=== PATIENT | male | born 1935 | race Caucasian/White ===

== ENCOUNTER 2017-01-03 07:14 | Outpatient (CLI) | payer MEDICARE, OTHER | END 2017-01-03 07:15 | disposition home or self-care (01) | DX: R05 Cough (principal); J90 Pleural effusion, not elsewhere classified ==

== ENCOUNTER 2017-01-30 13:05 | Outpatient (CLI) | payer MEDICARE, OTHER ==
[2017-01-30] MEDS ORDERED: BUFFERED LIDOCAINE 10 ML SYRINGE IU ONE (14:57)
== END 2017-01-30 13:06 | disposition home or self-care (01) ==
DX: J90 Pleural effusion, not elsewhere classified (principal); Z79.01 Long term (current) use of anticoagulants

== ENCOUNTER 2017-02-07 14:21 | Outpatient (CLI) | payer MEDICARE, OTHER | END 2017-02-07 14:22 | disposition home or self-care (01) | DX: I10 Essential (primary) hypertension (principal); I48.0 Paroxysmal atrial fibrillation; R94.6 Abnormal results of thyroid function studies; R06.09 Other forms of dyspnea ==

== ENCOUNTER 2017-10-10 10:27 | Outpatient (CLI) | payer MEDICARE, OTHER ==
[2017-10-10 19:37] LABS: BASOPHILS % (AUTO) 0.6 %; EOSINOPHILS # (AUTO) 0.1 10^3/uL (0.0-0.7); EOSINOPHILS % (AUTO) 1.1 %; HGB - HEMOGLOBIN 12.2 g/dL (14.0-18.0); LYMPHOCYTES % (AUTO) 16.1 %; MEAN CORPUSCULAR HEMOGLOBIN 26.8 pg (27.0-31.0); MEAN CORPUSCULAR HGB CONC 31.2 g/dL (32.0-36.0); MEAN CORPUSCULAR VOLUME 86.1 fL (80.0-94.0); MEAN PLATELET VOLUME 9.3 fL (7.4-11.4); MONOCYTES # (AUTO) 0.6 10^3/uL (0.0-1.0); NEUTROPHILS # (AUTO) 4.6 10^3/uL (1.5-6.6); NEUTROPHILS % (AUTO) 72.2 %; NUCLEATED RED BLOOD CELLS AUTO 0.1 /100WBC; RED BLOOD COUNT 4.53 10^6/uL (4.70-6.10); RED CELL DISTRIBUTION WIDTH 20.4 % (12.0-15.0); UNCORRECTED WHITE BLOOD COUNT 6.4 x10^3/uL; WHITE BLOOD COUNT 6.4 x10^3/uL (4.8-10.8)
[2017-10-10 20:18] LABS: PLATELET ESTIMATE, MANUAL NORMAL (130-450,000) (NORMAL); PLATELET MORPHOLOGY NORMAL APPEARANCE (NORMAL)
[2017-10-10 20:47] LABS: ALBUMIN/GLOBULIN RATIO 1.3 (1.0-2.2); BILIRUBIN,TOTAL 0.7 mg/dL (0.2-1.0); CALCIUM 9.2 mg/dL (8.5-10.3); CREATININE 1.6 mg/dL (0.6-1.2); POTASSIUM 4.6 mmol/L (3.5-5.0); TOTAL PROTEIN 7.5 g/dL (6.7-8.2)
== END 2017-10-10 10:28 | disposition home or self-care (01) ==
LOC: LAB.WCP 10:27
PROVIDERS: ATTEND Family Medicine
DX: D64.9 Anemia, unspecified (principal); J44.9 Chronic obstructive pulmonary disease, unspecified; I50.9 Heart failure, unspecified
CPT/HCPCS: 36415; 80053; 82728; 83540; 84466; 85025

== ENCOUNTER 2018-01-15 12:32 | Day surgery (SDC) | payer MEDICARE, OTHER ==
[2018-01-15] MEDS ORDERED: LACTATED RINGERS 1,000 ML IV ONE (13:13)
[2018-01-15] MEDS ORDERED: fentaNYL 100 MCG/2 ML VIAL IVP ONE (13:50)
[2018-01-15] MEDS ORDERED: MIDAZOLAM 2 MG/2 ML VIAL IVP ONE (13:50)
[2018-01-15 14:05] VITALS: BP 106/63
--- NOTE | 2018-01-15 20:07 | PROCEDURE REPORT ---
DATE OF SERVICE: 01/15/2018 Physician: Abdi Durand MD PROCEDURE PERFORMED: Esophagogastroduodenoscopy with biopsy. ENDOSCOPIST: Abdi Durand MD PRIMARY CARE PHYSICIAN: Mateus Sharpe MD INDICATION: Iron deficiency anemia. PREMEDICATION 1. Fentanyl 50 mcg. 2. Versed 4 mg IV titration. DESCRIPTION OF PROCEDURE: After informed consent was obtained, the patient was placed in the left lateral decubitus position. The video upper scope was placed into the oropharynx, which the patient self-swallowed into the esophagus. There may have been a Zenker diverticulum present. The esophagus, stomach, and duodenum were carefully examined. On withdrawal, retroflex view of the GE junction was performed. Scope was removed. The patient tolerated the procedure well. BLOOD LOSS: None COMPLICATIONS: None. TOTAL SEDATION TIME: 11 minutes. FINDINGS 1. Blue esophagus with [place] classification C4M7. Biopsy taken times several every 2 cm in 4 quadrants for screening. 2. Normal proximal stomach, but distally there is prepyloric erythema and edema in a rather serpiginous pattern. Biopsies taken to rule out Helicobacter. 3. Normal duodenal bulb and sweep. Biopsy taken to rule out celiac disease. The patient will follow up with Dr. Cantor to discuss. We will plan on restarting his Xarelto in 3-4 days. cc: Mateus Sharpe MD TD: 01/15/2018 20:06 MTDD
== END 2018-01-15 12:33 | disposition home or self-care (01) ==
LOC: SDS 12:32
PROVIDERS: ATTEND Internal Medicine Gastroenterology
PROC: 0DB58ZX Excision of Esophagus, Via Natural or Artificial Opening Endoscopic, Diagnostic (ICD-10-PCS; 2018-01-15)
PROC: 0DB98ZX Excision of Duodenum, Via Natural or Artificial Opening Endoscopic, Diagnostic (ICD-10-PCS; principal; 2018-01-15 13:30)
DX: D50.9 Iron deficiency anemia, unspecified (principal); K22.70 Barrett's esophagus without dysplasia; I48.91 Unspecified atrial fibrillation; Z79.01 Long term (current) use of anticoagulants; I10 Essential (primary) hypertension; E78.00 Pure hypercholesterolemia, unspecified; Z95.0 Presence of cardiac pacemaker; Z87.891 Personal history of nicotine dependence
CPT/HCPCS: 43239; J7120

== ENCOUNTER 2018-07-17 11:50 | Outpatient (CLI) | payer MEDICARE, OTHER ==
[2018-07-17 19:30] LABS: BASOPHILS % (AUTO) 0.4 %; EOSINOPHILS # (AUTO) 0.1 10^3/uL (0.0-0.7); EOSINOPHILS % (AUTO) 1.1 %; HGB - HEMOGLOBIN 13.7 g/dL (14.0-18.0); LYMPHOCYTES # (AUTO) 0.9 10^3/uL (1.5-3.5); LYMPHOCYTES % (AUTO) 14.9 %; MEAN CORPUSCULAR HEMOGLOBIN 30.9 pg (27.0-31.0); MEAN CORPUSCULAR VOLUME 93.7 fL (80.0-94.0); MEAN PLATELET VOLUME 9.9 fL (7.4-11.4); MONOCYTES # (AUTO) 0.7 10^3/uL (0.0-1.0); MONOCYTES % (AUTO) 11.5 %; NEUTROPHILS # (AUTO) 4.1 10^3/uL (1.5-6.6); NEUTROPHILS % (AUTO) 72.1 %; PLT - PLATELET COUNT 159 10^3/uL (130-450); RED BLOOD COUNT 4.43 10^6/uL (4.70-6.10); RED CELL DISTRIBUTION WIDTH 15.1 % (12.0-15.0); WHITE BLOOD COUNT 5.7 x10^3/uL (4.8-10.8)
== END 2018-07-17 11:51 ==
LOC: LAB.WCP 11:50
PROVIDERS: ATTEND Internal Medicine
DX: D50.9 Iron deficiency anemia, unspecified (principal)
CPT/HCPCS: 36415; 82728; 85025

== ENCOUNTER 2018-08-27 09:48 | Day surgery (SDC) | payer MEDICARE, OTHER ==
[2018-08-27] MEDS ORDERED: LACTATED RINGERS 1,000 ML IV ONE (11:00)
[2018-08-27 12:43] VITALS: BP 128/73
== END 2018-08-27 09:49 | disposition home or self-care (01) ==
LOC: SDS 09:48
PROVIDERS: ATTEND Internal Medicine
PROC: 0DJD8ZZ Inspection of Lower Intestinal Tract, Via Natural or Artificial Opening Endoscopic (ICD-10-PCS; principal; 2018-08-27 11:00)
DX: D50.0 Iron deficiency anemia secondary to blood loss (chronic) (principal); Q27.33 Arteriovenous malformation of digestive system vessel; K64.1 Second degree hemorrhoids; I48.91 Unspecified atrial fibrillation; Z79.01 Long term (current) use of anticoagulants
CPT/HCPCS: 45378; J7120

== ENCOUNTER 2018-10-24 08:00 | Outpatient (CLI) | payer MEDICARE, OTHER ==
[2018-10-24 13:20] LABS: BASOPHILS % (AUTO) 0.8 %; EOSINOPHILS % (AUTO) 0.5 %; HGB - HEMOGLOBIN 13.2 g/dL (14.0-18.0); LYMPHOCYTES # (AUTO) 0.5 10^3/uL (1.5-3.5); LYMPHOCYTES % (AUTO) 9.4 %; MEAN CORPUSCULAR HEMOGLOBIN 30.7 pg (27.0-31.0); MEAN CORPUSCULAR HGB CONC 33.4 g/dL (32.0-36.0); MEAN CORPUSCULAR VOLUME 91.8 fL (80.0-94.0); MEAN PLATELET VOLUME 9.9 fL (7.4-11.4); MONOCYTES # (AUTO) 0.8 10^3/uL (0.0-1.0); MONOCYTES % (AUTO) 15.1 %; NEUTROPHILS # (AUTO) 3.8 10^3/uL (1.5-6.6); NEUTROPHILS % (AUTO) 74.2 %; PLT - PLATELET COUNT 128 10^3/uL (130-450); RED BLOOD COUNT 4.29 10^6/uL (4.70-6.10); RED CELL DISTRIBUTION WIDTH 14.7 % (12.0-15.0); WHITE BLOOD COUNT 5.2 x10^3/uL (4.8-10.8)
[2018-10-24 14:26] LABS: % IRON SATURATION 8 % (20-50); IRON 30 ug/dL (45-182); TOTAL IRON BINDING CAPACITY 364 ug/dL (250-450); TRANSFERRIN 260 mg/dL (180-329)
== END 2018-10-24 23:59 | disposition home or self-care (01) ==
LOC: LAB.WCP 08:00
PROVIDERS: ATTEND Family Medicine
DX: D50.9 Iron deficiency anemia, unspecified (principal)
CPT/HCPCS: 36415; 82728; 83540; 84466; 85025

== ENCOUNTER 2018-12-22 10:05 | Outpatient (CLI) | payer MEDICARE, OTHER ==
[2018-12-22 19:08] LABS: BASOPHILS # (AUTO) 0.1 10^3/uL (0.0-0.1); EOSINOPHILS # (AUTO) 0.2 10^3/uL (0.0-0.7); EOSINOPHILS % (AUTO) 3.1 %; HGB - HEMOGLOBIN 13.3 g/dL (14.0-18.0); LYMPHOCYTES # (AUTO) 0.7 10^3/uL (1.5-3.5); LYMPHOCYTES % (AUTO) 12.2 %; MEAN CORPUSCULAR HEMOGLOBIN 29.6 pg (27.0-31.0); MEAN CORPUSCULAR HGB CONC 31.9 g/dL (32.0-36.0); MEAN CORPUSCULAR VOLUME 92.8 fL (80.0-94.0); MEAN PLATELET VOLUME 10.5 fL (7.4-11.4); MONOCYTES # (AUTO) 0.6 10^3/uL (0.0-1.0); MONOCYTES % (AUTO) 10.5 %; NEUTROPHILS % (AUTO) 73.2 %; PLT - PLATELET COUNT 144 10^3/uL (130-450); RED CELL DISTRIBUTION WIDTH 15.2 % (12.0-15.0); WHITE BLOOD COUNT 5.5 x10^3/uL (4.8-10.8)
[2018-12-22 19:10] LABS: CALCIUM 8.9 mg/dL (8.5-10.3); CREATININE 1.5 mg/dL (0.6-1.2); URIC ACID 8.1 mg/dL (2.6-7.2)
== END 2018-12-22 10:06 | disposition home or self-care (01) ==
LOC: LAB.WCP 10:05
PROVIDERS: ATTEND Family Medicine
DX: M10.9 Gout, unspecified (principal); D50.9 Iron deficiency anemia, unspecified
CPT/HCPCS: 36415; 80048; 82728; 83540; 84466; 84550; 85025

== ENCOUNTER 2019-06-01 | Outpatient (CLI) | payer MEDICARE, OTHER | END 2019-06-01 08:15 | disposition home or self-care (01) | DX: E78.5 Hyperlipidemia, unspecified (principal); D50.9 Iron deficiency anemia, unspecified; N28.9 Disorder of kidney and ureter, unspecified; R94.6 Abnormal results of thyroid function studies; I42.9 Cardiomyopathy, unspecified | CPT/HCPCS: 36415; 80053; 80061; 83721; 84443; 85025 ==

== ENCOUNTER 2019-12-10 09:58 | Outpatient (CLI) | payer MEDICARE, OTHER ==
--- NOTE | 2019-12-10 15:45 | XRAY Report ---
Reason: DYSPNEA ON EXERTION Procedure Date: 12/10/2019 Accession Number: [id number] / [id number] Procedure: WCP - Chest 2 View X-Ray CPT Code: 39691 Final Report FULL RESULT: EXAM: CHEST RADIOGRAPHY 2 VIEWS EXAM DATE: 12/10/2019. CLINICAL HISTORY: Dyspnea on exertion. COMPARISON: PA and lateral chest on 07/11/2017. TECHNIQUE: PA and lateral views. FINDINGS: Lungs/Pleura: Normal vasculature. Moderate right pleural effusion, filling nearly half the volume of the right hemithorax, with subsequent compressive atelectasis of the right lower lung. The left lung is clear. No pneumothorax. Mediastinum: Cardiomegaly, pacemaker, and aortic tortuosity are unchanged. Bones: Degenerative changes of the spine. Healed lateral right ninth and 10th rib fractures. IMPRESSION: Moderate right pleural effusion, filling about half the volume of the right hemithorax, and compressive atelectasis of the adjacent right lower lung, worse than on 07/11/2017. Cardiomegaly, pacemaker, and postsurgical findings are unchanged. RADIA The above call report findings were discussed with Mateus Sharpe by Dr. Jony Sabillon at 03:44 PM on 12/10/2019.
== END 2019-12-10 09:59 | disposition home or self-care (01) ==
LOC: DI.WCP 09:58
PROVIDERS: ATTEND Family Medicine
DX: J90 Pleural effusion, not elsewhere classified (principal); J98.11 Atelectasis; I51.7 Cardiomegaly; Z95.0 Presence of cardiac pacemaker
CPT/HCPCS: 71046

== ENCOUNTER 2019-12-15 08:00 | Outpatient (CLI) | payer MEDICARE, OTHER ==
[2019-12-15 14:25] LABS: CALCIUM 9.3 mg/dL (8.5-10.3); CREATININE 1.9 mg/dL (0.6-1.2)
== END 2019-12-15 23:59 | disposition home or self-care (01) ==
LOC: LAB.WCP 08:00
PROVIDERS: ATTEND Internal Medicine Cardiovascular Disease
DX: I13.10 Hypertensive heart and chronic kidney disease without heart failure, with stage 1 through stage 4 chronic kidney disease, or unspecified chronic kidney disease (principal); N18.9 Chronic kidney disease, unspecified
CPT/HCPCS: 36415; 80048

== ENCOUNTER 2019-12-23 08:46 | Outpatient (CLI) | payer MEDICARE, OTHER | END 2019-12-23 08:47 | disposition home or self-care (01) | LOC: DI 08:46 | PROVIDERS: ATTEND Family Medicine | DX: I50.9 Heart failure, unspecified (principal); I08.3 Combined rheumatic disorders of mitral, aortic and tricuspid valves; I27.20 Pulmonary hypertension, unspecified; R06.09 Other forms of dyspnea | CPT/HCPCS: 93306 ==

== ENCOUNTER 2019-12-24 08:08 | Outpatient (CLI) | payer MEDICARE, OTHER | END 2019-12-24 08:09 | disposition critical access hospital (66) | LOC: EMS 08:08 | PROVIDERS: ATTEND Surgery | DX: R40.4 Transient alteration of awareness (principal); R09.89 Other specified symptoms and signs involving the circulatory and respiratory systems | CPT/HCPCS: A0425; A0427 ==

== ENCOUNTER 2019-12-24 08:24 | Emergency (ER) | payer MEDICARE, OTHER ==
--- NOTE | 2019-12-24 08:54 | ED Physician Documentation ---
PD HPI SYNCOPE - Stated complaint Stated Complaint: SYNCOPE - Chief complaint Chief Complaint: General - History obtained from History obtained from: Patient, Family - History of Present Illness Witnessed: Witnessed Timing - onset: Today Duration: Minutes Preceding symptoms: Vision changes, Light headed, Generalized weakness Contributing factors: Recent med change Injury occurred: None Similar symptoms before: Has not had sx before Recently seen: Clinic - Additional information Additional information: 84-year-old male with a history of mitral valve repair, atrial fibrillation on Xarelto and pacer placement was in to see the doctor yesterday for back pain. He has had back pain for 2 weeks after lifting a heavy suitcase. He was prescribed some tizanidine and he took a dose of this last night and he describes his vision fading away and he just went to sleep. This morning he took another dose of the tizanidine and while he was sitting at his computer he again experienced fading of his vision and he was no longer able to communicate. He recovered and feels back to normal now. He was hypotensive in the field and he was given IV saline with improvement. He arrives to the emergency department now feeling at baseline. He does have some back spasm continued but is not severe. Review of Systems Constitutional: denies: Fever, Chills, Myalgias Eyes: denies: Decreased vision Ears: denies: Ear pain Nose: denies: Rhinorrhea / runny nose, Congestion Throat: denies: Sore throat Cardiac: denies: Chest pain / pressure, Palpitations Respiratory: denies: Dyspnea, Cough GI: denies: Abdominal Pain, Nausea, Vomiting : denies: Dysuria, Frequency Skin: denies: Rash Musculoskeletal: reports: Back pain. denies: Neck pain Neurologic: reports: Syncope. denies: Generalized weakness, Focal weakness, Numbness, Seizure, Confused, Altered mental status PD PAST MEDICAL HISTORY - Past Medical History Cardiovascular: Hypertension, High cholesterol, Coronary artery disease, Atrial fibrillation, Valve disorder, Other Respiratory: Shortness of breath, Other Endocrine/Autoimmune: None GI: GERD : None HEENT: Chronic hearing loss Psych: None Musculoskeletal: Osteoarthritis Derm: None, Other - Past Surgical History General: Colonoscopy, Other Ortho: Other Cardiovascular: Other HEENT: Cataracts - Present Medications Home Medications: Ambulatory Orders Medication Instructions Recorded Confirmed Metoprolol Succinate [Toprol Xl] 25 mg ORAL BID 08/15/16 08/27/18 Rivaroxaban [Xarelto] 20 mg ORAL DAILY 08/15/16 08/27/18 Simvastatin 20 mg ORAL DAILY 08/15/16 08/27/18 Ferrous Sulfate 2 tab PO DAILY 01/14/18 01/15/18 Furosemide 20 mg PO DAILY 01/14/18 08/27/18 Losartan Potassium 25 mg PO DAILY 01/14/18 08/27/18 Pantoprazole [Protonix] 40 mg PO DAILY 01/14/18 01/15/18 Umeclidinium Brm/Vilanterol Tr 1 puffs INH DAILY 01/14/18 01/15/18 [Anoro Ellipta 62.5-25 Mcg INH] lisinopriL [Lisinopril] 20 mg PO DAILY 01/14/18 01/15/18 - Allergies Allergies/Adverse Reactions: Allergies Allergy/AdvReac Type Severity Reaction Status Date / Time Iodine and Iodide Containing Allergy Rash Verified 08/15/16 14:46 Produc PD ED PE NORMAL - Vitals Vital signs reviewed: Yes (hypotensive ) - General General: Alert and oriented X 3, No acute distress, Well developed/nourished - HEENT HEENT: Atraumatic, PERRL, EOMI - Neck Neck: Supple, no meningeal sign, No bony TTP - Cardiac Cardiac: Other (Irregularly irregular rate and rhythm with 2 out of 6 holosystolic murmur at the sternal border.) - Respiratory Respiratory: No respiratory distress, Clear bilaterally - Abdomen Abdomen: Soft, Non tender - Back Back: No CVA TTP, No spinal TTP - Derm Derm: Normal color, Warm and dry, No rash - Extremities Extremities: No deformity, No edema, No calf tenderness / cord - Neuro Neuro: Alert and oriented X 3, 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, No motor deficit, No sensory deficit, Normal speech Eye Opening: Spontaneous Motor: Obeys Commands Verbal: Oriented GCS Score: 15 - Psych Psych: Normal mood, Normal affect Results - Vitals Vitals: Vital Signs - 24 hr 12/24/19 12/24/19 12/24/19 08:30 09:07 10:06 Temperature 37 C Heart Rate 76 75 74 Respiratory 19 18 18 Rate Blood Pressure 86/54 L 89/57 L 93/59 L O2 Saturation 97 98 97 12/24/19 12/24/19 12/24/19 11:33 12:22 13:01 Temperature Heart Rate 78 72 Respiratory 18 16 Rate Blood Pressure 103/62 72/45 L 71/49 L O2 Saturation 96 99 12/24/19 12/24/19 13:13 13:57 Temperature Heart Rate 72 72 Respiratory 17 18 Rate Blood Pressure 77/51 L 91/50 L O2 Saturation 99 99 Oxygen O2 Source Room air - EKG (time done) 0904 Rate: Rate (enter#) (80) Rhythm: Paced Compare to prior EKG: Old EKG unavailable Computer interpretation: Agree with computer - Labs Labs: Laboratory Tests 12/24/19 12/24/19 12/24/19 08:53 08:53 08:53 WBC 4.9 RBC 3.55 L Hgb 10.7 L Hct 34.4 L MCV 96.9 H MCH 30.1 MCHC 31.1 L RDW 15.6 H Plt Count 146 MPV 11.4 Neut # (Auto) 3.7 Lymph # (Auto) 0.5 L [place] # (Auto) 0.6 Eos # (Auto) 0.1 Baso # (Auto) 0.0 Absolute Nucleated RBC 0.00 Nucleated RBC % 0.0 Sodium 138 Potassium 4.1 Chloride 103 Carbon Dioxide 25 Anion Gap 10.0 BUN 31 H Creatinine 1.9 H Estimated GFR (MDRD) 34 L Glucose 108 H Lactic Acid 1.4 Calcium 8.0 L Total Bilirubin 1.5 H AST 22 ALT 14 Alkaline Phosphatase 100 Troponin I High Sens B-Natriuretic Peptide Total Protein 6.2 L Albumin 3.5 Globulin 2.7 Albumin/Globulin Ratio 1.3 Lipase 35 Urine Color Urine Clarity Urine pH Ur Specific [place] Urine Protein Urine Glucose (UA) Urine Ketones Urine Occult Blood Urine Nitrite Urine Bilirubin Urine Urobilinogen Ur Leukocyte Esterase Ur Microscopic Review Urine Culture Comments 12/24/19 12/24/19 12/24/19 08:53 08:53 14:35 WBC RBC Hgb Hct MCV MCH MCHC RDW Plt Count MPV Neut # (Auto) Lymph # (Auto) [place] # (Auto) Eos # (Auto) Baso # (Auto) Absolute Nucleated RBC Nucleated RBC % Sodium Potassium Chloride Carbon Dioxide Anion Gap BUN Creatinine Estimated GFR (MDRD) Glucose Lactic Acid Calcium Total Bilirubin AST ALT Alkaline Phosphatase Troponin I High Sens 11.5 B-Natriuretic Peptide 193 H Total Protein Albumin Globulin Albumin/Globulin Ratio Lipase Urine Color YELLOW Urine Clarity CLEAR Urine pH 6.0 Ur Specific [place] 1.010 Urine Protein NEGATIVE Urine Glucose (UA) NEGATIVE Urine Ketones NEGATIVE Urine Occult Blood NEGATIVE Urine Nitrite NEGATIVE Urine Bilirubin NEGATIVE Urine Urobilinogen 0.2 (NORMAL) Ur Leukocyte Esterase NEGATIVE Ur Microscopic Review NOT INDICATED Urine Culture Comments NOT INDICATED Procedures - IVC sono (time) 0845 Bedside IVC sono: IVC measures (cm) (2.38), IVC collapsed c insp (cm) (2.38), High CVP 1220 Bedside IVC sono: IVC measures (cm) (3.21), High CVP, Fluid overload 1350 Bedside IVC sono: IVC measures (cm) (2.07), Euvolemia PD MEDICAL DECISION MAKING - ED course Complexity details: reviewed results, re-evaluated patient, considered differential, d/w patient, d/w family ED course: 84-year-old male with a history of atrial fibrillation on Xarelto has had a syncopal episode this morning at home after taking some tizanidine. He is found to have an elevated central venous pressure after one liter of saline. He is placed onto the monitor and a work up is begun. His IVC is plethoric and fluids are stopped. He continues to feel well but develops hypotension, has basilar crackles and the IVC is re-checked and is now above failure threshold with a diameter of 3.21cm. He is administered IV lasix and watched closely with blood pressures running in the 70 range systolic. IVC is now collapsing and at 2.07cm. His pressure returns to normal and he is discharged to home. No longer has the back pain and he will avoid the tizanidine. Departure - Departure Disposition: 01 Home, Self Care Clinical Impression: Syncope Qualifiers: Syncope type: vasovagal syncope Qualified Code(s): R55 - Syncope and collapse Medication reaction Qualifiers: Encounter type: initial encounter Qualified Code(s): T50.905A - Adverse effect of unspecified drugs, medicaments and biological substances, initial encounter Condition: Stable Instructions: ED Syncope Vasovagal, ED Drug React Adverse Other Follow-Up: Mateus Sharpe MD [Primary Care Provider] - Comments: Avoid the tizanadine entirely.
[2019-12-24 09:08] LABS: BASOPHILS % (AUTO) 0.6 %; EOSINOPHILS # (AUTO) 0.1 10^3/uL (0.0-0.7); EOSINOPHILS % (AUTO) 1.6 %; HGB - HEMOGLOBIN 10.7 g/dL (14.0-18.0); LYMPHOCYTES # (AUTO) 0.5 10^3/uL (1.5-3.5); LYMPHOCYTES % (AUTO) 10.3 %; MEAN CORPUSCULAR HEMOGLOBIN 30.1 pg (27.0-31.0); MEAN CORPUSCULAR HGB CONC 31.1 g/dL (32.0-36.0); MEAN CORPUSCULAR VOLUME 96.9 fL (80.0-94.0); MEAN PLATELET VOLUME 11.4 fL (7.4-11.4); MONOCYTES # (AUTO) 0.6 10^3/uL (0.0-1.0); MONOCYTES % (AUTO) 11.3 %; NEUTROPHILS # (AUTO) 3.7 10^3/uL (1.5-6.6); NEUTROPHILS % (AUTO) 75.4 %; PLT - PLATELET COUNT 146 10^3/uL (130-450); RED BLOOD COUNT 3.55 10^6/uL (4.70-6.10); RED CELL DISTRIBUTION WIDTH 15.6 % (12.0-15.0); WHITE BLOOD COUNT 4.9 x10^3/uL (4.8-10.8)
[2019-12-24 09:14] LABS: ALBUMIN 3.5 g/dL (3.2-5.5); ALBUMIN/GLOBULIN RATIO 1.3 (1.0-2.2); BILIRUBIN,TOTAL 1.5 mg/dL (0.2-1.0); CREATININE 1.9 mg/dL (0.6-1.2); TOTAL PROTEIN 6.2 g/dL (6.7-8.2)
[2019-12-24] MEDS ORDERED: FUROSEMIDE 40 MG/4 ML VIAL IVP STA (12:28)
[2019-12-24 14:47] LABS: BILIRUBIN,URINE NEGATIVE (NEGATIVE); GLUCOSE, URINE (UA) NEGATIVE (NEGATIVE); KETONES,URINE (UA) NEGATIVE (NEGATIVE); LEUKOCYTE ESTERASE, URINE NEGATIVE (NEGATIVE); NITRITE,URINE NEGATIVE (NEGATIVE); OCCULT BLOOD,URINE NEGATIVE (NEGATIVE); PROTEIN,URINE NEGATIVE (NEGATIVE); UROBILINOGEN,URINE 0.2 (NORMAL) E.U./dL (NORMAL)
[2019-12-24 14:50] LABS: CLARITY,URINE CLEAR (CLEAR)
[2019-12-24 15:43] VITALS: BP 121/62
== END 2019-12-24 15:49 | disposition home or self-care (01) ==
LOC: EDUNIT# → ED 08:24
DX: R55 Syncope and collapse (principal); H53.8 Other visual disturbances; I95.9 Hypotension, unspecified; T42.8X5A Adverse effect of antiparkinsonism drugs and other central muscle-tone depressants, initial encounter; Y92.89 Other specified places as the place of occurrence of the external cause; M54.9 Dorsalgia, unspecified; M62.830 Muscle spasm of back; I48.91 Unspecified atrial fibrillation; Z95.2 Presence of prosthetic heart valve; Z79.01 Long term (current) use of anticoagulants; Z95.0 Presence of cardiac pacemaker; I10 Essential (primary) hypertension
CPT/HCPCS: 36415; 80053; 81001; 81003; 83605; 83690; 83880; 84484; 85025; 87086; 93005; 96374; 99284

== ENCOUNTER 2019-12-29 09:43 | Outpatient (CLI) | payer MEDICARE, OTHER ==
[2019-12-29 11:54] LABS: BASOPHILS # (AUTO) 0.1 10^3/uL (0.0-0.1); BASOPHILS % (AUTO) 0.8 %; EOSINOPHILS # (AUTO) 0.1 10^3/uL (0.0-0.7); EOSINOPHILS % (AUTO) 0.8 %; HGB - HEMOGLOBIN 12.3 g/dL (14.0-18.0); LYMPHOCYTES # (AUTO) 0.7 10^3/uL (1.5-3.5); LYMPHOCYTES % (AUTO) 11.7 %; MEAN CORPUSCULAR HEMOGLOBIN 28.5 pg (27.0-31.0); MEAN CORPUSCULAR VOLUME 95.1 fL (80.0-94.0); MEAN PLATELET VOLUME 12.1 fL (7.4-11.4); MONOCYTES # (AUTO) 0.6 10^3/uL (0.0-1.0); MONOCYTES % (AUTO) 10.2 %; NEUTROPHILS # (AUTO) 4.5 10^3/uL (1.5-6.6); PLT - PLATELET COUNT 184 10^3/uL (130-450); RED BLOOD COUNT 4.31 10^6/uL (4.70-6.10); RED CELL DISTRIBUTION WIDTH 15.8 % (12.0-15.0)
[2019-12-29 12:31] LABS: FERRITIN 28.2 ng/mL (23.9-336.2)
[2019-12-29 12:32] LABS: CREATININE 1.9 mg/dL (0.6-1.2)
[2019-12-29 12:34] LABS: FOLATE 12.04 ng/mL (5.90 - >24.8)
== END 2019-12-29 23:59 | disposition home or self-care (01) ==
LOC: LAB.WCP 09:43
PROVIDERS: ATTEND Family Medicine
DX: N28.9 Disorder of kidney and ureter, unspecified (principal); D64.9 Anemia, unspecified
CPT/HCPCS: 36415; 80048; 82607; 82728; 82746; 83540; 84466; 85025

== ENCOUNTER 2019-12-29 10:04 | Outpatient (CLI) | payer MEDICARE, OTHER ==
--- NOTE | 2019-12-29 10:46 | XRAY Report ---
Reason: CONGESTIVE HEART FAILURE Procedure Date: 12/29/2019 Accession Number: [id number] / [id number] Procedure: WCP - Chest 2 View X-Ray CPT Code: 99858 Final Report FULL RESULT: EXAM: CHEST RADIOGRAPHY EXAM DATE: 12/29/2019 10:04 AM. CLINICAL HISTORY: Congestive heart failure. right pleural effusion. COMPARISON: CHEST 2 VIEW 12/10/2019 9:50 AM. TECHNIQUE: 2 views. FINDINGS: Lungs/Pleura: Slight interval decrease in size of the moderate right pleural effusion, obscuring the right lung base. The left costophrenic recess is sharp. No pneumothorax bilaterally. No other focal opacities are evident. Mediastinum: The cardiac silhouette size is normal. Tortuous thoracic aorta. Post surgical changes in the sternum and mediastinum. Other: Stable position of the left subclavian 2-lead cardiac pacer and battery pack. Stable multilevel cervical, thoracic and lumbar spondylosis. IMPRESSION: 1. Slight interval decrease in size of the moderate right pleural effusion, obscuring the right lung base. 2. The remainder is stable. RADIA
== END 2019-12-29 23:59 | disposition home or self-care (01) ==
LOC: DI.WCP 10:04
PROVIDERS: ATTEND Family Medicine
DX: I50.9 Heart failure, unspecified (principal); J90 Pleural effusion, not elsewhere classified; N28.9 Disorder of kidney and ureter, unspecified; D64.9 Anemia, unspecified
CPT/HCPCS: 36415; 71046; 80048; 82607; 82728; 82746; 83540; 84466; 85025

== ENCOUNTER 2020-01-28 08:00 | Outpatient (CLI) | payer MEDICARE, OTHER ==
--- NOTE | 2020-01-28 09:24 | XRAY Report ---
Reason: PLEURAL EFFUSION Procedure Date: 01/28/2020 Accession Number: [id number] / [id number] Procedure: WCP - Chest 2 View X-Ray CPT Code: 08615 Final Report FULL RESULT: EXAM: CHEST RADIOGRAPHY EXAM DATE: 01/28/2020 08:45 AM. CLINICAL HISTORY: Pleural effusion. COMPARISON: CHEST 2 VIEW 12/29/2019 9:32 AM. TECHNIQUE: 2 views. FINDINGS: Lungs/Pleura: There is a rounded nodule at the aerated portion of the right lower lung measuring approximately 2.5 cm. If not recently performed, this could be further evaluated by CT. Elsewhere, moderate right pleural fluid collection appears stable. Left lung appears clear. Mediastinum: Heart size upper limits of normal and stable. Previous median sternotomy. Cardiac pacer left chest. Other: None. IMPRESSION: Right lung base nodule. If not recently performed, follow-up CT may be helpful for further evaluation. Stable moderate right unilateral pleural fluid collection. RADIA
== END 2020-01-28 23:59 | disposition home or self-care (01) ==
LOC: DI.WCP 08:00
PROVIDERS: ATTEND Family Medicine
DX: R91.1 Solitary pulmonary nodule (principal); J90 Pleural effusion, not elsewhere classified
CPT/HCPCS: 71046

== ENCOUNTER 2020-04-20 09:43 | Outpatient (CLI) | payer MEDICARE, OTHER ==
--- NOTE | 2020-04-20 11:18 | XRAY Report ---
Reason: PLEURAL EFFUSION Procedure Date: 04/20/2020 Accession Number: [id number] / [id number] Procedure: WCP - Chest 2 View X-Ray CPT Code: 73714 Final Report FULL RESULT: PROCEDURE: Chest 2 View X-Ray INDICATIONS: PLEURAL EFFUSION TECHNIQUE: 2 view(s) of the chest. COMPARISON: 01/28/2020 chest radiograph. FINDINGS: Surgical changes and devices: Sternotomy wires and cardiac pacer. Lungs and pleura: No pneumothorax. Moderate right pleural effusion with adjacent atelectasis appears slightly progressed since 01/28/2020. Mediastinum: Mediastinal contours are normal. Heart size is normal. Bones and chest wall: No suspicious bony abnormalities. Soft tissues appear unremarkable. IMPRESSION: Moderate right pleural effusion with adjacent atelectasis, slightly increased since prior study dated 01/28/2020 Reviewed by: Naseem Lindo MD on 04/20/2020 11:17 AM PDT Approved by: Naseem Lindo MD on 04/20/2020 11:17 AM PDT Station ID: [id number]
== END 2020-04-20 23:59 | disposition home or self-care (01) ==
LOC: DI.WCP 09:43
PROVIDERS: ATTEND Family Medicine
DX: J90 Pleural effusion, not elsewhere classified (principal); I50.9 Heart failure, unspecified; R06.09 Other forms of dyspnea
CPT/HCPCS: 36415; 71046; 80048; 83880; 85027

== ENCOUNTER 2020-04-20 10:29 | Outpatient (CLI) | payer MEDICARE, OTHER ==
[2020-04-20 12:41] LABS: HGB - HEMOGLOBIN 11.4 g/dL (14.0-18.0); MEAN CORPUSCULAR HEMOGLOBIN 30.3 pg (27.0-31.0); MEAN CORPUSCULAR HGB CONC 31.1 g/dL (32.0-36.0); MEAN CORPUSCULAR VOLUME 97.3 fL (80.0-94.0); MEAN PLATELET VOLUME 12.6 fL (7.4-11.4); RED BLOOD COUNT 3.76 10^6/uL (4.70-6.10); RED CELL DISTRIBUTION WIDTH 16.4 % (12.0-15.0); WHITE BLOOD COUNT 6.1 x10^3/uL (4.8-10.8)
[2020-04-20 12:43] LABS: CALCIUM 9.3 mg/dL (8.5-10.3); CREATININE 1.9 mg/dL (0.6-1.2)
== END 2020-04-20 23:59 | disposition home or self-care (01) ==
LOC: LAB.WCP 10:29
PROVIDERS: ATTEND Family Medicine
DX: I50.9 Heart failure, unspecified (principal); R06.09 Other forms of dyspnea; J90 Pleural effusion, not elsewhere classified
CPT/HCPCS: 36415; 80048; 83880; 85027

== ENCOUNTER 2020-08-05 12:01 | Outpatient (CLI) | payer MEDICARE, OTHER ==
--- NOTE | 2020-08-05 14:56 | XRAY Report ---
PROCEDURE: Chest 2 View X-Ray INDICATIONS: PLEURAL EFFUSION TECHNIQUE: 2 view(s) of the chest. COMPARISON: None. FINDINGS: Surgical changes and devices: Sternotomy wires and dual-lead cardiac pacer. No pneumothorax. Moderate right pleural effusion with adjacent atelectasis. Mediastinum: Mediastinal contours are normal. Heart size is normal. Bones and chest wall: No suspicious bony abnormalities. Chronic right rib fracture. Soft tissues ap pear unremarkable. Spondylitic changes and facet arthropathy. IMPRESSION: Moderate right pleural effusion with adjacent atelectasis. Reviewed by: Naseem Lindo MD on 08/05/2020 2:55 PM PDT Approved by: Naseem Lindo MD on 08/05/2020 2:55 PM PDT Station ID: [id number]
== END 2020-08-05 12:02 | disposition home or self-care (01) ==
LOC: DI.WCP 12:01
PROVIDERS: ATTEND Family Medicine
DX: J90 Pleural effusion, not elsewhere classified (principal); J98.11 Atelectasis; I11.0 Hypertensive heart disease with heart failure; I50.9 Heart failure, unspecified; I42.9 Cardiomyopathy, unspecified; I48.0 Paroxysmal atrial fibrillation
CPT/HCPCS: 71046; 85049; 85610; 85730

== ENCOUNTER 2020-08-05 14:22 | Outpatient (CLI) | payer MEDICARE, OTHER ==
[2020-08-05 15:37] LABS: INR 3.4 (0.8-1.2); PT - PROTHROMBIN TIME 35.3 secs (9.9-12.6)
[2020-08-05 15:51] LABS: PARTIAL THROMBOPLASTIN TIME 40.7 secs (24.9-33.3)
== END 2020-08-05 23:59 | disposition home or self-care (01) ==
LOC: LAB 14:22 → DI 15:04 → LAB 23:59
PROVIDERS: ATTEND Family Medicine
DX: J90 Pleural effusion, not elsewhere classified (principal); I50.9 Heart failure, unspecified
CPT/HCPCS: 85049; 85610; 85730

== ENCOUNTER 2020-08-09 13:12 | Outpatient (CLI) | payer MEDICARE, OTHER ==
--- NOTE | 2020-08-09 14:39 | XRAY Report ---
PROCEDURE: Post Thoracentesis 1V CXR INDICATIONS: Status post thoracentesis; assessment for pneumothorax TECHNIQUE: One view of the chest was acquired. COMPARISON: 08/05/2020 FINDINGS: Surgical changes and devices: None. Lungs and pleura: Large right pleural effusion has decreased in size but is not entirely resolved. Th ere is a tiny right basilar pneumothorax. Passive atelectasis in the right lung base. The left lung a nd pleural space are clear. Mediastinum: Mediastinal contours appear normal. Heart size is normal. Bones and chest wall: No suspicious bony lesions. Overlying soft tissues appear unremarkable. IMPRESSION: Tiny right basilar pneumothorax, consistent with pneumothorax ex vacuo given the immediately precedin g thoracentesis. This suggests limited ability of the right lung to expand. Reviewed by: Weston Angulo MD on 08/09/2020 2:38 PM PDT Approved by: Weston Angulo MD on 08/09/2020 2:38 PM PDT Station ID: [id number]
--- NOTE | 2020-08-09 15:35 | Ultrasound Report ---
PROCEDURE: Thoracentesis Puncture INDICATIONS: Pleural effusion TECHNIQUE: The indications, alternatives, benefits, risks, and complications of the procedure were explained to the patient. Written informed consent was obtained and placed in the chart. The chest was examined sonographically, and an appropriate site was chosen for thoracentesis. The skin was prepared and imer ped in the usual sterile fashion, and 1% lidocaine was infiltrated from the skin down through the ple ural surface. A 19-gauge catheter-covered needle was then introduced into the pleural space, the cat heter was advanced and the needle was withdrawn, and thereafter pleural fluid was aspirated. The cat heter was then removed and a dressing was applied. COMPARISON: None. FINDINGS: Access site: Right posteroinferior hemithorax. Needle: One-Step centesis catheter with introducer needle. Fluid volume and description: Serosanguineous Fluid sent for diagnostic testing: Not requested Medications: 1% lidocaine for local anaesthesia. Complications: None; post-procedural chest radiograph is pending to assess for pneumothorax. IMPRESSION: Successful ultrasound-guided thoracentesis. Reviewed by: Weston Angulo MD on 08/09/2020 3:34 PM PDT Approved by: Weston Angulo MD on 08/09/2020 3:34 PM PDT Station ID: [id number]
== END 2020-08-09 13:13 | disposition home or self-care (01) ==
LOC: DI 13:12
PROVIDERS: ATTEND Family Medicine
DX: J90 Pleural effusion, not elsewhere classified (principal); J95.811 Postprocedural pneumothorax
CPT/HCPCS: 32555; 71045

== ENCOUNTER 2020-09-08 08:47 | Outpatient (CLI) | payer MEDICARE, OTHER ==
--- NOTE | 2020-09-08 09:48 | CT Report ---
PROCEDURE: CHEST WO INDICATIONS: PLEURAL EFFUSION TECHNIQUE: Noncontrast 5 mm thick sections acquired from the pulmonary apices to the posterior costophrenic angl es. 7 mm thick coronal and sagittal MIP reformats were then acquired. For radiation dose reduction, the following was used: automated exposure control, adjustment of mA and/or kV according to patient size. COMPARISON: 01/03/2017. FINDINGS: Image quality: Excellent. Lungs and pleura: Large right pleural effusion is unchanged compared to 01/03/2017 and demonstrates ad jacent compressive atelectasis. Central and peripheral airways are patent and normal in caliber. Mediastinum: Heart size is enlarged. No pericardial effusion. The coronary arteries have atheroscl erotic calcifications. The thoracic aorta is atherosclerotic calcifications with no aneurysmal dilata tion. No mediastinal adenopathy by size criteria. Thoracic aorta and central pulmonary arteries are normal in size. Esophagus is normal in caliber. No hiatal hernia. Bones and chest wall: No suspicious bony lesions. Status post median sternotomy. Left chest wall pac er is present. No vertebral body compression fractures. No axillary or supraclavicular adenopathy b y size criteria. The thyroid is normal in size. Abdomen: Visualized upper abdominal solid organs and bowel loops appear normal in the absence of con trast. IMPRESSION: 1. Moderate size right pleural effusion with adjacent compressive atelectasis is unchanged compared t o the prior CT on 01/03/2017. 2. Cardiomegaly. Reviewed by: Julio Israel on 09/08/2020 9:46 AM PDT Approved by: Julio Israel on 09/08/2020 9:46 AM PDT Station ID: [id number]
== END 2020-09-08 08:48 | disposition home or self-care (01) ==
LOC: DI 08:47
PROVIDERS: ATTEND Thoracic Surgery (Cardiothoracic Vascular Surgery)
DX: J90 Pleural effusion, not elsewhere classified (principal); I51.7 Cardiomegaly
CPT/HCPCS: 71250

== ENCOUNTER 2020-10-14 09:06 | Outpatient (CLI) | payer MEDICARE, OTHER ==
[2020-10-14 12:48] LABS: BASOPHILS # (AUTO) 0.1 10^3/uL (0.0-0.1); EOSINOPHILS # (AUTO) 0.1 10^3/uL (0.0-0.7); EOSINOPHILS % (AUTO) 1.1 %; LYMPHOCYTES # (AUTO) 0.7 10^3/uL (1.5-3.5); LYMPHOCYTES % (AUTO) 9.8 %; MEAN CORPUSCULAR HEMOGLOBIN 30.5 pg (27.0-31.0); MEAN CORPUSCULAR HGB CONC 30.8 g/dL (32.0-36.0); MEAN CORPUSCULAR VOLUME 98.7 fL (80.0-94.0); MEAN PLATELET VOLUME 12.8 fL (7.4-11.4); MONOCYTES # (AUTO) 0.8 10^3/uL (0.0-1.0); MONOCYTES % (AUTO) 10.7 %; NEUTROPHILS # (AUTO) 5.6 10^3/uL (1.5-6.6); NEUTROPHILS % (AUTO) 76.9 %; PLT - PLATELET COUNT 230 10^3/uL (130-450); RED BLOOD COUNT 3.94 10^6/uL (4.70-6.10); RED CELL DISTRIBUTION WIDTH 15.9 % (12.0-15.0); WHITE BLOOD COUNT 7.3 x10^3/uL (4.8-10.8)
[2020-10-14 13:08] LABS: ALBUMIN 3.5 g/dL (3.2-5.5); ALBUMIN/GLOBULIN RATIO 0.8 (1.0-2.2); ALKALINE PHOSPHATASE 211 IU/L (42-121); ALT ALANINE AMINOTRANSFERASE 13 IU/L (10-60); AST ASPARTATE AMINOTRANSFERASE 24 IU/L (10-42); BILIRUBIN,TOTAL 1.5 mg/dL (0.2-1.0); BUN - BLOOD UREA NITROGEN 29 mg/dL (6-20); CALCIUM 9.2 mg/dL (8.5-10.3); CARBON DIOXIDE - CO2 28 mmol/L (21-32); CHLORIDE 104 mmol/L (101-111); CHOL/HDL RATIO 3.1 (<5.0); CHOLESTEROL 151 mg/dL; CREATININE 1.8 mg/dL (0.6-1.2); GLUCOSE 99 mg/dL (70-100); HDL CHOLESTEROL 48 mg/dL; LDL CHOLESTEROL,CALCULATED 80 mg/dL; LDL/HDL RATIO 1.7 (<3.6); SODIUM 143 mmol/L (135-145); TOTAL PROTEIN 7.7 g/dL (6.7-8.2); VLDL CHOLESTEROL 23 mg/dL
== END 2020-10-14 23:59 | disposition home or self-care (01) ==
LOC: LAB.WCP 09:06
PROVIDERS: ATTEND Physician Assistant Medical
DX: E78.5 Hyperlipidemia, unspecified (principal); D50.9 Iron deficiency anemia, unspecified; Z12.5 Encounter for screening for malignant neoplasm of prostate; R94.6 Abnormal results of thyroid function studies
CPT/HCPCS: 36415; 80053; 80061; 82728; 84443; 85025; G0103; 83721; 84153

== ENCOUNTER 2020-11-25 11:37 | Outpatient (CLI) | payer MEDICARE, OTHER ==
--- NOTE | 2020-11-25 12:42 | XRAY Report ---
PROCEDURE: Chest 2 View X-Ray INDICATIONS: PLEURAL EFFUSION TECHNIQUE: 2 view(s) of the chest. COMPARISON: None. FINDINGS: Surgical changes and devices: Cardiac pacer and sternotomy wires. Moderate right pleural effusion with adjacent atelectasis. No pneumothorax. Mediastinum: Mediastinal contours are normal. Heart size is normal. Chronic appearing right rib fracture with callus formation. IMPRESSION: Moderate right pleural effusion with adjacent atelectasis. Reviewed by: Naseem Lindo MD on 11/25/2020 12:40 PM PST Approved by: Naseem Lindo MD on 11/25/2020 12:40 PM PST Station ID: [id number]
== END 2020-11-25 11:38 | disposition home or self-care (01) ==
LOC: DI.WCP 11:37
PROVIDERS: ATTEND Internal Medicine
DX: J90 Pleural effusion, not elsewhere classified (principal); J98.11 Atelectasis

== ENCOUNTER 2020-11-28 08:45 | Outpatient (CLI) | payer MEDICARE, OTHER ==
--- NOTE | 2020-11-28 15:29 | Ultrasound Report ---
PROCEDURE: Chest US INDICATIONS: Evaluate for thoracentesis, reported recent pleurodesis in late September of last year, shortness of breath. TECHNIQUE: Real-time scanning was performed, and a suitable site was marked by the allocation analyst for thoracentesis to be performed by the referring clinician. COMPARISON: Prior chest CT scanning without contrast 09/08/2020, recent repeat chest plain film 11/25 showing recurrent subpulmonic right pleural effusion and global cardiomegaly.. FINDINGS: The current ultrasound shows significant pleural fluid comprised of multi septated collect ions, within the right lower hemithorax. Atelectatic lung can be seen deep to the multiple fluid michelle ections, the internal content of individual fluid collections ranges from anechoic to mildly echogeni c, to moderately echogenic complex internal fluid or debris. IMPRESSION: Multiple loculated fluid collections within the right posterior pleural space are present containing internal debris, with an appearance that would not be successful of the evacuated by small catheter t horacentesis. Contrast enhanced CT scanning may be warranted for more accurate assessment of the comp lexity within the right hemithorax, and these findings and potential need for thoracoscopic evacuatio n of the septated material within the right hemithorax was discussed in detail with the patient. The patient requests that Dr. Gomez, performed pleurodesis, be notified of these findings, and I have requested that the report and images from this study be transferred to the [facility] payworks system for his review. Reviewed by: Jessee Cabrales MD on 11/28/2020 3:28 PM PST Approved by: Jessee Cabrales MD on 11/28/2020 3:28 PM PST Station ID: [id number]
== END 2020-11-28 08:46 | disposition home or self-care (01) ==
LOC: DI 08:45
PROVIDERS: ATTEND Internal Medicine
DX: R91.8 Other nonspecific abnormal finding of lung field (principal); J90 Pleural effusion, not elsewhere classified
CPT/HCPCS: 85025; 85610; 85730

== ENCOUNTER 2020-11-28 09:08 | Outpatient (CLI) | payer MEDICARE, OTHER ==
[2020-11-28 09:37] LABS: BASOPHILS % (AUTO) 0.6 %; EOSINOPHILS # (AUTO) 0.1 10^3/uL (0.0-0.7); EOSINOPHILS % (AUTO) 1.3 %; HGB - HEMOGLOBIN 10.1 g/dL (14.0-18.0); LYMPHOCYTES # (AUTO) 0.6 10^3/uL (1.5-3.5); LYMPHOCYTES % (AUTO) 8.2 %; MEAN CORPUSCULAR HGB CONC 30.5 g/dL (32.0-36.0); MEAN CORPUSCULAR VOLUME 98.2 fL (80.0-94.0); MEAN PLATELET VOLUME 10.5 fL (7.4-11.4); MONOCYTES # (AUTO) 0.6 10^3/uL (0.0-1.0); MONOCYTES % (AUTO) 9.3 %; NEUTROPHILS # (AUTO) 5.3 10^3/uL (1.5-6.6); NEUTROPHILS % (AUTO) 79.4 %; PLT - PLATELET COUNT 241 10^3/uL (130-450); RED BLOOD COUNT 3.37 10^6/uL (4.70-6.10); RED CELL DISTRIBUTION WIDTH 16.2 % (12.0-15.0); WHITE BLOOD COUNT 6.7 x10^3/uL (4.8-10.8)
[2020-11-28 09:45] LABS: INR 1.3 (0.8-1.2); PT - PROTHROMBIN TIME 14.5 secs (9.9-12.6)
[2020-11-28 09:52] LABS: PARTIAL THROMBOPLASTIN TIME 29.3 secs (24.9-33.3)
== END 2020-11-28 09:09 | disposition home or self-care (01) ==
LOC: LAB 09:08
PROVIDERS: ATTEND Internal Medicine
DX: J90 Pleural effusion, not elsewhere classified (principal)
CPT/HCPCS: 85025; 85610; 85730

== ENCOUNTER 2021-01-20 15:00 | Outpatient (CLI) | payer MEDICARE, OTHER ==
[2021-01-20 13:32] LABS: CALCIUM 8.8 mg/dL (8.5-10.3); CREATININE 2.3 mg/dL (0.6-1.2); POTASSIUM 3.9 mmol/L (3.5-5.0)
--- NOTE | 2021-01-20 16:47 | Ultrasound Report ---
PROCEDURE: Duplex Ext Veins Right INDICATIONS: RT LEG EDEMA TECHNIQUE: Real-time imaging, as well as color and pulse Doppler interrogation, were performed of the lower extr emity deep veins from the inguinal ligament to the popliteal fossa. COMPARISON: None. FINDINGS: The deep veins are normally compressible, and free of intraluminal thrombus. Color and pu lse Doppler demonstrate normal phasic intraluminal flow. There is normal augmentation response to di stal compression maneuver. There are 2 foci of decreased echogenicity within the right lower extremity, measuring 2.1 x 1.0 x 1. 7 cm and 1.6 x 1.4 x 0.7 cm. The bladder is along the medial aspect of the popliteal fossa with the f ormer near the superior aspect. IMPRESSION: Fluid collections at the popliteal fossa suggestive of Cardona's cyst. Reviewed by: Andreia Orr MD on 01/20/2021 4:45 PM PST Approved by: Andreia Orr MD on 01/20/2021 4:45 PM [facility] Station ID: [id number]
== END 2021-01-20 15:01 | disposition home or self-care (01) ==
LOC: DI 15:00
PROVIDERS: ATTEND Physician Assistant Medical
DX: R93.6 Abnormal findings on diagnostic imaging of limbs (principal); I27.20 Pulmonary hypertension, unspecified; N18.9 Chronic kidney disease, unspecified
CPT/HCPCS: 36415; 80048

== ENCOUNTER 2021-02-23 12:09 | Outpatient (CLI) | payer MEDICARE, OTHER ==
[2021-02-23 12:22] LABS: CALCIUM 8.9 mg/dL (8.5-10.3); CREATININE 2.2 mg/dL (0.6-1.2)
== END 2021-02-23 23:59 | disposition home or self-care (01) ==
LOC: LAB.WCP 12:09
PROVIDERS: ATTEND Physician Assistant Medical
DX: I10 Essential (primary) hypertension (principal)
CPT/HCPCS: 36415; 80048; 80053

== ENCOUNTER 2021-03-16 08:00 | Outpatient (CLI) | payer MEDICARE, OTHER ==
[2021-03-16 12:41] LABS: CALCIUM 8.9 mg/dL (8.5-10.3); CREATININE 2.3 mg/dL (0.6-1.2); POTASSIUM 4.3 mmol/L (3.5-5.0)
== END 2021-03-16 23:59 | disposition home or self-care (01) ==
LOC: LAB.WCP 08:00
PROVIDERS: ATTEND Internal Medicine Cardiovascular Disease
DX: I27.20 Pulmonary hypertension, unspecified (principal)
CPT/HCPCS: 36415; 80048

== ENCOUNTER 2021-04-17 08:00 | Outpatient (CLI) | payer MEDICARE, OTHER ==
[2021-04-17 12:24] LABS: BASOPHILS % (AUTO) 0.7 %; EOSINOPHILS % (AUTO) 0.5 %; HCT - HEMATOCRIT 23.2 % (42.0-52.0); LYMPHOCYTES # (AUTO) 0.5 10^3/uL (1.5-3.5); LYMPHOCYTES % (AUTO) 8.5 %; MEAN CORPUSCULAR HEMOGLOBIN 28.3 pg (27.0-31.0); MEAN CORPUSCULAR HGB CONC 29.7 g/dL (32.0-36.0); MEAN CORPUSCULAR VOLUME 95.1 fL (80.0-94.0); MEAN PLATELET VOLUME 11.5 fL (7.4-11.4); MONOCYTES # (AUTO) 0.6 10^3/uL (0.0-1.0); MONOCYTES % (AUTO) 9.4 %; NEUTROPHILS # (AUTO) 4.7 10^3/uL (1.5-6.6); NEUTROPHILS % (AUTO) 80.4 %; PLT - PLATELET COUNT 227 10^3/uL (130-450); RED BLOOD COUNT 2.44 10^6/uL (4.70-6.10); RED CELL DISTRIBUTION WIDTH 17.5 % (12.0-15.0); WHITE BLOOD COUNT 5.9 x10^3/uL (4.8-10.8)
[2021-04-17 12:56] LABS: ALBUMIN 3.8 g/dL (3.2-5.5); ALBUMIN/GLOBULIN RATIO 1.2 (1.0-2.2); ALKALINE PHOSPHATASE 130 IU/L (42-121); ALT ALANINE AMINOTRANSFERASE 14 IU/L (10-60); AST ASPARTATE AMINOTRANSFERASE 24 IU/L (10-42); BILIRUBIN,TOTAL 1.1 mg/dL (0.2-1.0); BUN - BLOOD UREA NITROGEN 42 mg/dL (6-20); CARBON DIOXIDE - CO2 26 mmol/L (21-32); CHLORIDE 102 mmol/L (101-111); CHOL/HDL RATIO 1.9 (<5.0); CHOLESTEROL 134 mg/dL; CREATININE 2.5 mg/dL (0.6-1.2); GFR - MDRD 25 (>89); GLUCOSE 117 mg/dL (70-100); HDL CHOLESTEROL 71 mg/dL; LDL CHOLESTEROL,CALCULATED 53 mg/dL; LDL/HDL RATIO 0.7 (<3.6); POTASSIUM 4.3 mmol/L (3.5-5.0); SODIUM 141 mmol/L (135-145); TRIGLYCERIDES 48 mg/dL; VLDL CHOLESTEROL 10 mg/dL
[2021-04-17 13:04] LABS: HGB - HEMOGLOBIN 6.9 g/dL (14.0-18.0)
[2021-04-17 13:25] LABS: THYROID STIMULATING HORMONE 4.55 uIU/mL (0.34-5.60)
[2021-04-17 13:32] LABS: FERRITIN 13.6 ng/mL (23.9-336.2)
[2021-04-17 13:36] LABS: FOLATE 7.11 ng/mL (5.90 - >24.8)
== END 2021-04-17 23:59 | disposition home or self-care (01) ==
LOC: LAB.WCP 08:00
PROVIDERS: ATTEND Physician Assistant Medical
DX: E78.5 Hyperlipidemia, unspecified (principal); I48.0 Paroxysmal atrial fibrillation; K21.9 Gastro-esophageal reflux disease without esophagitis
CPT/HCPCS: 36415; 80053; 80061; 82607; 82728; 82746; 83721; 84443; 85025

== ENCOUNTER 2021-04-18 18:55 | Inpatient (IN) | payer MEDICARE, OTHER ==
[2021-04-18] MEDS ORDERED: PANTOPRAZOLE 40 MG VIAL IVP STA (19:30)
--- NOTE | 2021-04-18 19:33 | ED Physician Documentation ---
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 He states that he has chronic renal disease and was called by his doctor today to state that his blood counts had dropped to a hemoglobin of 6.9. He states he has been feeling increasingly short of breath and weak over the past 3 to 4 weeks. He states he was started on iron about 8 months ago and since that time his stool has been dark. His last colonoscopy was 2018 and he states that this showed polyps. He had an EGD last year after a pill became stuck in his esophagus, he states there was no ulcer at that time. He states that he has no abdominal pain. He states he is unable to walk up a flight of stairs currently. He states he can make it across the room but he feels tired when he reaches the other side. Denies any abdominal pain currently. Review of Systems Ten Systems: 10 systems reviewed and negative Constitutional: denies: Fever, Chills Ears: denies: Ear pain Nose: denies: Rhinorrhea / runny nose, Congestion Throat: denies: Sore throat Cardiac: denies: Chest pain / pressure, Palpitations GI: reports: Bloody / black stool (patient has dark stools since being on iron for the past 8 months). denies: Vomiting, Diarrhea Skin: denies: Rash Musculoskeletal: denies: Neck pain, Back pain Neurologic: denies: Headache PD PAST MEDICAL HISTORY - Past Medical History Past Medical History: Yes Cardiovascular: Hypertension, High cholesterol, Coronary artery disease, Atrial fibrillation, Valve disorder, Other Respiratory: Shortness of breath, Other Endocrine/Autoimmune: None GI: GERD : None HEENT: Chronic hearing loss Psych: None Musculoskeletal: Osteoarthritis Derm: None, Other - Past Surgical History Past Surgical History: Yes General: Colonoscopy, Other Ortho: Other Cardiovascular: Other HEENT: Cataracts - Present Medications Home Medications: Ambulatory Orders Medication Instructions Recorded Confirmed Metoprolol Succinate [Toprol Xl] 25 mg ORAL BID 08/15/16 08/27/18 Rivaroxaban [Xarelto] 20 mg ORAL DAILY 08/15/16 08/27/18 Simvastatin 20 mg ORAL DAILY 08/15/16 08/27/18 Ferrous Sulfate 2 tab PO DAILY 01/14/18 01/15/18 Furosemide 20 mg PO DAILY 01/14/18 08/27/18 Losartan Potassium 25 mg PO DAILY 01/14/18 08/27/18 Pantoprazole [Protonix] 40 mg PO DAILY 01/14/18 01/15/18 Umeclidinium Brm/Vilanterol Tr 1 puffs INH DAILY 01/14/18 01/15/18 [Anoro Ellipta 62.5-25 Mcg INH] lisinopriL [Lisinopril] 20 mg PO DAILY 01/14/18 01/15/18 - Allergies Allergies/Adverse Reactions: Allergies Allergy/AdvReac Type Severity Reaction Status Date / Time Iodine and Iodide Containing Allergy Rash Verified 04/18/21 19:03 Produc tizanidine AdvReac syncope Verified 04/18/21 19:03 - Social History Does the pt smoke?: No Does the pt have substance abuse?: No - POLST Patient has POLST: No PD ED PE NORMAL - Vitals Vital signs reviewed: Yes - General General: Alert and oriented X 3, No acute distress, Other (very hard of hearing.) - HEENT HEENT: Moist mucous membranes - Neck Neck: Supple, no meningeal sign - Cardiac Cardiac: RRR - Respiratory Respiratory: No respiratory distress, Clear bilaterally - Abdomen Abdomen: Soft, Non tender, Non distended - Rectal Rectal: Pt declined - Back Back: No CVA TTP, No spinal TTP - Derm Derm: Warm and dry - Extremities Extremities: Other (mild edema B LE) - Neuro Neuro: Alert and oriented X 3 Results - Vitals Vitals: Vital Signs - 24 hr 04/18/21 04/18/21 19:01 19:28 Temperature 36.4 C L Heart Rate 74 74 Respiratory 14 21 Rate Blood Pressure 96/43 L 99/59 L O2 Saturation 100 100 Oxygen O2 Source Room air - Labs Labs: Laboratory Tests 04/18/21 04/18/21 04/18/21 19:38 19:38 19:38 WBC 4.4 L RBC 2.15 L Hgb 6.4 L* Hct 20.4 L MCV 94.9 H MCH 29.8 MCHC 31.4 L RDW 17.6 H Plt Count 197 MPV 9.9 Neut # (Auto) 3.3 Lymph # (Auto) 0.5 L Carver # (Auto) 0.4 Eos # (Auto) 0.1 Baso # (Auto) 0.0 Absolute Nucleated RBC 0.00 Nucleated RBC % 0.0 PT INR APTT Sodium 137 Potassium 3.5 Chloride 99 L Carbon Dioxide 24 Anion Gap 14.0 H BUN 39 H Creatinine 2.6 H Estimated GFR (MDRD) 24 L Glucose 112 H Calcium 8.5 Total Bilirubin 0.9 AST 23 ALT 14 Alkaline Phosphatase 123 H Total Protein 6.6 L Albumin 3.6 Globulin 3.0 Albumin/Globulin Ratio 1.2 Lipase 42 Nasal Adenovirus (PCR) Nasal B. parapertussis DNA (PCR) Nasal Coronavir 229E PCR Nasal Coronavir HKU1 PCR Nasal Coronavir NL63 PCR Nasal Coronavir OC43 PCR Nasal Enterovir/Rhinovir PCR Nasal Influenza B PCR Nasal Influenza A PCR Nasal Parainfluen 1 PCR Nasal Parainfluen 2 PCR Nasal Parainfluen 3 PCR Nasal Parainfluen 4 PCR Nasal RSV (PCR) Nasal B.pertussis DNA PCR Nasal C.pneumoniae (PCR) Valeriy Human Metapneumo PCR Nasal M.pneumoniae (PCR) Nasal SARS-CoV-2 (PCR) Blood Type B POSITIVE Antibody Screen NEGATIVE 04/18/21 04/18/21 19:38 19:55 WBC RBC Hgb Hct MCV MCH MCHC RDW Plt Count MPV Neut # (Auto) Lymph # (Auto) Carver # (Auto) Eos # (Auto) Baso # (Auto) Absolute Nucleated RBC Nucleated RBC % PT 24.2 H INR 2.3 H APTT 37.0 H Sodium Potassium Chloride Carbon Dioxide Anion Gap BUN Creatinine Estimated GFR (MDRD) Glucose Calcium Total Bilirubin AST ALT Alkaline Phosphatase Total Protein Albumin Globulin Albumin/Globulin Ratio Lipase Nasal Adenovirus (PCR) NOT DETECTED Nasal B. parapertussis DNA (PCR) NOT DETECTED Nasal Coronavir 229E PCR NOT DETECTED Nasal Coronavir HKU1 PCR NOT DETECTED Nasal Coronavir NL63 PCR NOT DETECTED Nasal Coronavir OC43 PCR NOT DETECTED Nasal Enterovir/Rhinovir PCR NOT DETECTED Nasal Influenza B PCR NOT DETECTED Nasal Influenza A PCR NOT DETECTED Nasal Parainfluen 1 PCR NOT DETECTED Nasal Parainfluen 2 PCR NOT DETECTED Nasal Parainfluen 3 PCR NOT DETECTED Nasal Parainfluen 4 PCR NOT DETECTED Nasal RSV (PCR) NOT DETECTED Nasal B.pertussis DNA PCR NOT DETECTED Nasal C.pneumoniae (PCR) NOT DETECTED Valeriy Human Metapneumo PCR NOT DETECTED Nasal M.pneumoniae (PCR) NOT DETECTED Nasal SARS-CoV-2 (PCR) NOT DETECTED Blood Type Antibody Screen PD MEDICAL DECISION MAKING - ED course Complexity details: reviewed results, re-evaluated patient, considered differential, d/w patient, d/w family, d/w crm consultant ED course: 85-year-old male with symptomatic anemia, significant drop in his hemoglobin from baseline. Has a history of esophageal ulcers, fecal occult blood test is of little value given his iron use and continued to black stools for months. He declines a rectal exam at this time. Discussed the case with Dr. Quiroga, general surgery on-call who will plan on endoscopy and likely colonoscopy tomorrow. We will admit to the hospitalist for further care. Discussed with Dr. Mckenzie, hospitalist who accepts. Patient was given Protonix here for possible ulcers. This document was made in part using voice recognition software. While efforts are made to proofread this document, sound alike and grammatical errors may occur. Departure - Departure Disposition: ED Place in Observation Clinical Impression: Symptomatic anemia Condition: Stable Discharge Date/Time: 04/18/21 20:29
[2021-04-18 19:47] LABS: BASOPHILS % (AUTO) 0.7 %; EOSINOPHILS # (AUTO) 0.1 10^3/uL (0.0-0.7); EOSINOPHILS % (AUTO) 1.4 %; HCT - HEMATOCRIT 20.4 % (42.0-52.0); LYMPHOCYTES # (AUTO) 0.5 10^3/uL (1.5-3.5); LYMPHOCYTES % (AUTO) 11.9 %; MEAN CORPUSCULAR HEMOGLOBIN 29.8 pg (27.0-31.0); MEAN CORPUSCULAR HGB CONC 31.4 g/dL (32.0-36.0); MEAN CORPUSCULAR VOLUME 94.9 fL (80.0-94.0); MEAN PLATELET VOLUME 9.9 fL (7.4-11.4); MONOCYTES # (AUTO) 0.4 10^3/uL (0.0-1.0); MONOCYTES % (AUTO) 9.6 %; NEUTROPHILS # (AUTO) 3.3 10^3/uL (1.5-6.6); NEUTROPHILS % (AUTO) 75.9 %; PLT - PLATELET COUNT 197 10^3/uL (130-450); RED BLOOD COUNT 2.15 10^6/uL (4.70-6.10); RED CELL DISTRIBUTION WIDTH 17.6 % (12.0-15.0); WHITE BLOOD COUNT 4.4 x10^3/uL (4.8-10.8)
[2021-04-18 19:50] LABS: HGB - HEMOGLOBIN 6.4 g/dL (14.0-18.0)
[2021-04-18] MEDS ORDERED: ONDANSETRON 4 MG/2 ML VIAL IVP PRN (19:58)
[2021-04-18] MEDS ORDERED: MORPHINE 2 MG/ML CARPUJECT IVP PRN (19:58)
[2021-04-18] MEDS ORDERED: SODIUM CHLORIDE FLUSH 0.9% 10 ML SYRINGE IVP PRN (19:58)
[2021-04-18] MEDS ORDERED: ONDANSETRON ODT 4 MG TABLET TL PRN (19:58)
[2021-04-18 19:59] LABS: INR 2.3 (0.8-1.2); PT - PROTHROMBIN TIME 24.2 secs (9.9-12.6)
[2021-04-18 20:00] LABS: ALBUMIN 3.6 g/dL (3.2-5.5); ALBUMIN/GLOBULIN RATIO 1.2 (1.0-2.2); BILIRUBIN,TOTAL 0.9 mg/dL (0.2-1.0); CALCIUM 8.5 mg/dL (8.5-10.3); CREATININE 2.6 mg/dL (0.6-1.2); POTASSIUM 3.5 mmol/L (3.5-5.0); TOTAL PROTEIN 6.6 g/dL (6.7-8.2)
--- NOTE | 2021-04-18 20:11 | HISTORY & PHYSICAL EXAMINATION ---
Chief Complaint - Chief Complaint Chief Complaint: ANEMIA History of Present Illness - Admitted From Admitted From:: home via ER - History Obtained From Records Reviewed: [facility] History obtained from: patient and Dr. Pro Exam Limitations: none - History of Present Illness HPI Comment/Other: This is an 85-year-old white male who has a previous history of iron deficiency anemia due to Blue's esophagus and esophageal ulcers as well as diverticulosis that now presents with 2 months of fatigue and weakness.He recalls having a colonoscopy twice with cauterization twice in August and October 2018 done with [facility] because of lower GI bleeding. He has a baseline anemia of 10 g of hemoglobin. In the last 2 to 3 weeks he has gotten more short of breath. It is gotten to the point that he cannot climb stairs. He says walking 20 feet is very difficult. Climbing stairs is impossible.Chronic atrial fibrillation and has had ablation with a pacer in place. His heart rate is gotten faster but he does not think it is the fast heart rate of atrial fibrillation. He has lost about 20 pounds since earlier this year. Due to lack of appetite. Not wanting to eat very much. His stools are intermittently dark and they have been for years because of iron replacement therapy.He denies chest pain. His legs have gotten more more swollen.As long as he stays still, sits or lays in bed, he feels better. He went to see his primary care provider today. His anemia was much worse than usual and he was told to come to the emergency room for transfusion. His baseline hemoglobin of 10 g of hemoglobin has diminished to 6.9. His temperature is 36.4. Pulse 74. Blood pressure 96/43. Respirations 14 and he is 100% on room air. He had moist mucous membranes. No respiratory distress with clear lungs. A nontender abdomen that was not distended. Mild bilateral lower extremity edema. He requested that a rectal not be done.The emergency room physician is asking that the hospitalist medicine service placed this patient in observation for GI bleed. He has already consulted with Dr. Blayne Quiroga, general surgery, who states he will do an EGD and colonoscopy in the morning. 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 Last Echo ) Respiratory: reports: Shortness of breath, Other (engraver lettering pleural effusion since 2016, VATS 09/2020) Neuro: reports: Migraines Endocrine/Autoimmune: reports: None GI: reports: GERD, Ulcers (esophagus due to pill), Colon polyps : reports: Benign prostate hypertrophy, Retention (with VATS), Other (1994 Bladder ca, Grade II/III, TCC, WADE, s/p BCG) HEENT: reports: Chronic hearing loss Psych: reports: None Musculoskeletal: reports: Osteoarthritis (L and C spine, Knees), Gout Derm: reports: None, Other MRSA Hx?: No - Past Surgical History General: reports: Colonoscopy (01/2002, 09/2016, 08/2018, 10/2018), EGD (01/2018, 09/2020), Other (inguinal hernia repair) Cardiovascular: reports: Valve replacement, Pacemaker, Cardiac catheterization, Other HEENT: reports: Cataracts (08/2006, 07/2008), Other (laser surgery eyes 11/2014) Derm: reports: Skin cancer surgery (SCCA jaw 11/1996, BCCa 08/2008, 02/2011, 05/2013) - Family & Social History Family History Comment/Other: Dad at age 78 of coronary artery disease. 1 sister has osteoarthritis. 2 children are healthy Living arrangement: At home Living Situation: With spouse/s.o. Social History Notes: for close to 64 years next week. 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 in the [facility] [place] area. He used to smoke. 1-1/2 packs/day for 4 years and quit in 1968. No history of alcohol use. No history of recreational substance abuse. - Substance History Use: Uses substance without health or social issues: NONE Abuse: Recurrent use of substance despite neg consequences: NONE Dependence: Experiences withdrawal or developed tolerances: NONE - POLST Patient has POLST: No POLST Status: DNR Meds/Allgy - Home Medications Home Medications: Ambulatory Orders Medication Instructions Recorded Confirmed RX: Metoprolol Succinate [Toprol 25 mg ORAL BID 08/15/16 08/27/18 Xl] RX: Simvastatin 20 mg ORAL DAILY 08/15/16 08/27/18 Rivaroxaban [Xarelto] 20 mg ORAL DAILY 08/15/16 08/27/18 Pantoprazole [Protonix] 40 mg PO DAILY 01/14/18 01/15/18 RX: Ferrous Sulfate 2 tab PO DAILY 01/14/18 01/15/18 RX: Furosemide 20 mg PO DAILY 01/14/18 08/27/18 RX: Losartan Potassium 25 mg PO DAILY 01/14/18 08/27/18 RX: lisinopriL [Lisinopril] 20 mg PO DAILY 01/14/18 01/15/18 Umeclidinium Brm/Vilanterol Tr 1 puffs INH DAILY 01/14/18 01/15/18 [Anoro Ellipta 62.5-25 Mcg INH] - Allergies Allergies/Adverse Reactions: Allergies Allergy/AdvReac Type Severity Reaction Status Date / Time Iodine and Iodide Containing Allergy Rash Verified 04/18/21 19:03 Produc tizanidine AdvReac syncope Verified 04/18/21 19:03 Review of Systems - Constitutional Constitutional: reports: Fatigue, Malaise, Poor appetite, Weight loss (20 llbs since earlier this year. No appetite). denies: Diaphoresis, Night sweats - Eyes Eyes: denies: Pain, Irritation, Amaurosis, Blurred vision - Ears, Nose & Throat Ears, Nose & Throat: reports: Hearing loss. denies: Ear pain, Tinnitus, Vertigo, Nasal pain, Postnasal drainage, Sore throat, Hoarseness - Cardiovascular Cariovascular: reports: Irregular heart rate, Palpitations, Edema, Exertional dyspnea (20 feeet for the last 2 weeks), Decr. exercise tolerance (for the last few yrs, worse this month), Orthopnea. denies: Syncope - Respiratory Respiratory: reports: Cough (mild, nonproductive), Orthopnea, SOB with exertion (for yrs w pulm HTN but worse in last 2-3 weeks). denies: Hemoptysis, Pleuritic pain - Gastrointestinal Gastrointestinal: reports: Constipation, Black stools. denies: Abdominal pain, Abdominal distention, Coffee grounds emesis - Genitourinary Genitourinary: reports: Frequency, Urgency, Nocturia. denies: Dysuria, Hematuria, Incontinence, Flank pain - Musculoskeletal Musculoskeletal: reports: Stiffness, Gout, Joint pain. denies: Muscle pain, Back pain, Muscle aches - Integumentary Integumentary: denies: Rash, Pruritis, Lesions, Dryness - Neurological Neurological: reports: General weakness. denies: Focal weakness, Headache, Dizziness, Numbness, Memory problems - Psychiatric Psychiatric: denies: Depression, Anxiety, Suicidal - Endocrine Endocrine: reports: Intolerance to cold. denies: Polyuria, Polydypsia, Polyphagia - Hematologic/Lymphatic Hematologic/Lymphatic: reports: Anemia, Bruising. denies: Petechiae, Blood clots, Lymphadenopathy, Bleeding tendencies Prior Level of Functionality: He is deaf and is still quite independent with activities of daily living until last 2 to 3 weeks. He cannot do anything such as getting dressed, taking a shower without being severely short of breath. While he has arthritis, he does not use any durable medical equipment. Exam - Vital Signs Reviewed Vital Signs: Yes Vital Signs: Vital Signs x48h Temp Pulse Resp BP Pulse Ox 04/18/21 19:28 74 21 99/59 L 100 04/18/21 19:01 36.4 C L 74 14 96/43 L 100 - Physical Exam General Appearance: positive: Alert, Mild distress, Other (I think he is mildly short of breath was trying to speak to me but he says "I am fine right at this moment". 5 foot 8 inches tall and weighs 74.5 kg.) Eyes Bilateral: positive: PERRL, EOMI ENT: positive: No signs of dehydration Neck: positive: No JVD. negative: Stiff neck Respiratory: positive: Chest non-tender. negative: Wheezes, Rales, Rhonchi Cardiovascular: positive: Regular rate & rhythm, Systolic murmur, Diastolic murmur. negative: Gallop/S4, Friction rub Abdomen: positive: Non-tender, No organomegaly, Nml bowel sounds, No distention Back: negative: CVA tenderness (R), CVA tenderness (L) Skin: positive: No rash, Warm, Dry, Pallor Extremities: positive: Full ROM, Pedal edema (Does not like having his skin tested for edema, he says it is a stinging discomfort) Neurologic/Psychiatric: positive: Oriented x3, CN's nml (2-12) (except his deafness), Motor nml, Weakness (generalized and due to sob, just sitting up makes him tachypneic) Conclusion/Plan - Problem List (1) Acute on chronic blood loss anemia Conclusion/Plan: This is a gentleman who has a history of GI pathology including Blue's, a single esophageal ulcer from a retained pill, and diverticular bleeding. Unfortunately it is not clear about how chronic his blood loss is via melanotic stool since he takes iron supplements and his stool is always "dark". He has no abdominal pain but has a 20 pound weight loss with anorexia over the last few months. He has a history of bladder cancer. A pleural effusion that required VATS. I told him that we must suspect malignancy and need to follow through with the work-up. Plan: Observation status General surgery consult Patient will be seen in the morning for EGD and colonoscopy Suprep tonight N.p.o. after midnight Serial hemograms Transfuse if below 7 PPI BID (2) Dyspnea on exertion Conclusion/Plan: This is a gentleman who has pulmonary hypertension, valvular heart disease, chronic anemia. He is always short of breath but the last few weeks have been much more severe for him. He is not hypoxic. Plan: Chest x-ray in the morning for completeness sake. He had an echocardiogram in December of this year and is followed by cardiology on a regular basis. 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 (3) Chronic kidney disease, stage IV (severe) Conclusion/Plan: In 2019 his creatinine was 1.6-1.8. Starting in 2020 he crept up to 2.2 then 2.3 and today he is the most severe has been at 2.6. CT of the abdomen was not done on the basis of creatinine. He is also not been able to undergo coronary angiogram because of chronic kidney disease. Has a history of urinary retention episode with his VATS procedure. Plan: Repeat labs in the morning once he is received blood and IV fluids Continue to avoid nephrotoxic agents Retroperitoneal ultrasound in the morning (4) Pulmonary hypertension Conclusion/Plan: Followed closely by cardiology. He is on Lasix 20 a day. At this time I will hold off on giving him Lasix for today. He is going to be receiving Suprep, on a need to balance dehydration with fluid overload in the face of the Suprep with blood transfusion. Will monitor for signs and symptoms of congestive heart failure. His exam indicates that right-sided heart failure may be slightly worse than usual with his leg edema, shortness of breath. (5) Do not resuscitate status Conclusion/Plan: He wants to note this in the chart. - Lab Results Lab results reviewed: Yes Fish Bones: 04/18/21 19:38 04/18/21 19:38 - Diagnostic Imaging Results Diagnostic Imaging Results: positive: Final report reviewed Core Measures - Anticipated LOS I expect patient to be DC'd or transferred within 96 hours.: Yes - DVT/VTE - Prophylaxis VTE/DVT Device ordered at admit?: Yes
--- OUTSIDE RECORDS SUMMARY | 2021-04-18 20:19 | EXTERNAL MEDICAL SUMMARY RPT | Continuity of Care Document ---
:1935 Demographics Phone Unavailable Preferred Language Unknown Marital Status Unknown Nondenominational Affiliation Unknown Race Unknown Ethnic Group Unknown Author Organization [facility] Address [address] [place] [address] Phone Allergies Encounters Medications Problems Results
[2021-04-18 20:53] LABS: B. PARAPERTUSSIS- RESP PCR PAN NOT DETECTED; B. PERTUSSIS- RESP PCR PANEL NOT DETECTED; C. PNEUMONIAE- RESP PCR PANEL NOT DETECTED; CORONAVIRUS 229E-RESP PCR NOT DETECTED; CORONAVIRUS HKU1-RESP PCR NOT DETECTED; CORONAVIRUS NL63-RESP PCR NOT DETECTED; CORONAVIRUS OC43-RESP PCR NOT DETECTED; HUMAN METAPNEUMOVIRUS NOT DETECTED; INFLUENZA A- RESP PCR PANEL NOT DETECTED; INFLUENZA B - RESP PCR PANEL NOT DETECTED; M. PNEUMONIAE- RESP PCR PANEL NOT DETECTED; PARAINFLUENZA VIRUS 1 NOT DETECTED; PARAINFLUENZA VIRUS 2 NOT DETECTED; PARAINFLUENZA VIRUS 3 NOT DETECTED; PARAINFLUENZA VIRUS 4 NOT DETECTED; RHINOVIRUS/ENTEROVIRUS NOT DETECTED; RSV- RESP PCR PANEL NOT DETECTED; SARS-CoV-2 -RESP PCR PANEL NOT DETECTED
[2021-04-18 20:57] LABS: BILIRUBIN,URINE NEGATIVE (NEGATIVE); GLUCOSE, URINE (UA) NEGATIVE (NEGATIVE); KETONES,URINE (UA) NEGATIVE (NEGATIVE); LEUKOCYTE ESTERASE, URINE NEGATIVE (NEGATIVE); NITRITE,URINE NEGATIVE (NEGATIVE); OCCULT BLOOD,URINE NEGATIVE (NEGATIVE); PROTEIN,URINE NEGATIVE (NEGATIVE); UROBILINOGEN,URINE 0.2 (NORMAL) E.U./dL (NORMAL)
[2021-04-18] MEDS: PANTOPRAZOLE 40 MG VIAL IVP SCH (20:59)
[2021-04-18 21:00] LABS: CLARITY,URINE CLEAR (CLEAR)
[2021-04-18] MEDS: SODIUM/POTASSIUM/MAG SULFATES 354 ML PREP KIT PO SCH (21:00)
[2021-04-18] MEDS: LACTATED RINGERS 1,000 ML IV SCH (21:00)
[2021-04-19] MEDS: SODIUM CHLORIDE FLUSH 0.9% 10 ML SYRINGE IVP SCH ×3 (01:48→16:40)
[2021-04-19] MEDS: SODIUM/POTASSIUM/MAG SULFATES 354 ML PREP KIT PO SCH (02:09)
[2021-04-19 02:40] LABS: BASOPHILS % (AUTO) 0.7 %; EOSINOPHILS # (AUTO) 0.1 10^3/uL (0.0-0.7); EOSINOPHILS % (AUTO) 1.2 %; HCT - HEMATOCRIT 24.5 % (42.0-52.0); HGB - HEMOGLOBIN 7.6 g/dL (14.0-18.0); LYMPHOCYTES # (AUTO) 0.5 10^3/uL (1.5-3.5); LYMPHOCYTES % (AUTO) 11.8 %; MEAN CORPUSCULAR HEMOGLOBIN 29.3 pg (27.0-31.0); MEAN CORPUSCULAR VOLUME 94.6 fL (80.0-94.0); MONOCYTES # (AUTO) 0.5 10^3/uL (0.0-1.0); MONOCYTES % (AUTO) 12.5 %; NEUTROPHILS # (AUTO) 3.1 10^3/uL (1.5-6.6); NEUTROPHILS % (AUTO) 73.1 %; PLT - PLATELET COUNT 197 10^3/uL (130-450); RED BLOOD COUNT 2.59 10^6/uL (4.70-6.10); WHITE BLOOD COUNT 4.2 x10^3/uL (4.8-10.8)
[2021-04-19 05:12] LABS: CALCIUM 9.1 mg/dL (8.5-10.3); CREATININE 2.6 mg/dL (0.6-1.2); POTASSIUM 4.7 mmol/L (3.5-5.0)
[2021-04-19] MEDS: LACTATED RINGERS 1,000 ML IV SCH (08:19)
[2021-04-19] MEDS: PANTOPRAZOLE 40 MG VIAL IVP SCH ×2 (08:19→20:58)
[2021-04-19 08:36] LABS: EOSINOPHILS % (AUTO) 0.5 %; HCT - HEMATOCRIT 24.4 % (42.0-52.0); HGB - HEMOGLOBIN 7.4 g/dL (14.0-18.0); LYMPHOCYTES # (AUTO) 0.5 10^3/uL (1.5-3.5); LYMPHOCYTES % (AUTO) 11.5 %; MEAN CORPUSCULAR HGB CONC 30.3 g/dL (32.0-36.0); MEAN CORPUSCULAR VOLUME 95.7 fL (80.0-94.0); MEAN PLATELET VOLUME 10.4 fL (7.4-11.4); MONOCYTES # (AUTO) 0.5 10^3/uL (0.0-1.0); MONOCYTES % (AUTO) 11.7 %; NEUTROPHILS % (AUTO) 74.8 %; PLT - PLATELET COUNT 197 10^3/uL (130-450); RED BLOOD COUNT 2.55 10^6/uL (4.70-6.10); RED CELL DISTRIBUTION WIDTH 17.1 % (12.0-15.0)
--- NOTE | 2021-04-19 09:20 | XRAY Report ---
PROCEDURE: Chest 1 View X-Ray INDICATIONS: Acute shortness of breath TECHNIQUE: One view of the chest was acquired. COMPARISON: 09/08/2020 CT chest FINDINGS: Median sternotomy changes and left chest wall cardiac pacing device. Unchanged cardiomegaly. Moderate sized right pleural effusion with overlying passive atelectasis. Increased interstitial markings in both lungs with patchy airspace opacity in the central perihilar r egions and right lung base. Cephalization of pulmonary vessels. IMPRESSION: Cardiomegaly with findings of moderate pulmonary edema and a presumably related small right pleural e ffusion. Passive atelectasis of the right lower lobe due to the pleural effusion, with superimposed consolidat ion not excluded. Overall findings are similar to the comparison CT from August 2020. Reviewed by: Weston Angulo MD on 04/19/2021 9:19 AM PDT Approved by: Weston Angulo MD on 04/19/2021 9:19 AM PDT Station ID: [id number]
--- NOTE | 2021-04-19 10:44 | PHARMACY PROGRESS NOTE ---
- Best Possible Medication History Admit Date and Time: 04/18/211957 Processed by: Pharmacy Medication History completed: Yes Secondary Source(s): Physician records, Pharmacy records, Insurance records Medication list updated using patient's pharmacy and insurance records along with information from [facility], including recent PCP visit. As the person ultimately responsible for medication therapy, providers are able to order a medication from an existing home medication list in [facility] via the "Reconcile Routine" prior to Confirmation of that medication by microcomputer support specialist. Such practice is discouraged except when the physician, in their clinical judgment, deems that a medical need exists for a medication without regard to previous use.
[2021-04-19 13:38] LABS: BASOPHILS % (AUTO) 0.8 %; EOSINOPHILS % (AUTO) 0.8 %; HCT - HEMATOCRIT 23.5 % (42.0-52.0); HGB - HEMOGLOBIN 7.4 g/dL (14.0-18.0); LYMPHOCYTES # (AUTO) 0.3 10^3/uL (1.5-3.5); LYMPHOCYTES % (AUTO) 7.8 %; MEAN CORPUSCULAR HGB CONC 31.5 g/dL (32.0-36.0); MEAN CORPUSCULAR VOLUME 95.1 fL (80.0-94.0); MONOCYTES # (AUTO) 0.5 10^3/uL (0.0-1.0); MONOCYTES % (AUTO) 12.4 %; NEUTROPHILS # (AUTO) 2.9 10^3/uL (1.5-6.6); NEUTROPHILS % (AUTO) 77.7 %; PLT - PLATELET COUNT 189 10^3/uL (130-450); RED BLOOD COUNT 2.47 10^6/uL (4.70-6.10); RED CELL DISTRIBUTION WIDTH 17.1 % (12.0-15.0); WHITE BLOOD COUNT 3.7 x10^3/uL (4.8-10.8)
--- NOTE | 2021-04-19 13:52 | PROVIDER PROGRESS NOTE ---
Assessment/Plan - Problem List (1) GI bleed Assessment/Plan: pt report his stool is dark but pt also took iron pill. pt has a history of GI pathology including Blue's, esophageal ulcer. Pt had HGB 6.4 at the admission. Patient also take Xarelto for his atrial fibrillation. Patient did report he take Xarelto on yesterday morning. Patient also report he lost 20 pounds in recently, patient has a history of bladder cancer. Because of recently taking Xarelto, general surgeon will hold on today for the EGD and colonoscopy, plan tomorrow morning to do EGD and colonoscopy for pt. Patient already had bow el repair, we will keep patient on clear liquid diet, NPO After midnight. Continue intravenous PPI. Continue hemoglobin monitor. Patient had 1 units of blood transfusion in the hospital. We will continue home iron pill. Continue pathology laboratory director. (2) Dyspnea on exertion Patient has a history of pulmonary hypertension with RVSP 51mmHg In the previous echo study with hx of valvular heart disease, chronic anemia. chest x-ray show patient had moderate pulmonary edema. At the same time patient's creatinine increases to 2.6 at the admission from previous 2.3. We will hold intravenous IV fluids, Hold PO Torsemide in his home medication list now. Continue follow-up with his dip tanker as outpatient (3) Chronic kidney disease, stage IV (severe) patient's creatinine increases to 2.6 at the admission from previous 2.3. but chest x-ray show patient had moderate pulmonary edema. pt has hx of SOB Hold home Torsemide medication, hold intravenous IV fluids, Continue to avoid nephrotoxic agents Retroperitoneal ultrasound is pending. Continue laboratory monitoring (4) Pulmonary hypertension Conclusion/Plan: Patient has a history of pulmonary hypertension with RVSP 51mmHg In the previous echo study. pt was Followed closely by his dip tanker. His exam indicates that right-sided heart failure may be slightly worse than usual with his leg edema, shortness of breath. hold IVF, hold torsemide now, vital sign and lab monitor closely. (5) Do not resuscitate status Conclusion/Plan: He wants to note this in the chart. - Current Meds Current Meds: Current Medications Generic Name Dose Route Start Last Admin Trade Name Freq PRN Reason Stop Dose Admin Pantoprazole Sodium 40 mg 04/18/21 21:00 04/19/21 08:19 Pantoprazole 40 Mg Vial IVP 40 mg BID FLORES Administration Sodium Chloride 10 ml 04/19/21 01:00 04/19/21 08:19 Sodium Chloride Flush 0.9% 10 Ml Syringe IVP 10 ml 0100,0900,1700 FLORES Administration - Lab Result Fish Bone Diagrams: 04/19/21 13:33 04/19/21 04:28 - Additional Planning My Orders: My Active Orders 04/19/21 Lunch Clear Liquid Diet [DIET] 04/19/21 21:00 Simvastatin [Simvastatin] 20 mg ORAL QPM Tamsulosin [Flomax] 0.4 mg PO BID 04/20/21 00:01 NPO except Meds [DIET] 04/20/21 05:00 BMP - BASIC METABOLIC PANEL [CHEM] DAILYLAB 04/20/21 09:00 Ferrous Sulfate [Ferrous Sulfate] 1 tab PO DAILY Metoprolol Succinate [Toprol Xl] 25 mg PO DAILY 04/21/21 05:00 BMP - BASIC METABOLIC PANEL [CHEM] DAILYLAB 04/22/21 05:00 BMP - BASIC METABOLIC PANEL [CHEM] DAILYLAB 04/23/21 05:00 BMP - BASIC METABOLIC PANEL [CHEM] DAILYLAB Subjective - Subjective Patient Reports: Feeling Better Objective Vital Signs: Vital Signs - 24 hr 04/18/21 04/18/21 04/18/21 19:01 19:28 20:40 Temperature 36.4 C L 36.6 C Heart Rate 74 74 Heart Rate [ 70 Brachial] Respiratory 14 21 24 Rate Blood Pressure 96/43 L 99/59 L Blood Pressure [Left Brachial artery] Blood Pressure 92/56 L [Right Brachial artery] O2 Saturation 100 100 100 04/18/21 04/18/21 04/18/21 22:36 22:41 22:56 Temperature 36.6 C 36.6 C 36.9 C Heart Rate 70 69 Heart Rate [ 70 Brachial] Respiratory 20 18 18 Rate Blood Pressure 105/58 L 116/67 Blood Pressure 105/58 L [Left Brachial artery] Blood Pressure [Right Brachial artery] O2 Saturation 98 04/19/21 04/19/21 04/19/21 02:02 04:57 07:55 Temperature 36.4 C L 36.8 C 36.7 C Heart Rate 70 Heart Rate [ 67 70 Brachial] Respiratory 18 18 16 Rate Blood Pressure 116/61 Blood Pressure 117/68 [Left Brachial artery] Blood Pressure 122/53 L [Right Brachial artery] O2 Saturation 99 100 04/19/21 04/19/21 08:59 12:03 Temperature 36.7 C 36.8 C Heart Rate 70 Heart Rate [ 72 Brachial] Respiratory 16 24 Rate Blood Pressure Blood Pressure 125/60 [Left Brachial artery] Blood Pressure [Right Brachial artery] O2 Saturation 100 100 Oxygen O2 Source Room air I&O (Last 24 Hrs): Intake and Output Totals x24h 04/17/21 04/18/21 04/19/21 23:59 23:59 23:59 Intake Total 300 1906 Output Total 20 Balance 280 1906 General: Alert, Oriented x3, Cooperative, No acute distress HEENT: Atraumatic Neck: Supple Lymphatic: no adenopathy Neuro: Alert, Non Focal, Oriented Times 3 Cardiovascular: Regular rate, Normal S1, Normal S2 Respiratory: Chest non-tender, No respiratory distress Abdomen: Normal bowel sounds, Soft, No tenderness Extremities: Normal pulses - Results Results: Laboratory Results WBC 3.7 x10^3/uL (4.8-10.8) L 04/19/21 13:33 RBC 2.47 10^6/uL (4.70-6.10) L 04/19/21 13:33 Hgb 7.4 g/dL (14.0-18.0) L 04/19/21 13:33 Hct 23.5 % (42.0-52.0) L 04/19/21 13:33 MCV 95.1 fL (80.0-94.0) H 04/19/21 13:33 MCH 30.0 pg (27.0-31.0) 04/19/21 13:33 MCHC 31.5 g/dL (32.0-36.0) L 04/19/21 13:33 RDW 17.1 % (12.0-15.0) H 04/19/21 13:33 Plt Count 189 10^3/uL (130-450) 04/19/21 13:33 MPV 10.0 fL (7.4-11.4) 04/19/21 13:33 Neut # (Auto) 2.9 10^3/uL (1.5-6.6) 04/19/21 13:33 Lymph # (Auto) 0.3 10^3/uL (1.5-3.5) L 04/19/21 13:33 [place] # (Auto) 0.5 10^3/uL (0.0-1.0) 04/19/21 13:33 Eos # (Auto) 0.0 10^3/uL (0.0-0.7) 04/19/21 13:33 Baso # (Auto) 0.0 10^3/uL (0.0-0.1) 04/19/21 13:33 Absolute Nucleated RBC 0.00 x10^3/uL 04/19/21 13:33 Nucleated RBC % 0.0 /100WBC 04/19/21 13:33 PT 24.2 secs (9.9-12.6) H 04/18/21 19:38 INR 2.3 (0.8-1.2) H 04/18/21 19:38 APTT 37.0 secs (24.9-33.3) H 04/18/21 19:38 Sodium 145 mmol/L (135-145) 04/19/21 04:28 Potassium 4.7 mmol/L (3.5-5.0) 04/19/21 04:28 Chloride 105 mmol/L (101-111) 04/19/21 04:28 Carbon Dioxide 28 mmol/L (21-32) 04/19/21 04:28 Anion Gap 12.0 (6-13) 04/19/21 04:28 BUN 39 mg/dL (6-20) H 04/19/21 04:28 Creatinine 2.6 mg/dL (0.6-1.2) H 04/19/21 04:28 Estimated GFR (MDRD) 24 (>89) L 04/19/21 04:28 Glucose 114 mg/dL (70-100) H 04/19/21 04:28 Calcium 9.1 mg/dL (8.5-10.3) 04/19/21 04:28 Total Bilirubin 0.9 mg/dL (0.2-1.0) 04/18/21 19:38 AST 23 IU/L (10-42) 04/18/21 19:38 ALT 14 IU/L (10-60) 04/18/21 19:38 Alkaline Phosphatase 123 IU/L (42-121) H 04/18/21 19:38 Total Protein 6.6 g/dL (6.7-8.2) L 04/18/21 19:38 Albumin 3.6 g/dL (3.2-5.5) 04/18/21 19:38 Globulin 3.0 g/dL (2.1-4.2) 04/18/21 19:38 Albumin/Globulin Ratio 1.2 (1.0-2.2) 04/18/21 19:38 Lipase 42 U/L (22-51) 04/18/21 19:38 Urine Color YELLOW 04/18/21 20:45 Urine Clarity CLEAR (CLEAR) 04/18/21 20:45 Urine pH 6.0 PH (5.0-7.5) 04/18/21 20:45 Ur Specific [place] 1.015 (1.002-1.030) 04/18/21 20:45 Urine Protein NEGATIVE mg/dL (NEGATIVE) 04/18/21 20:45 Urine Glucose (UA) NEGATIVE mg/dL (NEGATIVE) 04/18/21 20:45 Urine Ketones NEGATIVE mg/dL (NEGATIVE) 04/18/21 20:45 Urine Occult Blood NEGATIVE (NEGATIVE) 04/18/21 20:45 Urine Nitrite NEGATIVE (NEGATIVE) 04/18/21 20:45 Urine Bilirubin NEGATIVE (NEGATIVE) 04/18/21 20:45 Urine Urobilinogen 0.2 (NORMAL) E.U./dL (NORMAL) 04/18/21 20:45 Ur Leukocyte Esterase NEGATIVE (NEGATIVE) 04/18/21 20:45 Ur Microscopic Review NOT INDICATED 04/18/21 20:45 Urine Culture Comments NOT INDICATED 04/18/21 20:45 Nasal Adenovirus (PCR) NOT DETECTED 04/18/21 19:55 Nasal B. parapertussis DNA (PCR) NOT DETECTED 04/18/21 19:55 Nasal Coronavir 229E PCR NOT DETECTED 04/18/21 19:55 Nasal Coronavir HKU1 PCR NOT DETECTED 04/18/21 19:55 Nasal Coronavir NL63 PCR NOT DETECTED 04/18/21 19:55 Nasal Coronavir OC43 PCR NOT DETECTED 04/18/21 19:55 Nasal Enterovir/Rhinovir PCR NOT DETECTED 04/18/21 19:55 Nasal Influenza B PCR NOT DETECTED 04/18/21 19:55 Nasal Influenza A PCR NOT DETECTED 04/18/21 19:55 Nasal Parainfluen 1 PCR NOT DETECTED 04/18/21 19:55 Nasal Parainfluen 2 PCR NOT DETECTED 04/18/21 19:55 Nasal Parainfluen 3 PCR NOT DETECTED 04/18/21 19:55 Nasal Parainfluen 4 PCR NOT DETECTED 04/18/21 19:55 Nasal RSV (PCR) NOT DETECTED 04/18/21 19:55 Nasal B.pertussis DNA PCR NOT DETECTED 04/18/21 19:55 Nasal C.pneumoniae (PCR) NOT DETECTED 04/18/21 19:55 Valeriy Human Metapneumo PCR NOT DETECTED 04/18/21 19:55 Nasal M.pneumoniae (PCR) NOT DETECTED 04/18/21 19:55 Nasal SARS-CoV-2 (PCR) NOT DETECTED 04/18/21 19:55 Blood Type B POSITIVE 04/18/21 19:38 Blood Type Recheck B POSITIVE 04/18/21 19:58 Antibody Screen NEGATIVE 04/18/21 19:38 Crossmatch IS Only See Detail 04/18/21 19:38 - Procedures Procedures: Procedures EXCISION OF ASCENDING COLON, ENDO (08/15/16) EXCISION OF DUODENUM, ENDO, DIAGN (01/15/18) EXCISION OF ESOPHAGUS, ENDO, DIAGN (01/15/18) INSPECTION OF LOWER INTESTINAL TRACT, ENDO (08/27/18) ABX Reporting Has patient been on IV antibiotics over the past 48 hours?: No Current Medications - Current Medications Current Medications: Active Medications Atorvastatin Calcium (Atorvastatin 10 Mg Tablet) 10 mg PO QPM [facility] Ferrous Sulfate (Ferrous Sulfate 325 Mg Tablet) 325 mg PO DAILYWM [facility] Metoprolol Succinate (Metoprolol Succinate 25 Mg Tablet) 25 mg PO DAILY [facility] Morphine Sulfate (Morphine 2 Mg/Ml Carpuject) 2 mg IVP Q2HR PRN PRN Reason: Pain 8 to 10 Ondansetron HCl (Ondansetron Odt 4 Mg Tablet) 4 mg TL Q6HR PRN PRN Reason: Nausea / Vomiting Ondansetron HCl (Ondansetron 4 Mg/2 Ml Vial) 4 mg IVP Q6HR PRN PRN Reason: Nausea / Vomiting Pantoprazole Sodium (Pantoprazole 40 Mg Vial) 40 mg IVP BID [facility] Last Admin: 04/19/21 08:19 Dose: 40 mg Documented by: Sodium Chloride (Sodium Chloride Flush 0.9% 10 Ml Syringe) 10 ml IVP PRN PRN PRN Reason: NEEDED PER PROVIDER ORDERS Sodium Chloride (Sodium Chloride Flush 0.9% 10 Ml Syringe) 10 ml IVP 0100,0900,1700 [facility] Last Admin: 04/19/21 08:19 Dose: 10 ml Documented by: Tamsulosin HCl (Tamsulosin 0.4 Mg Capsule) 0.4 mg PO BID [facility] Metoprolol Succinate [Toprol Xl] 25 mg ORAL DAILY 08/15/16 Simvastatin 20 mg ORAL QPM 08/15/16 Ferrous Sulfate 1 tab PO DAILY 01/14/18 Losartan Potassium 12.5 mg PO DAILY 01/14/18 Pantoprazole [Protonix] 40 mg PO DAILY 01/14/18 Umeclidinium Brm/Vilanterol Tr [Anoro Ellipta 62.5-25 Mcg INH] 1 puffs INH DAILY 01/14/18 Rivaroxaban [Xarelto] 15 mg PO DAILY 04/19/21 Tamsulosin [Flomax] 0.4 mg PO BID 04/19/21 Torsemide 40 mg PO DAILY 04/19/21 allopurinoL [Zyloprim] 100 mg PO DAILY 04/19/21
[2021-04-19] MEDS ORDERED: IOVERSOL 320 100 ML VIAL IVP ONE (18:32)
[2021-04-19 19:35] LABS: BASOPHILS % (AUTO) 0.7 %; EOSINOPHILS # (AUTO) 0.1 10^3/uL (0.0-0.7); EOSINOPHILS % (AUTO) 1.1 %; HCT - HEMATOCRIT 24.1 % (42.0-52.0); HGB - HEMOGLOBIN 7.6 g/dL (14.0-18.0); LYMPHOCYTES # (AUTO) 0.5 10^3/uL (1.5-3.5); LYMPHOCYTES % (AUTO) 11.2 %; MEAN CORPUSCULAR HGB CONC 31.5 g/dL (32.0-36.0); MEAN CORPUSCULAR VOLUME 95.3 fL (80.0-94.0); MONOCYTES # (AUTO) 0.6 10^3/uL (0.0-1.0); MONOCYTES % (AUTO) 13.1 %; NEUTROPHILS # (AUTO) 3.4 10^3/uL (1.5-6.6); NEUTROPHILS % (AUTO) 73.7 %; PLT - PLATELET COUNT 196 10^3/uL (130-450); RED BLOOD COUNT 2.53 10^6/uL (4.70-6.10); RED CELL DISTRIBUTION WIDTH 17.2 % (12.0-15.0); WHITE BLOOD COUNT 4.6 x10^3/uL (4.8-10.8)
[2021-04-19] MEDS: ATORVASTATIN 10 MG TABLET PO SCH (20:58)
[2021-04-19] MEDS: TAMSULOSIN 0.4 MG CAPSULE PO SCH (20:58)
[2021-04-20] MEDS: SODIUM CHLORIDE FLUSH 0.9% 10 ML SYRINGE IVP SCH ×3 (00:45→17:20)
[2021-04-20 05:18] LABS: CALCIUM 8.6 mg/dL (8.5-10.3); CREATININE 2.2 mg/dL (0.6-1.2); POTASSIUM 3.6 mmol/L (3.5-5.0)
--- NOTE | 2021-04-20 07:35 | ANESTHESIA ---
Pre-Anesthesia VS, & Labs - Diagnosis anemia - Procedure colonoscopy and EGD Vital Signs: Temp Pulse Resp BP Pulse Ox 36.7 C 70 20 108/65 95 04/20/21 07:30 04/20/21 07:30 04/20/21 07:30 04/20/21 07:30 04/20/21 07:30 Height: 5 ft 8 in Weight (kg): 72 kg Body Mass Index: 24.1 BMI Classification: Healthy weight - NPO >8 hours - Lab Results Current Lab Results: Laboratory Tests 04/20/21 04:25: Sodium 144, Potassium 3.6, Chloride 107, Carbon Dioxide 27, Anion Gap 10.0, BUN 31 H, Creatinine 2.2 H, Estimated GFR (MDRD) 29 L, Glucose 109 H, Calcium 8.6 04/19/21 19:29: WBC 4.6 L, RBC 2.53 L, Hgb 7.6 L, Hct 24.1 L, MCV 95.3 H, MCH 30.0, MCHC 31.5 L, RDW 17.2 H, Plt Count 196, MPV 10.0, Neut # (Auto) 3.4, Lymph # (Auto) 0.5 L, [place] # (Auto) 0.6, Eos # (Auto) 0.1, Baso # (Auto) 0.0, Absolute Nucleated RBC 0.00, Nucleated RBC % 0.0 04/19/21 13:33: WBC 3.7 L, RBC 2.47 L, Hgb 7.4 L, Hct 23.5 L, MCV 95.1 H, MCH 30.0, MCHC 31.5 L, RDW 17.1 H, Plt Count 189, MPV 10.0, Neut # (Auto) 2.9, Lymph # (Auto) 0.3 L, [place] # (Auto) 0.5, Eos # (Auto) 0.0, Baso # (Auto) 0.0, Absolute Nucleated RBC 0.00, Nucleated RBC % 0.0 04/19/21 08:28: WBC 4.0 L, RBC 2.55 L, Hgb 7.4 L, Hct 24.4 L, MCV 95.7 H, MCH 29.0, MCHC 30.3 L, RDW 17.1 H, Plt Count 197, MPV 10.4, Neut # (Auto) 3.0, Lymph # (Auto) 0.5 L, [place] # (Auto) 0.5, Eos # (Auto) 0.0, Baso # (Auto) 0.0, Absolute Nucleated RBC 0.00, Nucleated RBC % 0.0 04/19/21 04:28: Sodium 145, Potassium 4.7, Chloride 105, Carbon Dioxide 28, Anion Gap 12.0, BUN 39 H, Creatinine 2.6 H, Estimated GFR (MDRD) 24 L, Glucose 114 H, Calcium 9.1 04/19/21 02:34: WBC 4.2 L, RBC 2.59 L, Hgb 7.6 L, Hct 24.5 L, MCV 94.6 H, MCH 29.3, MCHC 31.0 L, RDW 17.0 H, Plt Count 197, MPV 10.0, Neut # (Auto) 3.1, Lymph # (Auto) 0.5 L, [place] # (Auto) 0.5, Eos # (Auto) 0.1, Baso # (Auto) 0.0, Absolute Nucleated RBC 0.00, Nucleated RBC % 0.0 04/18/21 19:58: Blood Type Recheck B POSITIVE 04/18/21 19:38: PT 24.2 H, INR 2.3 H, APTT 37.0 H 04/18/21 19:38: Blood Type B POSITIVE, Antibody Screen NEGATIVE, Crossmatch IS Only See Detail 04/18/21 19:38: Sodium 137, Potassium 3.5, Chloride 99 L, Carbon Dioxide 24, Anion Gap 14.0 H, BUN 39 H, Creatinine 2.6 H, Estimated GFR (MDRD) 24 L, Glucose 112 H, Calcium 8.5, Total Bilirubin 0.9, AST 23, ALT 14, Alkaline Phosphatase 123 H, Total Protein 6.6 L, Albumin 3.6, Globulin 3.0, Albumin/Globulin Ratio 1.2, Lipase 42 04/18/21 19:38: WBC 4.4 L, RBC 2.15 L, Hgb 6.4 L*, Hct 20.4 L, MCV 94.9 H, MCH 29.8, MCHC 31.4 L, RDW 17.6 H, Plt Count 197, MPV 9.9, Neut # (Auto) 3.3, Lymph # (Auto) 0.5 L, [place] # (Auto) 0.4, Eos # (Auto) 0.1, Baso # (Auto) 0.0, Absolute Nucleated RBC 0.00, Nucleated RBC % 0.0 Lab results reviewed: Yes Fish Bones: 04/19/21 19:29 04/20/21 04:25 Home Medications and Allergies Home Medications: Ambulatory Orders Rivaroxaban [Xarelto] 15 mg PO DAILY 04/19/21 Tamsulosin [Flomax] 0.4 mg PO BID 04/19/21 Torsemide 40 mg PO DAILY 04/19/21 allopurinoL [Zyloprim] 100 mg PO DAILY 04/19/21 Active Medications Atorvastatin Calcium (Atorvastatin 10 Mg Tablet) 10 mg PO QPM [facility] Last Admin: 04/19/21 20:58 Dose: 10 mg Documented by: Ferrous Sulfate (Ferrous Sulfate 325 Mg Tablet) 325 mg PO DAILYWM [facility] Metoprolol Succinate (Metoprolol Succinate 25 Mg Tablet) 25 mg PO DAILY [facility] Morphine Sulfate (Morphine 2 Mg/Ml Carpuject) 2 mg IVP Q2HR PRN PRN Reason: Pain 8 to 10 Ondansetron HCl (Ondansetron Odt 4 Mg Tablet) 4 mg TL Q6HR PRN PRN Reason: Nausea / Vomiting Ondansetron HCl (Ondansetron 4 Mg/2 Ml Vial) 4 mg IVP Q6HR PRN PRN Reason: Nausea / Vomiting Pantoprazole Sodium (Pantoprazole 40 Mg Vial) 40 mg IVP BID [facility] Last Admin: 04/19/21 20:58 Dose: 40 mg Documented by: Sodium Chloride (Sodium Chloride Flush 0.9% 10 Ml Syringe) 10 ml IVP PRN PRN PRN Reason: NEEDED PER PROVIDER ORDERS Sodium Chloride (Sodium Chloride Flush 0.9% 10 Ml Syringe) 10 ml IVP 0100,0900,1700 [facility] Last Admin: 04/20/21 00:45 Dose: 10 ml Documented by: Tamsulosin HCl (Tamsulosin 0.4 Mg Capsule) 0.4 mg PO BID [facility] Last Admin: 04/19/21 20:58 Dose: 0.4 mg Documented by: Metoprolol Succinate [Toprol Xl] 25 mg ORAL DAILY 08/15/16 Simvastatin 20 mg ORAL QPM 08/15/16 Ferrous Sulfate 1 tab PO DAILY 01/14/18 Losartan Potassium 12.5 mg PO DAILY 01/14/18 Pantoprazole [Protonix] 40 mg PO DAILY 01/14/18 Umeclidinium Brm/Vilanterol Tr [Anoro Ellipta 62.5-25 Mcg INH] 1 puffs INH DAILY 01/14/18 Rivaroxaban [Xarelto] 15 mg PO DAILY 04/19/21 Tamsulosin [Flomax] 0.4 mg PO BID 04/19/21 Torsemide 40 mg PO DAILY 04/19/21 allopurinoL [Zyloprim] 100 mg PO DAILY 04/19/21 Allergies/Adverse Reactions: Allergies Allergy/AdvReac Type Severity Reaction Status Date / Time Iodine and Iodide Containing Allergy Rash Verified 04/18/21 19:03 Produc tizanidine AdvReac syncope Verified 04/18/21 19:03 Anes History & Medical History - Anesthetic History Anesthesia Complications: reports: No previous complications - Medical History Cardiovascular: reports: Hypertension, High cholesterol, Coronary artery disease, Atrial fibrillation (cadioversions, ablation 02/2010 & 08/2013, pacer 08/2013), Murmur (Mod/severe TR, MR, MS), Valve disorder (Mod to sev TR, s/p MVR 12/2007), Other (Pulmonary HTN. 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) Gastrointestinal: reports: GERD, Ulcers (esophagus due to pill), Colon polyps Urinary: reports: Benign prostate hypertrophy, Retention (with VATS), Other (19 94 Bladder ca, Grade II/III, TCC, WADE, s/p BCG) Neuro: reports: Migraines Musculoskeletal: reports: Osteoarthritis (L and C spine, Knees), Gout Endocrine/Autoimmune: reports: None Blood Disorders: reports: Anemia Skin: reports: None, Other Smoking Status: Former smoker Psychosocial: reports: No issues indicated History of Cancer?: Yes (skin) - Surgical History General: reports: Colonoscopy (01/2002, 09/2016, 08/2018, 10/2018), EGD (01/2018, 09/2020), Other (inguinal hernia repair) Eyes Ears Nose Throat (EENT): reports: Cataracts (08/2006, 07/2008), Other (laser surgery eyes 11/2014) Cardiothoracic: reports: Valve replacement, Pacemaker, Cardiac catheterization, Other Orthopedic: reports: Other Dermatologic: reports: Skin cancer surgery (SCCA jaw 11/1996, BCCa 08/2008, 02/2011, 05/2013) Results - Echo Results Echo Results: Report reviewed Exam General: Alert, Oriented x3, Cooperative, No acute distress Dental: Poor dentition Mouth Openin Fingerbreadth Neck Mobility: Normal Mallampati classification: III Thyromental Distance: 4-6 cm Mental/Cognitive Status: Alert/Oriented X3, Normal for patient Plan Anesthesia Type: Total IV Consent for Procedure(s) Verified and Reviewed: Yes Code Status: Attempt Resuscitation ASA classification: 3-Severe systemic disease Is this case an emergency?: No
[2021-04-20 08:00] LABS: BASOPHILS % (AUTO) 0.7 %; EOSINOPHILS # (AUTO) 0.1 10^3/uL (0.0-0.7); EOSINOPHILS % (AUTO) 1.7 %; LYMPHOCYTES # (AUTO) 0.4 10^3/uL (1.5-3.5); LYMPHOCYTES % (AUTO) 9.4 %; MEAN CORPUSCULAR HEMOGLOBIN 29.9 pg (27.0-31.0); MEAN CORPUSCULAR HGB CONC 31.4 g/dL (32.0-36.0); MEAN CORPUSCULAR VOLUME 95.2 fL (80.0-94.0); MEAN PLATELET VOLUME 11.3 fL (7.4-11.4); MONOCYTES # (AUTO) 0.6 10^3/uL (0.0-1.0); MONOCYTES % (AUTO) 13.6 %; NEUTROPHILS % (AUTO) 74.1 %; PLT - PLATELET COUNT 184 10^3/uL (130-450); RED BLOOD COUNT 2.31 10^6/uL (4.70-6.10); RED CELL DISTRIBUTION WIDTH 17.2 % (12.0-15.0); WHITE BLOOD COUNT 4.1 x10^3/uL (4.8-10.8)
[2021-04-20 08:05] LABS: HGB - HEMOGLOBIN 6.9 g/dL (14.0-18.0)
[2021-04-20] MEDS ORDERED: fentaNYL 100 MCG/2 ML VIAL ONE (08:11)
[2021-04-20] MEDS ORDERED: KETAMINE 500 MG/10 ML VIAL ONE (08:11)
[2021-04-20] MEDS ORDERED: PROPOFOL 200 MG/20 ML VIAL IVP ONE (08:11)
[2021-04-20] MEDS ORDERED: SODIUM CHLORIDE FLUSH 0.9% 10 ML SYRINGE IVP ONE (08:14)
--- NOTE | 2021-04-20 08:15 | SURGERY HX AND PHYSICAL(T) ---
Surgical History & Physical - Chief Complaint/HPI Chief Complaint: Gastrointestinal bleed History of Present Illness: 85-year-old male presenting for gastrointestinal bleed. Hematochezia, lethargy, general malaise. History of systemic anticoagulation. No significant family history. Notable past surgical history to include bladder intervention cystoscopically. Patient reports change in bowel function, reports bleeding per rectum, and also denies reflux associated symptoms. Patient is also have significant weight loss. Patient does not use tobacco. Patient has a history of alcohol use but denies any associated abuse. Positive history of heart attack or stroke. Patient takes systemic anticoagulation. Endoscopic history includes prior colonoscopy. - PMH/PSH/Social Hx Does the pt have a hx of MRSA?: No Neurological History: Migraines Eyes, Ears, Nose, Throat: Chronic hearing loss Cardiovascular: Hypertension, High cholesterol, Coronary artery disease, Atrial fibrillation (cadioversions, ablation 02/2010 & 08/2013, pacer 08/2013), Murmur (Mod/severe TR, MR, MS), Valve disorder (Mod to sev TR, s/p MVR 12/2007), Other (Pulmonary HTN. 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) Skin: None, Other Endocrine/Autoimmune: None Gastrointestinal: GERD, Ulcers (esophagus due to pill), Colon polyps Urinary: Benign prostate hypertrophy, Retention (with VATS), Other (1994 Bladder ca, Grade II/III, TCC, WADE, s/p BCG) Musculoskeletal: Osteoarthritis (L and C spine, Knees), Gout Blood Disorders: Anemia Psychiatric: None General: Colonoscopy (01/2002, 09/2016, 08/2018, 10/2018), EGD (01/2018, 09/2020), Other (inguinal hernia repair) Orthopedic: Other Cardiothoracic: Valve replacement, Pacemaker, Cardiac catheterization, Other Eyes Ears Nose Throat (EENT): Cataracts (08/2006, 07/2008), Other (laser surgery eyes 11/2014) Dermatologic: Skin cancer surgery (SCCA jaw 11/1996, BCCa 08/2008, 02/2011, 05/2013) Smoking Status: Former smoker Does the pt have substance abuse?: No - Home Meds and Allergies Home Medications: Metoprolol Succinate [Toprol Xl] 25 mg ORAL DAILY 08/15/16 Simvastatin 20 mg ORAL QPM 08/15/16 Ferrous Sulfate 1 tab PO DAILY 01/14/18 Losartan Potassium 12.5 mg PO DAILY 01/14/18 Pantoprazole [Protonix] 40 mg PO DAILY 01/14/18 Umeclidinium Brm/Vilanterol Tr [Anoro Ellipta 62.5-25 Mcg INH] 1 puffs INH DAILY 01/14/18 Rivaroxaban [Xarelto] 15 mg PO DAILY 04/19/21 Tamsulosin [Flomax] 0.4 mg PO BID 04/19/21 Torsemide 40 mg PO DAILY 04/19/21 allopurinoL [Zyloprim] 100 mg PO DAILY 04/19/21 Allergies/Adverse Reactions: Allergies Allergy/AdvReac Type Severity Reaction Status Date / Time Iodine and Iodide Containing Allergy Rash Verified 04/18/21 19:03 Produc tizanidine AdvReac syncope Verified 04/18/21 19:03 - Review of Systems Constitutional: Fatigue, Malaise Gastrointestinal: Melena, Hematochechezia - Vital Signs Heart Rate: 70 Blood Pressure: 116/61 Temperature: 36.7 C Respiratory Rate: 20 O2 Saturation: 95 Weight (kg): 72 kg Height: 1.73 m - Physical Exam Comments/Other: General Appearance: positive: No acute distress Eyes Bilateral: positive: Normal inspection ENT: positive: ENT inspection nml Neck: positive: Nml inspection Respiratory: positive: Chest non-tender, No respiratory distress, Breath sounds nml. negative: Wheezes, Rales, Rhonchi Cardiovascular: positive: Regular rate & rhythm Abdomen: positive: No distention, Other. negative: Guarding, Rebound Extremities: positive: Non-tender, Full ROM, Nml appearance Neurologic/Psychiatric: positive: Oriented x3, CN's nml (2-12) - Patient Review Patient Review: Problems were reviewed with the patient during this visit. Medications were reviewed with the patient during this visit. Allergies were reviewed this patient during this visit. Pertinent Tests Reviewed: All pertitent test for this patient were reviewed. - Assessment & Plan Assessment and Plan: 85-year-old male with atrial fibrillation as well as coronary artery disease and systemic anticoagulation presents with acute on chronic blood loss anemia requiring aggressive resuscitation with multiple packed red blood cell transfusions. Patient last took systemic anticoagulation the day prior to presentation. He has had significant weight loss as well. In the setting of gastrointestinal bleed with associated hematochezia and melena he is indicated for upper and lower endoscopy. Risk and benefits discussed questions answered informed consent obtained. 1. Care per hospitalist service 2. Trend H&H and transfuse appropriately given the patient's history of cardiac disease 3. Telemetry and close hemodynamic monitoring 4. Plan upper endoscopy to evaluate source, which is most likely given the patient's presenting uremia. Will proceed with colonoscopy as well. 5. Aggressive resuscitation 6. As is always the case, diagnostic endoscopy with potential for therapeutic interventions. Given limitations, surgical interventions and/or transfer for advanced gastrointestinal interventions and/or interventional radiographic interventions remain part of this complex algorithm. 7. Bowel rest and bowel prep in anticipation of colonoscopy 8. PPI infusion and consider Carafate pending results
--- NOTE | 2021-04-20 08:54 | Ultrasound Report ---
PROCEDURE: Retroperitoneal INDICATIONS: NGUYỄN w hx of BPH TECHNIQUE: Real-time scanning was performed of the retroperitoneal organs, with image documentation. COMPARISON: Prior chest CT 09/08/2020. FINDINGS: Kidneys: Kidneys are normal in size. Right kidney measures 10.9 cm long; left kidney measures 9.9 c m long. Right renal cortical thickness is 1.0 cm; left renal cortical thickness is 1.0 cm. No solid masses, hydronephrosis, or nephrolithiasis. There is a relatively prominent column of Juancarlos seen a t the right kidney. A similar pattern is seen on the left. A small nonobstructive shadowing renal too culus or vascular calcification is seen at the left mid kidney, and there is a peripelvic cyst measur ing up to 1.3 x 1.6 cm at the renal sinus on the left. Pancreas: Visualized portions of the pancreas are sonographically normal. Aorta: Visualized aorta is normal in caliber at 3 cm or less. Iliac arteries: Proximal common iliac arteries are normal in caliber at 2.5 cm or less. IVC: Intrahepatic inferior vena cava is patent. Miscellaneous: No free abdominal fluid. Prevoid bladder volume is 103 cc, postvoid residual is mild at 85 cc. The prostate is mildly enlarged, measuring up to 4.3 x 4.3 x 5.0 cm. There is a slight sabrina unt of ascites within the peritoneal space and incidental note is made of hyperechoic liver echotextu re consistent with fatty infiltration. IMPRESSION: Fatty infiltration within the liver-hepatic steatosis with a slight amount of ascites. No urinary tract obstruction is seen. Normal bladder function. Small collecting system calculus or ar terial calcification at the left mid kidney, nonobstructive. Reviewed by: Jessee Cabrales MD on 04/20/2021 8:53 AM PDT Approved by: Jessee Cabrales MD on 04/20/2021 8:53 AM PDT Station ID: [id number]
[2021-04-20] MEDS ORDERED: METOPROLOL SUCCINATE 25 MG TABLET PO SCH ×2 (09:00→09:26)
--- NOTE | 2021-04-20 09:22 | ANESTHESIA POST OP EVALUATION ---
Anesthesia Post Eval - Post Anesthesia Eval Vitals: Last Vital Signs Temp 98.1 C H 04/20/21 09:19 Pulse 70 04/20/21 09:19 Resp 17 04/20/21 09:19 BP 93/50 L 04/20/21 09:19 Pulse Ox 98 04/20/21 09:19 CV Function Including HR & BP: Stable Pain Control: Satisfactory Nausea & Vomiting: Negative Mental Status: Baseline Respiratory Status: Airway Patent Hydration Status: Satisfactory Anesthesia Complications: None
--- NOTE | 2021-04-20 09:31 | PROVIDER PROGRESS NOTE ---
Progress Note Gastrointestinal bleed. Systemic anticoagulation. History of coronary artery disease and atrial fibrillation. Status post upper and lower endoscopy. Colonoscopy results: 1. Poor prep requiring extensive lavage 2. Ileocecal valve achieved as evidenced by the appendiceal orifice both photographed. 3. Terminal ileum intubated with mild enteritis; cold forceps biopsies hemostatic. 4. Cecum with cecitis. This was focal and isolated to the cecum. Cold forceps biopsies performed. The remainder of the colon was without colitis. No diverticulosis or diverticulitis. 5. Careful slow withdrawal without any notable pathology. 6. No masses or polyps appreciated. Mildly tortuous colon 7. Rectum without proctitis. Sigmoid without diverticulosis. No diverticulitis. 8. Internal hemorrhoids nonbleeding EGD results: 1. Duodenum normal. No evidence of of duodenitis. Cold forcep biopsy obtained. Hemostatic. 2. Antrum without any antritis. Biopsies obtained cold forceps. Hemostatic. Patent pylorus. 3. Retroflexion with no significant hiatal herniation. 4. No diffuse gastritis or gastropathy. No polyps. No ulcerations. 5. GE junction with mild inflammatory changes and irregular Z-line. Biopsied. 6. Distal esophageal biopsies above the Z-line to rule out metaplasia. 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 Follow-up pathology. Continue PPI. Consider Cipro and Flagyl for isolated typhlitis. This can be continued for a week. Continue PPI. Follow-up pathology. Advance diet. Potentially occult source within the small bowel. However no blood noted either in the terminal ileum nor extensively within the upper GI thus likely either chronic from cecitis or self- limited
[2021-04-20] MEDS: TAMSULOSIN 0.4 MG CAPSULE PO SCH ×2 (10:03→20:59)
[2021-04-20] MEDS: FERROUS SULFATE 325 MG TABLET PO SCH (10:03)
--- NOTE | 2021-04-20 11:34 | PROVIDER PROGRESS NOTE ---
Assessment/Plan - Problem List (1) GI bleed Assessment/Plan: 04/20 pt had both EGD and colonoscopy. Per GI surgeon's report pt is Likely chronic gastrointestinal bleed from cecitis and from possible esophagitis, no acute bleeding site at endoscopy study. pt has chronic disease CKD at stage IV. Biopsies are pending. continue PPI, Advance diet, continue H&H monitor. Pt's HGB is drop to 6.9 in the morning lab test. pt denies any bowel movement yet. pt report his stool is dark but pt also took iron pill. pt has a history of GI pathology including Blue's, esophageal ulcer. Pt had HGB 6.4 at the adm ission. Patient also take Xarelto for his atrial fibrillation. Patient did report he take Xarelto on yesterday morning. Patient also report he lost 20 pounds in recently, patient has a history of bladder cancer. Because of recently taking Xarelto, general surgeon will hold on today for the EGD and colonoscopy, plan tomorrow morning to do EGD and colonoscopy for pt. Patient already had bowel repair, we will keep patient on clear liquid diet, NPO After midnight. Continue intravenous PPI. Continue hemoglobin monitor. Patient had 1 units of blood transfusion in the hospital. We will continue home iron pill. Continue laboratory chemical assistant. (2)anemia 04/20 Pt's HGB is drop to 6.9 in the morning lab test. pt denies any bowel movement yet. Per GI surgeon's report pt is Likely chronic gastrointestinal bleed from cecitis and from possible esophagitis, no acute bleeding site at endoscopy study. pt has chronic disease CKD at stage IV. we will have one unit of blood transfusion for pt. pt appears pallor, fatigue and weak. pt will have anemia study, and will followup the study. continue H&H (3) Dyspnea on exertion 04/20 stable, pt has no acute respiratory distress, No tachypnea. pt has 96% on room air with 16 RR. continue hold IVF, pt will have one unit of blood transfusion. continue vital monitor pt. Patient has a history of pulmonary hypertension with RVSP 51mmHg In the previous echo study with hx of valvular heart disease, chronic anemia. chest x-ray show patient had moderate pulmonary edema. At the same time patient's creatinine increases to 2.6 at the admission from previous 2.3. We will hold intravenous IV fluids, Hold PO Torsemide in his home medication list now. Continue follow-up with his log buyer as outpatient (4) Chronic kidney disease, stage IV (severe) 04/20 improved. creatinine is 2.2 on today, improved from 2.6 at his admission. continue Hold home Torsemide medication, hold intravenous IV fluids, Continue to avoid nephrotoxic agents, lab monitor. patient's creatinine increases to 2.6 at the admission from previous 2.3. but chest x-ray show patient had moderate pulmonary edema. pt has hx of SOB Hold home Torsemide medication, hold intravenous IV fluids, Continue to avoid nephrotoxic agents Retroperitoneal ultrasound is pending. Continue laboratory monitoring (5) Pulmonary hypertension Conclusion/Plan: Patient has a history of pulmonary hypertension with RVSP 51mmHg In the previous echo study. pt was Followed closely by his log buyer. His exam indicates that right-sided heart failure may be slightly worse than usual with his leg edema, shortness of breath. hold IVF, hold torsemide now, vital sign and lab monitor closely. (6) Do not resuscitate status Conclusion/Plan: He wants to note this in the chart. - Current Meds Current Meds: Current Medications Generic Name Dose Route Start Last Admin Trade Name Freq PRN Reason Stop Dose Admin Atorvastatin Calcium 10 mg 04/19/21 21:00 04/19/21 20:58 Atorvastatin 10 Mg Tablet PO 10 mg QPM FLORES Administration Ferrous Sulfate 325 mg 04/20/21 08:00 04/20/21 10:03 Ferrous Sulfate 325 Mg Tablet PO 325 mg DAILYWM FLORES Administration Ondansetron HCl 4 mg 04/18/21 19:58 04/20/21 11:07 Ondansetron Odt 4 Mg Tablet TL 4 mg Q6HR PRN Administration Nausea / Vomiting Pantoprazole Sodium 40 mg 04/18/21 21:00 04/19/21 20:58 Pantoprazole 40 Mg Vial IVP 40 mg BID FLORES Administration Sodium Chloride 10 ml 04/19/21 01:00 04/20/21 10:03 Sodium Chloride Flush 0.9% 10 Ml Syringe IVP 10 ml 0100,0900,1700 FLORES Administration Tamsulosin HCl 0.4 mg 04/19/21 21:00 04/20/21 10:03 Tamsulosin 0.4 Mg Capsule PO 0.4 mg BID FLORES Administration - Lab Result Fish Bone Diagrams: 04/20/21 04:25 04/20/21 04:25 - Additional Planning My Orders: My Active Orders 04/19/21 21:00 Atorvastatin [Lipitor] 10 mg PO QPM Tamsulosin [Flomax] 0.4 mg PO BID 04/20/21 08:00 Ferrous Sulfate [Feosol] 325 mg PO DAILYWM 04/20/21 08:10 Transfuse RBCs Leukoreduced [RC] .ONCE 04/20/21 09:26 Metoprolol Succinate [Toprol Xl] 25 mg PO DAILY 04/20/21 Lunch Soft (Low Fiber) Diet [DIET] 04/20/21 11:18 FERRITIN [IAI] Routine IRON TIBC PANEL [CHEM] Routine LDH - LACTATE DEHYDROGENASE [CHEM] Routine RETIC [HEME] Routine VITAMIN B12 [IAI] Routine 04/20/21 14:00 H&H [HEMOGLOBIN AND HEMATOCRIT] [HEME] Timed 04/20/21 21:00 H&H [HEMOGLOBIN AND HEMATOCRIT] [HEME] Timed 04/21/21 05:00 BMP - BASIC METABOLIC PANEL [CHEM] DAILYLAB CBC - COMP BLD CT W/AUTO DIFF [HEME] DAILYLAB 04/22/21 05:00 BMP - BASIC METABOLIC PANEL [CHEM] DAILYLAB CBC - COMP BLD CT W/AUTO DIFF [HEME] DAILYLAB 04/23/21 05:00 BMP - BASIC METABOLIC PANEL [CHEM] DAILYLAB CBC - COMP BLD CT W/AUTO DIFF [HEME] DAILYLAB 04/24/21 05:00 CBC - COMP BLD CT W/AUTO DIFF [HEME] DAILYLAB Subjective - Subjective Patient Reports: Nausea Objective Vital Signs: Vital Signs - 24 hr 04/19/21 04/19/21 04/19/21 12:03 15:35 20:57 Temperature 36.8 C 36.7 C 36.8 C Heart Rate Heart Rate [ 72 71 69 Brachial] Respiratory 24 18 18 Rate Blood Pressure Blood Pressure 125/60 [Left Brachial artery] Blood Pressure 116/65 122/61 [Right Brachial artery] O2 Saturation 100 98 97 04/19/21 04/20/21 04/20/21 23:27 04:29 07:30 Temperature 36.5 C 36.8 C 36.7 C Heart Rate Heart Rate [ 71 71 70 Brachial] Respiratory 18 16 20 Rate Blood Pressure Blood Pressure [Left Brachial artery] Blood Pressure 106/54 L 115/63 108/65 [Right Brachial artery] O2 Saturation 100 96 95 04/20/21 04/20/21 04/20/21 08:17 09:19 09:39 Temperature 36.7 C 36.7 C 36.8 C Heart Rate 70 71 Heart Rate [ 70 Brachial] Respiratory 20 17 18 Rate Blood Pressure 116/61 107/63 Blood Pressure 93/50 L [Left Brachial artery] Blood Pressure [Right Brachial artery] O2 Saturation 95 98 04/20/21 04/20/21 04/20/21 09:46 09:56 10:15 Temperature 36.7 C 36.8 C 36.4 C L Heart Rate 70 73 Heart Rate [ 61 Brachial] Respiratory 17 16 16 Rate Blood Pressure 117/60 120/64 Blood Pressure 119/52 L [Left Brachial artery] Blood Pressure [Right Brachial artery] O2 Saturation 96 04/20/21 11:04 Temperature 36.5 C Heart Rate Heart Rate [ 82 Brachial] Respiratory 16 Rate Blood Pressure Blood Pressure 111/61 [Left Brachial artery] Blood Pressure [Right Brachial artery] O2 Saturation 96 Oxygen O2 Source Room air I&O (Last 24 Hrs): Intake and Output Totals x24h 04/18/21 04/19/21 04/20/21 23:59 23:59 23:59 Intake Total 300 2181 Output Total 20 Balance 280 2181 General: Alert, Oriented x3, Cooperative, No acute distress HEENT: Atraumatic Neck: Supple Lymphatic: no adenopathy Neuro: Alert, Non Focal, Oriented Times 3 Cardiovascular: Regular rate, Normal S1, Normal S2 Respiratory: Chest non-tender, No respiratory distress Abdomen: Normal bowel sounds, Soft, No tenderness Extremities: Normal pulses - Results Results: Laboratory Results WBC 4.1 x10^3/uL (4.8-10.8) L 04/20/21 04:25 RBC 2.31 10^6/uL (4.70-6.10) L 04/20/21 04:25 Hgb 6.9 g/dL (14.0-18.0) L* 04/20/21 04:25 Hct 22.0 % (42.0-52.0) L 04/20/21 04:25 MCV 95.2 fL (80.0-94.0) H 04/20/21 04:25 MCH 29.9 pg (27.0-31.0) 04/20/21 04:25 MCHC 31.4 g/dL (32.0-36.0) L 04/20/21 04:25 RDW 17.2 % (12.0-15.0) H 04/20/21 04:25 Plt Count 184 10^3/uL (130-450) 04/20/21 04:25 MPV 11.3 fL (7.4-11.4) 04/20/21 04:25 Neut # (Auto) 3.0 10^3/uL (1.5-6.6) 04/20/21 04:25 Lymph # (Auto) 0.4 10^3/uL (1.5-3.5) L 04/20/21 04:25 [place] # (Auto) 0.6 10^3/uL (0.0-1.0) 04/20/21 04:25 Eos # (Auto) 0.1 10^3/uL (0.0-0.7) 04/20/21 04:25 Baso # (Auto) 0.0 10^3/uL (0.0-0.1) 04/20/21 04:25 Absolute Nucleated RBC 0.00 x10^3/uL 04/20/21 04:25 Nucleated RBC % 0.0 /100WBC 04/20/21 04:25 Manual Slide Review Not Reportable 04/20/21 04:25 PT 24.2 secs (9.9-12.6) H 04/18/21 19:38 INR 2.3 (0.8-1.2) H 04/18/21 19:38 APTT 37.0 secs (24.9-33.3) H 04/18/21 19:38 Sodium 144 mmol/L (135-145) 04/20/21 04:25 Potassium 3.6 mmol/L (3.5-5.0) 04/20/21 04:25 Chloride 107 mmol/L (101-111) 04/20/21 04:25 Carbon Dioxide 27 mmol/L (21-32) 04/20/21 04:25 Anion Gap 10.0 (6-13) 04/20/21 04:25 BUN 31 mg/dL (6-20) H 04/20/21 04:25 Creatinine 2.2 mg/dL (0.6-1.2) H 04/20/21 04:25 Estimated GFR (MDRD) 29 (>89) L 04/20/21 04:25 Glucose 109 mg/dL (70-100) H 04/20/21 04:25 Calcium 8.6 mg/dL (8.5-10.3) 04/20/21 04:25 Total Bilirubin 0.9 mg/dL (0.2-1.0) 04/18/21 19:38 AST 23 IU/L (10-42) 04/18/21 19:38 ALT 14 IU/L (10-60) 04/18/21 19:38 Alkaline Phosphatase 123 IU/L (42-121) H 04/18/21 19:38 Total Protein 6.6 g/dL (6.7-8.2) L 04/18/21 19:38 Albumin 3.6 g/dL (3.2-5.5) 04/18/21 19:38 Globulin 3.0 g/dL (2.1-4.2) 04/18/21 19:38 Albumin/Globulin Ratio 1.2 (1.0-2.2) 04/18/21 19:38 Lipase 42 U/L (22-51) 04/18/21 19:38 Urine Color YELLOW 04/18/21 20:45 Urine Clarity CLEAR (CLEAR) 04/18/21 20:45 Urine pH 6.0 PH (5.0-7.5) 04/18/21 20:45 Ur Specific [place] 1.015 (1.002-1.030) 04/18/21 20:45 Urine Protein NEGATIVE mg/dL (NEGATIVE) 04/18/21 20:45 Urine Glucose (UA) NEGATIVE mg/dL (NEGATIVE) 04/18/21 20:45 Urine Ketones NEGATIVE mg/dL (NEGATIVE) 04/18/21 20:45 Urine Occult Blood NEGATIVE (NEGATIVE) 04/18/21 20:45 Urine Nitrite NEGATIVE (NEGATIVE) 04/18/21 20:45 Urine Bilirubin NEGATIVE (NEGATIVE) 04/18/21 20:45 Urine Urobilinogen 0.2 (NORMAL) E.U./dL (NORMAL) 04/18/21 20:45 Ur Leukocyte Esterase NEGATIVE (NEGATIVE) 04/18/21 20:45 Ur Microscopic Review NOT INDICATED 04/18/21 20:45 Urine Culture Comments NOT INDICATED 04/18/21 20:45 Nasal Adenovirus (PCR) NOT DETECTED 04/18/21 19:55 Nasal B. parapertussis DNA (PCR) NOT DETECTED 04/18/21 19:55 Nasal Coronavir 229E PCR NOT DETECTED 04/18/21 19:55 Nasal Coronavir HKU1 PCR NOT DETECTED 04/18/21 19:55 Nasal Coronavir NL63 PCR NOT DETECTED 04/18/21 19:55 Nasal Coronavir OC43 PCR NOT DETECTED 04/18/21 19:55 Nasal Enterovir/Rhinovir PCR NOT DETECTED 04/18/21 19:55 Nasal Influenza B PCR NOT DETECTED 04/18/21 19:55 Nasal Influenza A PCR NOT DETECTED 04/18/21 19:55 Nasal Parainfluen 1 PCR NOT DETECTED 04/18/21 19:55 Nasal Parainfluen 2 PCR NOT DETECTED 04/18/21 19:55 Nasal Parainfluen 3 PCR NOT DETECTED 04/18/21 19:55 Nasal Parainfluen 4 PCR NOT DETECTED 04/18/21 19:55 Nasal RSV (PCR) NOT DETECTED 04/18/21 19:55 Nasal B.pertussis DNA PCR NOT DETECTED 04/18/21 19:55 Nasal C.pneumoniae (PCR) NOT DETECTED 04/18/21 19:55 Valeriy Human Metapneumo PCR NOT DETECTED 04/18/21 19:55 Nasal M.pneumoniae (PCR) NOT DETECTED 04/18/21 19:55 Nasal SARS-CoV-2 (PCR) NOT DETECTED 04/18/21 19:55 Blood Type B POSITIVE 04/18/21 19:38 Blood Type Recheck B POSITIVE 04/18/21 19:58 Antibody Screen NEGATIVE 04/18/21 19:38 Crossmatch IS Only See Detail 04/18/21 19:38 - Procedures Procedures: Procedures EXCISION OF ASCENDING COLON, ENDO (08/15/16) EXCISION OF DUODENUM, ENDO, DIAGN (01/15/18) EXCISION OF ESOPHAGUS, ENDO, DIAGN (01/15/18) INSPECTION OF LOWER INTESTINAL TRACT, ENDO (08/27/18) ABX Reporting Has patient been on IV antibiotics over the past 48 hours?: No Current Medications - Current Medications Current Medications: Active Medications Atorvastatin Calcium (Atorvastatin 10 Mg Tablet) 10 mg PO QPM FLORES Last Admin: 04/19/21 20:58 Dose: 10 mg Documented by: Ferrous Sulfate (Ferrous Sulfate 325 Mg Tablet) 325 mg PO DAILYWM [facility] Last Admin: 04/20/21 10:03 Dose: 325 mg Documented by: Metoprolol Succinate (Metoprolol Succinate 25 Mg Tablet) 25 mg PO DAILY [facility] Morphine Sulfate (Morphine 2 Mg/Ml Carpuject) 2 mg IVP Q2HR PRN PRN Reason: Pain 8 to 10 Ondansetron HCl (Ondansetron Odt 4 Mg Tablet) 4 mg TL Q6HR PRN PRN Reason: Nausea / Vomiting Last Admin: 04/20/21 11:07 Dose: 4 mg Documented by: Ondansetron HCl (Ondansetron 4 Mg/2 Ml Vial) 4 mg IVP Q6HR PRN PRN Reason: Nausea / Vomiting Pantoprazole Sodium (Pantoprazole 40 Mg Vial) 40 mg IVP BID [facility] Last Admin: 04/19/21 20:58 Dose: 40 mg Documented by: Sodium Chloride (Sodium Chloride Flush 0.9% 10 Ml Syringe) 10 ml IVP PRN PRN PRN Reason: NEEDED PER PROVIDER ORDERS Sodium Chloride (Sodium Chloride Flush 0.9% 10 Ml Syringe) 10 ml IVP 0100,0900,1700 [facility] Last Admin: 04/20/21 10:03 Dose: 10 ml Documented by: Tamsulosin HCl (Tamsulosin 0.4 Mg Capsule) 0.4 mg PO BID [facility] Last Admin: 04/20/21 10:03 Dose: 0.4 mg Documented by: Metoprolol Succinate [Toprol Xl] 25 mg ORAL DAILY 08/15/16 Simvastatin 20 mg ORAL QPM 08/15/16 Ferrous Sulfate 1 tab PO DAILY 01/14/18 Losartan Potassium 12.5 mg PO DAILY 01/14/18 Pantoprazole [Protonix] 40 mg PO DAILY 01/14/18 Umeclidinium Brm/Vilanterol Tr [Anoro Ellipta 62.5-25 Mcg INH] 1 puffs INH DAILY 01/14/18 Rivaroxaban [Xarelto] 15 mg PO DAILY 04/19/21 Tamsulosin [Flomax] 0.4 mg PO BID 04/19/21 Torsemide 40 mg PO DAILY 04/19/21 allopurinoL [Zyloprim] 100 mg PO DAILY 04/19/21
[2021-04-20 11:37] LABS: ABSOLUTE RETICS # AUTO 0.083 10^6/uL (0.020-0.110); RED BLOOD COUNT 2.95 10^6/uL (4.70-6.10); RETICULOCYTE COUNT % (AUTO) 2.82 % (0.5-2.3)
[2021-04-20 12:13] LABS: % IRON SATURATION 31 % (20-50); FERRITIN 14.9 ng/mL (23.9-336.2); IRON 134 ug/dL (45-182); TOTAL IRON BINDING CAPACITY 433 ug/dL (250-450); TRANSFERRIN 309 mg/dL (180-329)
[2021-04-20] MEDS: PANTOPRAZOLE 40 MG VIAL IVP SCH ×2 (12:48→20:59)
[2021-04-20 14:04] LABS: HCT - HEMATOCRIT 26.5 % (42.0-52.0); HGB - HEMOGLOBIN 8.4 g/dL (14.0-18.0)
[2021-04-20] MEDS: ATORVASTATIN 10 MG TABLET PO SCH (20:59)
[2021-04-20 21:22] LABS: HGB - HEMOGLOBIN 8.4 g/dL (14.0-18.0)
[2021-04-21 05:10] LABS: BASOPHILS % (AUTO) 0.4 %; EOSINOPHILS # (AUTO) 0.2 10^3/uL (0.0-0.7); EOSINOPHILS % (AUTO) 2.2 %; HCT - HEMATOCRIT 27.1 % (42.0-52.0); HGB - HEMOGLOBIN 8.4 g/dL (14.0-18.0); LYMPHOCYTES # (AUTO) 0.4 10^3/uL (1.5-3.5); LYMPHOCYTES % (AUTO) 4.8 %; MEAN CORPUSCULAR HEMOGLOBIN 29.5 pg (27.0-31.0); MEAN CORPUSCULAR VOLUME 95.1 fL (80.0-94.0); MEAN PLATELET VOLUME 10.5 fL (7.4-11.4); MONOCYTES # (AUTO) 0.8 10^3/uL (0.0-1.0); MONOCYTES % (AUTO) 10.7 %; NEUTROPHILS # (AUTO) 6.4 10^3/uL (1.5-6.6); NEUTROPHILS % (AUTO) 81.4 %; NRBC ABSOLUTE COUNT (AUTO) 0.03 x10^3/uL; NUCLEATED RED BLOOD CELLS AUTO 0.4 /100WBC; PLT - PLATELET COUNT 183 10^3/uL (130-450); RED BLOOD COUNT 2.85 10^6/uL (4.70-6.10); RED CELL DISTRIBUTION WIDTH 17.1 % (12.0-15.0); WHITE BLOOD COUNT 7.9 x10^3/uL (4.8-10.8)
[2021-04-21 05:16] LABS: CALCIUM 8.7 mg/dL (8.5-10.3); CREATININE 1.9 mg/dL (0.6-1.2); POTASSIUM 3.3 mmol/L (3.5-5.0)
[2021-04-21] MEDS ORDERED: POTASSIUM CHLORIDE 20 MEQ TABLET PO ONE (07:39)
[2021-04-21] MEDS ORDERED: ALBUTEROL NEB 2.5 MG/3 ML INH PRN (07:41)
[2021-04-21] MEDS: SODIUM CHLORIDE FLUSH 0.9% 10 ML SYRINGE IVP SCH ×2 (07:52→07:56)
[2021-04-21] MEDS: TAMSULOSIN 0.4 MG CAPSULE PO SCH (07:53)
[2021-04-21] MEDS: FERROUS SULFATE 325 MG TABLET PO SCH (07:53)
[2021-04-21] MEDS: PANTOPRAZOLE 40 MG VIAL IVP SCH (07:53)
[2021-04-21] MEDS ORDERED: FORMOTEROL FUMARATE NEB 20 MCG/2 ML INH SCH (08:00)
[2021-04-21] MEDS ORDERED: IPRATROPIUM 0.2 MG/ML NEB INH SCH (08:00)
--- NOTE | 2021-04-21 08:53 | Discharge Plan ---
Discharge Plan Problem Reviewed?: Yes Disposition: Home, Self Care Condition: Stable Diet: Regular Activity Restrictions: Activity as Tolerated Shower Restrictions: No (fall precaution) Instruction Topics: Pantoprazole tablets, Rivaroxaban oral tablets, Bleeding Gastrointestinal Health Concerns: GI bleeding Plan of Treatment: Your HGB is stable. You had both EGD and colonoscopy done by surgeon in the hospital. 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 You may continue to take Protonic and iron pill as your home medication, hold Xarelto now until you see your PCP in one week and recheck your HGB, then you may discuss with your PCP if resume your Xarelto and further management. You may hold the input of alcohol, NSAIDs such as Ibuprofen, Naproxen. Surgeon office will inform your biopsy result from the EGD and colonoscopy procedure. You are also prescribed Walker for your safely walking Care Goals: stabilization and improvement of your medical conditions Assessment: discussed the care plan with you, answered your questions, you understood. Additional Instructions or Follow Up instructions: You may followup with your PCP in one week, recheck your HGB and discuss if resume your Xarelto with your PCP. Should your symptoms return or worsen, you may present ER or call 911 for help. No Smoking: If you smoke, Please STOP! Call for help. Follow-up with: Basia Shaw PA-C [Primary Care Provider] -
--- NOTE | 2021-04-21 09:16 | DISCHARGE SUMMARY ---
"Discharge Summary Admit Date: 04/18/21 Discharge Date: 04/21/21 Discharging Provider: Samir Roberts Primary Care Provider: Stephanie Alamo Condition at Discharge: Stable Discharge Disposition: 01 Home, Self Care Discharge Facility Name: home - DIAGNOSES Discharge Diagnoses with Status of Each Condition: (1) GI bleed pt has stable HGB. HGB is 8.4. pt had two unit of blood transfusion at hospital. Patient had a EGD and colonoscopy done in the hospital by GI surgeon. 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 Pt may continue to take his home meds Protonic and iron pill, hold Xarelto now until he see his PCP in one week and recheck HGB, then he may discuss with his PCP if resume his Xarelto and further management. Pt may hold the input of alcohol, NSAIDs such as Ibuprofen, Naproxen. Surgeon office will inform his biopsy result from the EGD and colonoscopy procedure. (2)anemia stable HGB. Pt may continue to take his home meds Protonic and iron pill, recheck HGB at his PCP office in one week. (3) Dyspnea on exertion resolved (4) Chronic kidney disease, stage IV (severe) improved. creatinine is 1.9 from 2.6 at the admission. (5) Pulmonary hypertension stable. - [facility] History of Present Illness: refer from Dr. 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 He has a baseline anemia of 10 g of hemoglobin. In the last 2 to 3 weeks he has gotten more short of breath. It is gotten to the point that he cannot climb stairs. He says walk ing 20 feet is very difficult. Climbing stairs is impossible.Chronic atrial fibrillation and has had ablation with a pacer in place. His heart rate is gotten faster but he does not think it is the fast heart rate of atrial fibrillation. He has lost about 20 pounds since earlier this year. Due to lack of appetite. Not wanting to eat very much. His stools are intermittently dark and they have been for years because of iron replacement therapy.He denies chest pain. His legs have gotten more more swollen.As long as he stays still, sits or lays in bed, he feels better. He went to see his primary care provider today. His anemia was much worse than usual and he was told to come to the emergency room for transfusion. His baseline hemoglobin of 10 g of hemoglobin has diminished to 6.9. His temperature is 36.4. Pulse 74. Blood pressure 96/43. Respirations 14 and he is 100% on room air. He had moist mucous membranes. No respiratory distress with clear lungs. A nontender abdomen that was not distended. Mild bilateral lower extremity edema. He requested that a rectal not be done.The emergency room physician is asking that the hospitalist medicine service placed this patient in observation for GI bleed. He has already consulted with Dr. Blayne Quiroga, general surgery, who states he will do an EGD and colonoscopy in the morning. - CONSULTS | PROCEDURES Consultations: Dr. Quiroga Procedures: EGD and Colonoscopy - HOSPITAL COURSE Hospital Course: Patient was admitted for GI bleed, patient had a hemoglobin 6.4 on admission, patient had a 2 unit blood transfusion. Patient take Xarelto for his a fibrillation in the home. Patient's Xarelto was on hold in the hospital, patient had EGD and colonoscopy done in hospital. Patient had an intravenous Protonix in the hospital. 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 After treatment, patient had stable hemoglobin. pt had no bowel movement in hospital. Patient was discharged in hemodynamic stable condition - ALLERGIES Allergies/Adverse Reactions: Allergies Allergy/AdvReac Type Severity Reaction Status Date / Time Iodine and Iodide Containing Allergy Rash Verified 04/18/21 19:03 Produc tizanidine AdvReac syncope Verified 04/18/21 19:03 - MEDICATIONS Home Medications: Ambulatory Orders Medication Instructions Recorded Confirmed Metoprolol Succinate [Toprol Xl] 25 mg ORAL DAILY 08/15/16 04/19/21 Simvastatin 20 mg ORAL QPM 08/15/16 04/19/21 Ferrous Sulfate 1 tab PO DAILY 01/14/18 04/19/21 Losartan Potassium 12.5 mg PO DAILY 01/14/18 04/19/21 Pantoprazole [Protonix] 40 mg PO DAILY 01/14/18 04/19/21 Umeclidinium Brm/Vilanterol Tr 1 puffs INH DAILY 01/14/18 04/19/21 [Anoro Ellipta 62.5-25 Mcg INH] Tamsulosin [Flomax] 0.4 mg PO BID 04/19/21 04/19/21 Torsemide 40 mg PO DAILY 04/19/21 04/19/21 allopurinoL [Zyloprim] 100 mg PO DAILY 04/19/21 04/19/21 - PHYSICAL EXAM AT DISCHARGE General Appearance: positive: No acute distress, Alert. negative: Lethargic Eyes Bilateral: positive: Normal inspection, PERRL, No lid inflammation ENT: positive: ENT inspection nml, No signs of dehydration. negative: Purulent nasal drainage Neck: positive: Nml inspection, Trachea midline. negative: Thyromegaly, Tracheal deviation Respiratory: positive: Chest non-tender, No respiratory distress. negative: Wheezes, Rales, Rhonchi Cardiovascular: positive: Regular rate & rhythm, No murmur. negative: Tachycardia, Bradycardia, Systolic murmur, Diastolic murmur Peripheral Pulses: positive: 2+ Abdomen: positive: Non-tender, Nml bowel sounds, No distention. negative: Tend erness Skin: positive: Color nml, Warm, Dry. negative: Cyanosis, Diaphoresis Extremities: positive: Non-tender, Full ROM, Nml appearance. negative: Calf tenderness Neurologic/Psychiatric: positive: Oriented x3, Motor nml, Sensation nml, Mood/affect nml. negative: Weakness, Sensory loss, Facial droop, Slurred/abnml speech, Depressed mood/affect - LABS Result Diagrams: 04/21/21 05:00 04/21/21 05:00 - FOLLOW UP Follow Up: Your HGB is stable. You had both EGD and colonoscopy done by surgeon in the hospital. 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 You may continue to take Protonic and iron pill as your home medication, hold Xarelto now until you see your PCP in one week and recheck your HGB, then you may discuss with your PCP if resume your Xarelto and further management. You may hold the input of alcohol, NSAIDs such as Ibuprofen, Naproxen. Surgeon office will inform your biopsy result from the EGD and colonoscopy procedure. You are also prescribed Walker for your safely walking. You may followup with your PCP in one week, recheck your HGB and discuss if resume your Xarelto with your PCP. Should your symptoms return or worsen, you may present ER or call 911 for help. - TIME SPENT Time Spent in Discharge (Minutes): 30"
[2021-04-21 12:05] VITALS: BP 102/54
== END 2021-04-21 12:35 | disposition home or self-care (01) | DRG 391 ==
LOC: ED 18:55 → MS2 19:58 → OBSVTOIN 04-19 11:22
PROVIDERS: ADMIT Specialist; ATTEND Nurse Practitioner Gerontology
PROC: 0DBB8ZX Excision of Ileum, Via Natural or Artificial Opening Endoscopic, Diagnostic (ICD-10-PCS; 2021-04-20)
PROC: 0DB98ZX Excision of Duodenum, Via Natural or Artificial Opening Endoscopic, Diagnostic (ICD-10-PCS; 2021-04-20)
PROC: 0DB78ZX Excision of Stomach, Pylorus, Via Natural or Artificial Opening Endoscopic, Diagnostic (ICD-10-PCS; 2021-04-20)
PROC: 0DB38ZX Excision of Lower Esophagus, Via Natural or Artificial Opening Endoscopic, Diagnostic (ICD-10-PCS; 2021-04-20)
PROC: 0DB48ZX Excision of Esophagogastric Junction, Via Natural or Artificial Opening Endoscopic, Diagnostic (ICD-10-PCS; 2021-04-20)
PROC: 30233N1 Transfusion of Nonautologous Red Blood Cells into Peripheral Vein, Percutaneous Approach (ICD-10-PCS; principal; 2021-04-20 08:00)
PROC: 0DBH8ZX Excision of Cecum, Via Natural or Artificial Opening Endoscopic, Diagnostic (ICD-10-PCS; 2021-04-20 08:00)
DX: D64.9 Anemia, unspecified (principal); K52.9 Noninfective gastroenteritis and colitis, unspecified; Z20.822 Contact with and (suspected) exposure to COVID-19; I10 Essential (primary) hypertension; E78.5 Hyperlipidemia, unspecified; K21.01 Gastro-esophageal reflux disease with esophagitis, with bleeding; D62 Acute posthemorrhagic anemia; N18.9 Chronic kidney disease, unspecified; N18.4 Chronic kidney disease, stage 4 (severe); I48.91 Unspecified atrial fibrillation; I48.20 Chronic atrial fibrillation, unspecified; R06.00 Dyspnea, unspecified; I12.9 Hypertensive chronic kidney disease with stage 1 through stage 4 chronic kidney disease, or unspecified chronic kidney disease; I27.20 Pulmonary hypertension, unspecified; K64.8 Other hemorrhoids; R63.0 Anorexia; I25.10 Atherosclerotic heart disease of native coronary artery without angina pectoris; E78.00 Pure hypercholesterolemia, unspecified; R60.0 Localized edema; H91.90 Unspecified hearing loss, unspecified ear; Z66 Do not resuscitate; N40.1 Benign prostatic hyperplasia with lower urinary tract symptoms; R35.0 Frequency of micturition; R35.1 Nocturia; R39.15 Urgency of urination; M10.9 Gout, unspecified; Z95.0 Presence of cardiac pacemaker; Z95.2 Presence of prosthetic heart valve; Z87.11 Personal history of peptic ulcer disease; Z87.19 Personal history of other diseases of the digestive system; Z79.01 Long term (current) use of anticoagulants; Z87.891 Personal history of nicotine dependence; K52.89 Other specified noninfective gastroenteritis and colitis; Z68.25 Body mass index [BMI] 25.0-25.9, adult; Z85.51 Personal history of malignant neoplasm of bladder
CPT/HCPCS: 36415; 36430; 71045; 76770; 80048; 80053; 81003; 82607; 82728; 83540; 83615; 83690; 84466; 85014; 85018; 85025; 85045; 85610; 85730; 86850; 86900; 86901; 86920; 87631; 96374; 96376; 97161; 99285; A9270; J7120; P9016; Q0162; 0202U; 81001; 87086

== ENCOUNTER 2021-04-26 08:00 | Outpatient (CLI) | payer MEDICARE, OTHER ==
[2021-04-26 18:07] LABS: BASOPHILS % (AUTO) 0.6 %; EOSINOPHILS # (AUTO) 0.1 10^3/uL (0.0-0.7); EOSINOPHILS % (AUTO) 1.6 %; HCT - HEMATOCRIT 28.8 % (42.0-52.0); HGB - HEMOGLOBIN 8.7 g/dL (14.0-18.0); LYMPHOCYTES # (AUTO) 0.6 10^3/uL (1.5-3.5); LYMPHOCYTES % (AUTO) 11.6 %; MEAN CORPUSCULAR HEMOGLOBIN 28.7 pg (27.0-31.0); MEAN CORPUSCULAR HGB CONC 30.2 g/dL (32.0-36.0); MEAN PLATELET VOLUME 11.6 fL (7.4-11.4); MONOCYTES # (AUTO) 0.6 10^3/uL (0.0-1.0); MONOCYTES % (AUTO) 11.8 %; NEUTROPHILS # (AUTO) 3.8 10^3/uL (1.5-6.6); NEUTROPHILS % (AUTO) 73.6 %; PLT - PLATELET COUNT 222 10^3/uL (130-450); RED BLOOD COUNT 3.03 10^6/uL (4.70-6.10); RED CELL DISTRIBUTION WIDTH 16.1 % (12.0-15.0); WHITE BLOOD COUNT 5.1 x10^3/uL (4.8-10.8)
[2021-04-26 18:29] LABS: % IRON SATURATION 9 % (20-50); IRON 33 ug/dL (45-182); TOTAL IRON BINDING CAPACITY 377 ug/dL (250-450); TRANSFERRIN 269 mg/dL (180-329)
[2021-04-26 18:42] LABS: FERRITIN 27.4 ng/mL (23.9-336.2)
== END 2021-04-26 23:59 | disposition home or self-care (01) ==
LOC: LAB.WCP 08:00
PROVIDERS: ATTEND Physician Assistant Medical
DX: D64.9 Anemia, unspecified (principal)
CPT/HCPCS: 36415; 82607; 82728; 83540; 84466; 85025

== ENCOUNTER 2021-05-10 08:00 | Outpatient (CLI) | payer MEDICARE, OTHER ==
[2021-05-10 12:19] LABS: BASOPHILS % (AUTO) 0.8 %; EOSINOPHILS # (AUTO) 0.1 10^3/uL (0.0-0.7); EOSINOPHILS % (AUTO) 1.9 %; HCT - HEMATOCRIT 32.5 % (42.0-52.0); HGB - HEMOGLOBIN 9.8 g/dL (14.0-18.0); LYMPHOCYTES # (AUTO) 0.7 10^3/uL (1.5-3.5); LYMPHOCYTES % (AUTO) 14.3 %; MEAN CORPUSCULAR HEMOGLOBIN 28.7 pg (27.0-31.0); MEAN CORPUSCULAR HGB CONC 30.2 g/dL (32.0-36.0); MEAN PLATELET VOLUME 12.3 fL (7.4-11.4); MONOCYTES # (AUTO) 0.5 10^3/uL (0.0-1.0); MONOCYTES % (AUTO) 9.3 %; NEUTROPHILS # (AUTO) 3.5 10^3/uL (1.5-6.6); NEUTROPHILS % (AUTO) 73.3 %; PLT - PLATELET COUNT 207 10^3/uL (130-450); RED BLOOD COUNT 3.42 10^6/uL (4.70-6.10); RED CELL DISTRIBUTION WIDTH 16.7 % (12.0-15.0); WHITE BLOOD COUNT 4.8 x10^3/uL (4.8-10.8)
== END 2021-05-10 23:59 | disposition home or self-care (01) ==
LOC: LAB.WCP 08:00
PROVIDERS: ATTEND Physician Assistant Medical
DX: D64.9 Anemia, unspecified (principal)
CPT/HCPCS: 36415; 85025

== ENCOUNTER 2021-05-25 08:00 | Outpatient (CLI) | payer MEDICARE, OTHER ==
[2021-05-25 11:41] LABS: CREATININE,URINE 109.3 mg/dL; PROTEIN/CREATININE RATIO,URINE 0.1 (<=0.2)
[2021-05-25 11:48] LABS: CREATININE 2.2 mg/dL (0.6-1.2); POTASSIUM 4.2 mmol/L (3.5-5.0)
[2021-05-25 12:02] LABS: BASOPHILS % (AUTO) 0.8 %; EOSINOPHILS # (AUTO) 0.1 10^3/uL (0.0-0.7); HGB - HEMOGLOBIN 10.5 g/dL (14.0-18.0); LYMPHOCYTES # (AUTO) 0.7 10^3/uL (1.5-3.5); LYMPHOCYTES % (AUTO) 13.3 %; MEAN CORPUSCULAR HEMOGLOBIN 28.7 pg (27.0-31.0); MEAN CORPUSCULAR HGB CONC 30.9 g/dL (32.0-36.0); MEAN CORPUSCULAR VOLUME 92.9 fL (80.0-94.0); MEAN PLATELET VOLUME 12.4 fL (7.4-11.4); MONOCYTES # (AUTO) 0.6 10^3/uL (0.0-1.0); MONOCYTES % (AUTO) 11.3 %; NEUTROPHILS # (AUTO) 3.7 10^3/uL (1.5-6.6); PLT - PLATELET COUNT 194 10^3/uL (130-450); RED BLOOD COUNT 3.66 10^6/uL (4.70-6.10); RED CELL DISTRIBUTION WIDTH 17.8 % (12.0-15.0); WHITE BLOOD COUNT 5.1 x10^3/uL (4.8-10.8)
== END 2021-05-25 23:59 | disposition home or self-care (01) ==
LOC: LAB.WCP 08:00
PROVIDERS: ATTEND Physician Assistant Medical
DX: N18.9 Chronic kidney disease, unspecified (principal); D64.9 Anemia, unspecified; N05.9 Unspecified nephritic syndrome with unspecified morphologic changes; D70.9 Neutropenia, unspecified; D63.1 Anemia in chronic kidney disease; R80.9 Proteinuria, unspecified
CPT/HCPCS: 36415; 80048; 82570; 82728; 84156; 85025

== ENCOUNTER 2021-07-12 08:00 | Outpatient (CLI) | payer MEDICARE, OTHER ==
[2021-07-12 17:54] LABS: BASOPHILS % (AUTO) 0.7 %; EOSINOPHILS % (AUTO) 0.7 %; HCT - HEMATOCRIT 38.2 % (42.0-52.0); HGB - HEMOGLOBIN 11.9 g/dL (14.0-18.0); LYMPHOCYTES # (AUTO) 0.5 10^3/uL (1.5-3.5); LYMPHOCYTES % (AUTO) 9.6 %; MEAN CORPUSCULAR HEMOGLOBIN 30.1 pg (27.0-31.0); MEAN CORPUSCULAR HGB CONC 31.2 g/dL (32.0-36.0); MEAN CORPUSCULAR VOLUME 96.7 fL (80.0-94.0); MEAN PLATELET VOLUME 12.2 fL (7.4-11.4); MONOCYTES # (AUTO) 0.5 10^3/uL (0.0-1.0); MONOCYTES % (AUTO) 8.9 %; NEUTROPHILS # (AUTO) 4.5 10^3/uL (1.5-6.6); NEUTROPHILS % (AUTO) 79.4 %; PLT - PLATELET COUNT 186 10^3/uL (130-450); RED BLOOD COUNT 3.95 10^6/uL (4.70-6.10); RED CELL DISTRIBUTION WIDTH 17.7 % (12.0-15.0); WHITE BLOOD COUNT 5.6 x10^3/uL (4.8-10.8)
[2021-07-12 18:05] LABS: PT - PROTHROMBIN TIME 11.6 secs (9.9-12.6)
[2021-07-12 18:11] LABS: CREATININE 2.2 mg/dL (0.6-1.2); POTASSIUM 4.1 mmol/L (3.5-5.0)
[2021-07-12 18:33] LABS: FERRITIN 73.1 ng/mL (23.9-336.2)
[2021-07-12 21:18] LABS: FREE T4 (FREE THYROXINE) 1.01 ng/dL (0.58-1.64)
== END 2021-07-12 23:59 | disposition home or self-care (01) ==
LOC: LAB.WCP 08:00
PROVIDERS: ATTEND Physician Assistant Medical
DX: D50.9 Iron deficiency anemia, unspecified (principal); N18.30 Chronic kidney disease, stage 3 unspecified; R94.6 Abnormal results of thyroid function studies; D64.9 Anemia, unspecified
CPT/HCPCS: 36415; 80048; 82728; 84439; 84443; 85025; 85610

== ENCOUNTER 2021-08-11 16:35 | Outpatient (CLI) | payer MEDICARE, OTHER | END 2021-08-11 16:36 | disposition critical access hospital (66) | LOC: EMS 16:35 | DX: R07.9 Chest pain, unspecified (principal) | CPT/HCPCS: A0425; A0427 ==

== ENCOUNTER 2021-08-11 16:50 | Emergency (ER) | payer MEDICARE, OTHER ==
--- NOTE | 2021-08-11 16:56 | ED Physician Documentation ---
PD HPI CHEST PAIN - Stated complaint Stated Complaint: CP/NAUSEA - History obtained from History obtained from: Patient - History of Present Illness Timing - onset: How many hours ago (few), Today Timing - onset during: Rest Timing - duration: Hours (few) Timing - details: Abrupt onset, Still present Quality: Aching, Pain Location: Substernal, Epigastric Radiation: No: Neck, Back, Left upper extremity Improved by: No: Rest, Nitro Worsened by: Eating. No: Inspiration, Movement Associated symptoms: Nausea, Vomiting, General Weakness. No: Shortness of air, Feeling faint / dizzy, Cough Similar symptoms before: Has not had sx before Recently seen: Admitted (April 2021 for weakness/dyspnea from GI bleed apparently with drop in Hgb down to 6 from 11. Transfused. Scoped without bleeding EGD/colonscopy. Presumed bleeding cecum? Did have gastritis history.) Review of Systems Constitutional: denies: Fever, Chills Ears: reports: Loss of hearing (mainly reads lips.) Nose: denies: Rhinorrhea / runny nose, Congestion Throat: denies: Sore throat Cardiac: reports: Chest pain / pressure (lower substernal). denies: Pedal edema, Calf pain Respiratory: denies: Cough GI: reports: Abdominal Pain (epigastric), Nausea, Vomiting. denies: Abdominal Swelling, Constipation, Diarrhea, Hematemesis, Bloody / black stool : denies: Dysuria Neurologic: reports: Generalized weakness. 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, Grade II/III, TCC, WADE, s/p BCG) HEENT: Chronic hearing loss Psych: None Musculoskeletal: Osteoarthritis, Gout Derm: None, Other - Past Surgical History Past Surgical History: Yes General: Colonoscopy, EGD, Other Ortho: Other Cardiovascular: Valve replacement, Pacemaker, Cardiac catheterization, Other HEENT: Cataracts (08/2006, 07/2008), Other (laser surgery eyes 11/2014) Derm: Skin cancer surgery - Present Medications Home Medications: Ambulatory Orders Medication Instructions Recorded Confirmed Metoprolol Succinate [Toprol Xl] 25 mg ORAL DAILY 08/15/16 07/13/21 Simvastatin 20 mg ORAL QPM 08/15/16 07/13/21 Ferrous Sulfate 1 tab PO DAILY 01/14/18 07/13/21 Losartan Potassium 12.5 mg PO DAILY 01/14/18 07/13/21 Pantoprazole [Protonix] 40 mg PO DAILY 01/14/18 07/13/21 Umeclidinium Brm/Vilanterol Tr 1 puffs INH DAILY 01/14/18 07/13/21 [Anoro Ellipta 62.5-25 Mcg INH] Tamsulosin [Flomax] 0.4 mg PO BID 04/19/21 07/13/21 Torsemide 40 mg PO DAILY 04/19/21 07/13/21 allopurinoL [Zyloprim] 100 mg PO DAILY 04/19/21 07/13/21 Famotidine [Pepcid] 20 mg PO BID #20 tablet 08/11/21 HYDROcod/ACETAM 5/325 [Chapman 5/325] 1 ea PO Q6H PRN #12 tablet 08/11/21 Promethazine [Phenergan] 25 mg PO Q6H PRN #12 tab 08/11/21 - Allergies Allergies/Adverse Reactions: Allergies Allergy/AdvReac Type Severity Reaction Status Date / Time Iodine and Iodide Containing Allergy Rash Verified 08/11/21 16:57 Produc dabigatran etexilate AdvReac Unknown Verified 08/11/21 16:57 [From Pradaxa] tizanidine AdvReac syncope Verified 08/11/21 16:57 - Social History Does the pt smoke?: No Smoking Status: Former smoker Does the pt have substance abuse?: No - POLST Patient has POLST: No POLST Status: DNR PD ED PE NORMAL - Vitals Vital signs reviewed: Yes - General General: Alert and oriented X 3, Well developed/nourished, Other (appears uncomfortable with holding emesis bag and attempting emesis. ) - HEENT HEENT: Moist mucous membranes, Pharynx benign, Other (hard of hearing. ) - Neck Neck: Supple, no meningeal sign, No adenopathy - Cardiac Cardiac: RRR, No murmur, Other (pacer felt on chestwall. ) - Respiratory Respiratory: Clear bilaterally (with faint crackles right base. ) - Abdomen Abdomen: Normal bowel sounds, Soft, Non distended, Other (tender epigastric area with guarding. Lower abd not tender. ) - Male Male : Deferred - Rectal Rectal: Deferred - Back Back: No CVA TTP - Derm Derm: Normal color, Warm and dry - Extremities Extremities: Normal ROM s pain, No edema, No calf tenderness / cord - Neuro Neuro: Alert and oriented X 3, No motor deficit, Normal speech Results - Vitals Vitals: Vital Signs - 24 hr 08/11/21 08/11/21 08/11/21 16:53 17:14 17:27 Temperature 36.1 C L Heart Rate 70 70 Respiratory 17 16 Rate Blood Pressure 94/66 98/69 105/67 O2 Saturation 97 97 08/11/21 08/11/21 08/11/21 17:30 17:55 18:30 Temperature Heart Rate 70 70 Respiratory 25 H 20 Rate Blood Pressure 106/63 108/66 96/57 L O2 Saturation 94 98 08/11/21 08/11/21 08/11/21 19:08 19:20 19:39 Temperature Heart Rate 72 70 77 Respiratory 16 16 17 Rate Blood Pressure 112/71 112/71 100/59 L O2 Saturation 92 100 100 Oxygen O2 Source Simple Mask Oxygen Flow Rate 2 - Labs Labs: Laboratory Tests 08/11/21 08/11/21 08/11/21 18:03 18:03 18:03 WBC 7.3 RBC 3.55 L Hgb 11.0 L Hct 34.8 L MCV 98.0 H MCH 31.0 MCHC 31.6 L RDW 16.8 H Plt Count 151 MPV 10.5 Neut # (Auto) 6.1 Lymph # (Auto) 0.5 L [place] # (Auto) 0.5 Eos # (Auto) 0.0 Baso # (Auto) 0.0 Absolute Nucleated RBC 0.00 Nucleated RBC % 0.0 Sodium 136 Potassium 3.5 Chloride 98 L Carbon Dioxide 28 Anion Gap 10.0 BUN 27 H Creatinine 2.3 H Estimated GFR (MDRD) 27 L Glucose 113 H Calcium 8.2 L Magnesium 1.1 L Total Bilirubin 0.9 AST 24 ALT 15 Alkaline Phosphatase 150 H Troponin I High Sens 13.1 B-Natriuretic Peptide Total Protein 7.1 Albumin 3.7 Globulin 3.4 Albumin/Globulin Ratio 1.1 Lipase 30 08/11/21 18:03 WBC RBC Hgb Hct MCV MCH MCHC RDW Plt Count MPV Neut # (Auto) Lymph # (Auto) [place] # (Auto) Eos # (Auto) Baso # (Auto) Absolute Nucleated RBC Nucleated RBC % Sodium Potassium Chloride Carbon Dioxide Anion Gap BUN Creatinine Estimated GFR (MDRD) Glucose Calcium Magnesium Total Bilirubin AST ALT Alkaline Phosphatase Troponin I High Sens B-Natriuretic Peptide 143 H Total Protein Albumin Globulin Albumin/Globulin Ratio Lipase - Rads (name of study) chest xray Radiology: Prelim report reviewed (small effusion right base, improved from prior. No infiltrates. ), See rad report abd/pelvic CT Radiology: Prelim report reviewed (no acute process. Large GB without inflammation nor stones. No obstructions nor free air. No acute process. Appendix not seen. ), See rad report PD MEDICAL DECISION MAKING - ED course Complexity details: reviewed results, re-evaluated patient (Improved treat briefly with medicines of antiemetic and pain medicine. However those were off and he had some increasing pain with return of nausea with emesis.), considered differential (Abrupt onset lower chest to epigastric pain associated with nausea and vomiting. Consider viral enteritis or food related. Consider obstruction, pancreatitis, perforated ulcer, gastritis or ulcer. Will get labs CT. Will evaluate for WA as well.), d/w patient ED course: Given the normal lab testing., Considerations would still be gastritis or ulcer, viral gastroenteritis though no diarrhea as yet, food related intolerance or other concerns. At this point treatment would be symptomatic for now with pain medicine and antiemetics and acid reducing medicine. We will see how he does with further courses of medicines here to decide intractability or not and whether he can be discharged home with oral medications or would need hospitalization. Departure - Departure Clinical Impression: Acute upper abdominal pain Nausea and vomiting Qualifiers: Vomiting type: unspecified Vomiting Intractability: intractable Qualified Code(s): R11.2 - Nausea with vomiting, unspecified Gastritis Qualifiers: Gastritis type: unspecified gastritis Chronicity: acute Gastritis bleeding: without bleeding Qualified Code(s): K29.00 - Acute gastritis without bleeding Condition: Stable Record reviewed to determine appropriate education?: Yes Instructions: ED Nausea Vomiting, ED Epigastric Pain UKO Prescriptions: HYDROcod/ACETAM 5/325 [Chapman 5/325] 1 ea PO Q6H PRN #12 tablet PRN Reason: Pain Famotidine [Pepcid] 20 mg PO BID #20 tablet Promethazine [Phenergan] 25 mg PO Q6H PRN #12 tab PRN Reason: Nausea / Vomiting Comments: Your CT scan and blood tests do not show an obvious acute process. There is no signs of heart attack or heart failure. Pancreas and liver are normal. Your blood count is stable. Your kidney function is at its baseline level of insufficiency. Your magnesium was slightly low so we gave an extra dose here. I am presuming there is some irritation of the stomach such as gastritis or ulcer given the location and no other obvious findings. Treat this with promethazine if needed for nausea. Tylenol or hydrocodone as needed for pain. Use the acid reducing med famotidine twice daily for the next week to 10 days. Butts food and good hydration the next several days. I would anticipate improvement in the next couple of days with lessening symptoms. Return or follow-up with your primary care if not improving well and return to the ER if worse despite the above medications. I transmitted your prescriptions to [facility] pharmacy as the base pharmacy will not be open tonight or over the weekend. My narcotic instructions I am prescribing a short course of narcotic pain medication for you. These are potentially dangerous and addictive medications that should be used carefully. These medications may constipate you. Take an [id number] stool softener such as docusate twice daily with plenty of water while taking these medications. If you go 24 hours without a bowel movement, take [id number] MiraLAX, per package instructions. Do not drink or drive while taking these medications. If you received narcotic or sedating medications while in the emergency department do not drive for 24 hours. Store this medication in a safe, secure place and out of reach of children. It is a violation of federal law to give or sell this medication to another person or to use in a manner other than prescribed. The ED will not refill narcotic prescriptions, including prescriptions lost or stolen. You can dispose of unwanted medications at the [facility]'s office or at several pharmacies such as [facility].
[2021-08-11] MEDS ORDERED: MAG HYDROX/AL HYDROX/SIMETH 30 ML UDC PO STA (17:17)
[2021-08-11] MEDS ORDERED: HYDROmorphone 1 MG/ML CARPUJECT IVP STA (17:17)
[2021-08-11] MEDS ORDERED: LIDOCAINE VISCOUS 2% 15 ML UDC MM STA (17:17)
[2021-08-11] MEDS ORDERED: ONDANSETRON 4 MG/2 ML VIAL IVP STA (17:21)
--- NOTE | 2021-08-11 17:24 | XRAY Report ---
PROCEDURE: Chest 1 View X-Ray INDICATIONS: Chest pain TECHNIQUE: One view of the chest was acquired. COMPARISON: April 19, 2021. FINDINGS: Surgical changes and devices: None. Lungs and pleura: Small right-sided pleural fluid collection. Consolidation right lung base which cou ld be compressive effects, aspiration or pneumonia. Cephalization of pulmonary vasculature concerning for CHF. Mediastinum: Mediastinal contours appear normal. Heart is enlarged Bones and chest wall: No suspicious bony lesions. Overlying soft tissues appear unremarkable. IMPRESSION: 1. Small right-sided pleural fluid collection. 2. Bibasilar consolidation which could represent atelectasis, aspiration or pneumonia. 3. Mild CHF. Reviewed by: Maria Del Rosario Rodrigues MD, PhD on 08/11/2021 5:23 PM PDT Approved by: Maria Del Rosario Rodrigues MD, PhD on 08/11/2021 5:23 PM PDT Station ID: [id number]
--- NOTE | 2021-08-11 18:07 | CT Report ---
PROCEDURE: Abdomen/Pelvis WO INDICATIONS: upper abd pain abrupt today; h/o ulcers TECHNIQUE: Noncontrast 5 mm thick sections acquired from the diaphragms to the symphysis. 5 mm coronal and sagi ttal reformats were then performed. For radiation dose reduction, the following was used: automated exposure control, adjustment of mA and/or kV according to patient size. COMPARISON: No prior CT of the abdomen and pelvis is available for comparison. Correlation is made w ith the overlapping portions of chest CT, 09/08/2020 FINDINGS: Image quality: Excellent. ABDOMEN: Lung bases: There is a small right-sided pleural effusion, which is clearly decreased in size compare d to the prior chest CT. Pacer leads are seen. Sternotomy wires are partially seen. Heart size is en larged. A small hiatal hernia is incidentally noted. Solid organs: Liver and spleen are normal in size. The gallbladder is prominent in size, without add itional focal gallbladder abnormality. Pancreas is normal in contours. No adrenal nodules. The kidneys appear atrophic. No stones or hydronephrosis can be seen. Peritoneum and bowel: Unenhanced bowel loops demonstrate normal wall thickness and caliber. No free fluid or air. No appendix can be seen, either normal or abnormal. No focal right lower quadrant infl ammatory changes are seen. Nodes and vessels: No retroperitoneal or mesenteric adenopathy by size criteria. Aorta and inferior vena cava are normal in caliber. Atherosclerotic calcification is seen. Miscellaneous: No ventral hernias. PELVIS: Genitourinary: Bladder wall thickness is normal. Mild prostate calcification can be seen. Miscellane ous: No inguinal adenopathy. There is a mild fat-containing right inguinal hernia present. Bones: No suspicious bony lesions. No vertebral body compression fractures. Mild dextroconvex scol iotic curvature is seen. Age-appropriate degenerative changes are seen. IMPRESSION: Prominent gallbladder size, without focal addition, or abnormality seen by CT. Right-sided pleural effusion, which has decreased in size compared to the prior. No dilated loops of bowel are seen.No appendix can be seen, either normal or abnormal. No focal right lower quadrant inflammatory changes are seen. Incidental note is made of: Sternotomy wires Cardiomegaly Pacer leads Small hiatal hernia Atrophic appearing kidneys bilaterally Dextroconvex scoliotic curvature Reviewed by: Aj Alaniz MD on 08/11/2021 5:06 PM AKDT Approved by: Aj Alaniz MD on 08/11/2021 5:06 PM JON Station ID: [id number]
[2021-08-11 18:11] LABS: BASOPHILS % (AUTO) 0.5 %; EOSINOPHILS % (AUTO) 0.5 %; HCT - HEMATOCRIT 34.8 % (42.0-52.0); LYMPHOCYTES # (AUTO) 0.5 10^3/uL (1.5-3.5); LYMPHOCYTES % (AUTO) 6.4 %; MEAN CORPUSCULAR HGB CONC 31.6 g/dL (32.0-36.0); MEAN PLATELET VOLUME 10.5 fL (7.4-11.4); MONOCYTES # (AUTO) 0.5 10^3/uL (0.0-1.0); MONOCYTES % (AUTO) 7.4 %; NEUTROPHILS # (AUTO) 6.1 10^3/uL (1.5-6.6); NEUTROPHILS % (AUTO) 83.8 %; PLT - PLATELET COUNT 151 10^3/uL (130-450); RED BLOOD COUNT 3.55 10^6/uL (4.70-6.10); RED CELL DISTRIBUTION WIDTH 16.8 % (12.0-15.0); WHITE BLOOD COUNT 7.3 x10^3/uL (4.8-10.8)
[2021-08-11 18:24] LABS: ALBUMIN 3.7 g/dL (3.2-5.5); ALBUMIN/GLOBULIN RATIO 1.1 (1.0-2.2); BILIRUBIN,TOTAL 0.9 mg/dL (0.2-1.0); CALCIUM 8.2 mg/dL (8.5-10.3); CREATININE 2.3 mg/dL (0.6-1.2); MAGNESIUM 1.1 mg/dL (1.7-2.8); POTASSIUM 3.5 mmol/L (3.5-5.0); TOTAL PROTEIN 7.1 g/dL (6.7-8.2)
[2021-08-11] MEDS ORDERED: MAGNESIUM SULFATE 2 GRAM 2 GM/50 ML BAG IV ONE (18:38)
[2021-08-11] MEDS ORDERED: DROPERIDOL 5 MG/2 ML VIAL IVP STA (18:51)
[2021-08-11] MEDS ORDERED: HYDROmorphone 0.5 MG/0.5 ML SYRINGE IVP STA (18:51)
[2021-08-11] MEDS ORDERED: FAMOTIDINE 20 MG/2 ML VIAL IVP STA (18:52)
[2021-08-11 20:02] VITALS: BP 109/62
--- NOTE | 2021-08-12 00:59 | HISTORY & PHYSICAL EXAMINATION ---
Chief Complaint - Chief Complaint Chief Complaint: Hypoxia/vomitting History of Present Illness - Admitted From Admitted From:: Emergency department - History Obtained From Records Reviewed: [facility] History obtained from: patient, ED doc Exam Limitations: Severely deaf History - Past Medical History Cardiovascular: reports: Hypertension, High cholesterol, Coronary artery disease, Atrial fibrillation, Murmur, Valve disorder, Other Respiratory: reports: Shortness of breath, Other (director acute pleural effusion since 2016, VATS 09/2020) Neuro: reports: Migraines Endocrine/Autoimmune: reports: None GI: reports: GERD, Ulcers (esophagus due to pill), Colon polyps : reports: Benign prostate hypertrophy, Retention (with VATS), Other (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 1 sister has osteoarthritis. 2 children are healthy Living Situation: With spouse/s.o. Social History Notes: for close to 64 years next week. 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 He used to smoke. 1-1/2 packs/day for 4 years and quit in 1968. No history of alcohol use. No history of recreational substance abuse. - Substance History Use: Uses substance without health or social issues: NONE - POLST Patient has POLST: No POLST Status: DNR Meds/Allgy - Home Medications Home Medications: Ambulatory Orders Medication Instructions Recorded Confirmed Metoprolol Succinate [Toprol Xl] 25 mg ORAL DAILY 08/15/16 08/11/21 Simvastatin 20 mg ORAL QPM 08/15/16 08/11/21 Ferrous Sulfate 1 tab PO DAILY 01/14/18 08/11/21 Losartan Potassium 12.5 mg PO DAILY 01/14/18 08/11/21 Pantoprazole [Protonix] 40 mg PO DAILY 01/14/18 08/11/21 Umeclidinium Brm/Vilanterol Tr 1 puffs INH DAILY 01/14/18 08/11/21 [Anoro Ellipta 62.5-25 Mcg INH] Tamsulosin [Flomax] 0.4 mg PO BID 04/19/21 08/11/21 Torsemide 40 mg PO DAILY 04/19/21 08/11/21 allopurinoL [Zyloprim] 100 mg PO DAILY 04/19/21 08/11/21 Famotidine [Pepcid] 20 mg PO BID #20 tablet 08/11/21 08/11/21 HYDROcod/ACETAM 5/325 [[place] 5/325] 1 ea PO Q6H PRN #12 tablet 08/11/21 08/11/21 Promethazine [Phenergan] 25 mg PO Q6H PRN #12 tab 08/11/21 08/11/21 - Allergies Allergies/Adverse Reactions: Allergies Allergy/AdvReac Type Severity Reaction Status Date / Time Iodine and Iodide Containing Allergy Rash Verified 08/11/21 21:58 Produc dabigatran etexilate AdvReac Unknown Verified 08/11/21 21:58 [From Pradaxa] tizanidine AdvReac syncope Verified 08/11/21 21:58 Review of Systems - Constitutional Constitutional: reports: Fatigue, Chills, Weakness - Respiratory Respiratory: reports: Cough, Wheezing, SOB with exertion - Gastrointestinal Gastrointestinal: reports: Nausea, Vomiting. 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 His shortness of breath severely limits his activty level as does his hx of arthritis. Exam - Vital Signs Vital Signs: Vital Signs x48h Temp Pulse Resp BP Pulse Ox 08/11/21 21:24 36.1 C L 75 14 109/62 96 08/11/21 20:00 75 14 109/62 96 08/11/21 19:39 77 17 100/59 L 100 08/11/21 19:20 70 16 112/71 100 08/11/21 19:08 72 16 112/71 92 08/11/21 18:30 70 20 96/57 L 98 08/11/21 17:55 70 25 H 108/66 94 08/11/21 17:30 106/63 08/11/21 17:27 105/67 08/11/21 17:14 70 16 98/69 97 Conclusion/Plan - Lab Results Fish Bones: 08/11/21 18:03 08/11/21 18:03
== END 2021-08-11 21:20 | disposition home or self-care (01) ==
LOC: EDUNIT# → ED 16:50
DX: K29.00 Acute gastritis without bleeding (principal); E83.42 Hypomagnesemia; K21.9 Gastro-esophageal reflux disease without esophagitis; I10 Essential (primary) hypertension; J90 Pleural effusion, not elsewhere classified; Z95.0 Presence of cardiac pacemaker; Z87.891 Personal history of nicotine dependence; Z85.51 Personal history of malignant neoplasm of bladder; Z66 Do not resuscitate
CPT/HCPCS: 36415; 71045; 74176; 80053; 83690; 83735; 83880; 84484; 85025; 93005; 96365; 96375; 99284; 99285; A9270; J1170

== ENCOUNTER 2021-08-11 21:48 | Inpatient (IN) | payer MEDICARE, OTHER ==
--- NOTE | 2021-08-11 21:51 | ED Physician Documentation ---
PD HPI NVD - Stated complaint Stated Complaint: SOA - History obtained from History obtained from: Patient - History of Present Illness Timing - onset: Enter time (16:00), Today Timing - details: Abrupt onset Pain level now: 2 Associated symptoms: Abdominal pain (RUQ/epigastric). No: Fever, Chest pain Improved by: Other (no ameliorating factors) Worsened by: Eating Recently seen: Emergency Dept - Additonal information Additional information: patient presented to this ED earlier today for c/o epigastric pain of sudden onset, approximately 4 PM today, with nausea and vomiting. Blood tests were reassuring without diagnostic nor concerning findings; results include elevated bun/creatinine that approximate his baseline (previous) results. cxr showed small right sided pleural effusion which is chronic, and CT A/P did not have specific, diagnostic, nor emergently concerning findings (prominent gallbladder without additional findings to suggest acute pathology). He was given multiple medications which seemed to improve his symptoms, specifically hydromorphone, maalox/viscous lidocaine, zofran, pepcid, and inapsine. He was given PO challenge, tolerated small sips of liquids but was comfortable with d/c home at that point. He was in waiting room awaiting ride when he again vomited and immediately became acutely dyspneic and thus is brought back into ED for reevaluation. He is in obvious respiratory distress and requires my immediate attention. Review of Systems Constitutional: denies: Fever, Chills, Sweats Cardiac: reports: Reviewed and negative Respiratory: reports: Dyspnea (dyspnea started after he vomited in waiting room; was not experiencing dyspnea when evalutaed earlier tonight), Cough (started when he vomited in waiting room) GI: reports: Abdominal Pain, Nausea, Vomiting. 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, Grade II/III, TCC, WADE, s/p BCG) HEENT: Chronic hearing loss Psych: None Musculoskeletal: Osteoarthritis, Gout Derm: None, Other - Past Surgical History Past Surgical History: Yes General: Colonoscopy, EGD, Other Ortho: Other Cardiovascular: Valve replacement, Pacemaker, Cardiac catheterization, Other HEENT: Cataracts (08/2006, 07/2008), Other (laser surgery eyes 11/2014) Derm: Skin cancer surgery - Present Medications Home Medications: Ambulatory Orders Medication Instructions Recorded Confirmed Metoprolol Succinate [Toprol Xl] 25 mg ORAL DAILY 08/15/16 08/11/21 Simvastatin 20 mg ORAL QPM 08/15/16 08/11/21 Ferrous Sulfate 1 tab PO DAILY 01/14/18 08/11/21 Losartan Potassium 12.5 mg PO DAILY 01/14/18 08/11/21 Pantoprazole [Protonix] 40 mg PO DAILY 01/14/18 08/11/21 Umeclidinium Brm/Vilanterol Tr 1 puffs INH DAILY 01/14/18 08/11/21 [Anoro Ellipta 62.5-25 Mcg INH] Tamsulosin [Flomax] 0.4 mg PO BID 04/19/21 08/11/21 Torsemide 40 mg PO DAILY 04/19/21 08/11/21 allopurinoL [Zyloprim] 100 mg PO DAILY 04/19/21 08/11/21 Famotidine [Pepcid] 20 mg PO BID #20 tablet 08/11/21 08/11/21 HYDROcod/ACETAM 5/325 [[place] 5/325] 1 ea PO Q6H PRN #12 tablet 08/11/21 08/11/21 Promethazine [Phenergan] 25 mg PO Q6H PRN #12 tab 08/11/21 08/11/21 - Allergies Allergies/Adverse Reactions: Allergies Allergy/AdvReac Type Severity Reaction Status Date / Time Iodine and Iodide Containing Allergy Rash Verified 08/11/21 21:58 Produc dabigatran etexilate AdvReac Unknown Verified 08/11/21 21:58 [From Pradaxa] tizanidine AdvReac syncope Verified 08/11/21 21:58 - Social History Does the pt smoke?: No Smoking Status: Former smoker Does the pt have substance abuse?: No - POLST Patient has POLST: No POLST Status: DNR PD ED PE NORMAL - Vitals Vital signs reviewed: Yes - General General: Alert and oriented X 3, Well developed/nourished, Other (tachypneic, speaking in abbreviated/shortened sentences, grossly audible rhonchi; very hard of hearing (reads lips well)) - Neck Neck: Supple, no meningeal sign - Cardiac Cardiac: RRR - Abdomen Abdomen: Soft, Other (mild RUQ and epigastric TTP without rebound or guarding) - Derm Derm: Normal color, Warm and dry - Extremities Extremities: No edema - Neuro Neuro: Alert and oriented X 3 Eye Opening: Spontaneous Motor: Obeys Commands Verbal: Oriented GCS Score: 15 PD ED PE EXPANDED - Respiratory Respiratory: Distress, Labored, Rhonchi (bilateral scattered rhonchi) Results - Vitals Vitals: Vital Signs - 24 hr 08/11/21 08/11/21 08/11/21 21:54 22:00 22:56 Temperature 36.6 C Heart Rate 63 70 Respiratory 20 41 H Rate Blood Pressure 120/97 H 105/58 L O2 Saturation 91 L 98 98 08/12/21 08/12/21 08/12/21 00:00 00:24 00:32 Temperature 37.1 C Heart Rate 70 70 Respiratory 26 H 24 22 Rate Blood Pressure 117/62 112/62 O2 Saturation 96 93 86 L Oxygen O2 Source Nasal cannula Oxygen Flow Rate 3 - Labs Labs: Laboratory Tests 08/11/21 08/11/21 08/11/21 22:06 22:06 22:43 WBC 11.2 H RBC 3.87 L Hgb 12.0 L Hct 38.4 L MCV 99.2 H MCH 31.0 MCHC 31.3 L RDW 16.7 H Plt Count 175 MPV 10.3 Neut # (Auto) 9.4 H Lymph # (Auto) 0.5 L [place] # (Auto) 0.7 Eos # (Auto) 0.4 Baso # (Auto) 0.1 Absolute Nucleated RBC 0.00 Nucleated RBC % 0.0 Sodium 140 Potassium 3.8 Chloride 99 L Carbon Dioxide 26 Anion Gap 15.0 H BUN 26 H Creatinine 2.3 H Estimated GFR (MDRD) 27 L Glucose 164 H Calcium 8.7 Magnesium 1.7 Total Bilirubin 1.6 H AST 37 ALT 19 Alkaline Phosphatase 174 H Total Protein 7.8 Albumin 4.1 Globulin 3.7 Albumin/Globulin Ratio 1.1 Lipase 30 Nasal Adenovirus (PCR) NOT DETECTED Nasal B. parapertussis DNA (PCR) NOT DETECTED Nasal Coronavir 229E PCR NOT DETECTED Nasal Coronavir HKU1 PCR NOT DETECTED Nasal Coronavir NL63 PCR NOT DETECTED Nasal Coronavir OC43 PCR NOT DETECTED Nasal Enterovir/Rhinovir PCR NOT DETECTED Nasal Influenza B PCR NOT DETECTED Nasal Influenza A PCR NOT DETECTED Nasal Parainfluen 1 PCR NOT DETECTED Nasal Parainfluen 2 PCR NOT DETECTED Nasal Parainfluen 3 PCR NOT DETECTED Nasal Parainfluen 4 PCR NOT DETECTED Nasal RSV (PCR) NOT DETECTED Nasal B.pertussis DNA PCR NOT DETECTED Nasal C.pneumoniae (PCR) NOT DETECTED Valeriy Human Metapneumo PCR NOT DETECTED Nasal M.pneumoniae (PCR) NOT DETECTED Nasal SARS-CoV-2 (PCR) NOT DETECTED - Rads (name of study) chest xray Radiology: Prelim report reviewed, See rad report PD MEDICAL DECISION MAKING - ED course Complexity details: reviewed old records, reviewed results, re-evaluated patient, considered differential, d/w patient ED course: patient had just been discharged to waiting room after considerable ED testing for abdominal pain, n/v. He is brought back into ED after vomiting in waiting room with immediate severe dyspnea, suggestive of aspiration. He slowly but steadily improves during ED stay regarding his dyspnea. He had intermittent recurrence of his nausea but no further vomiting and did not require further analgesia for his abdominal pain. However, his pulse ox would drop to 85-86 percent when on room air (corrects to 95-98% with 3 liters [place] oxygen which was placed on arrival due to severe dyspnea). He also developed fever late in ED stay. Plan is to admit for further observation until he no longer has oxygen requirement and is clinically appropriate for discharge. Departure - Departure Disposition: ED Place in Observation Clinical Impression: Aspiration into airway Qualifiers: Encounter type: initial encounter Qualified Code(s): T17.908A - Unspecified foreign body in respiratory tract, part unspecified causing other injury, initial encounter Vomiting Qualifiers: Vomiting type: unspecified Vomiting Intractability: intractable Nausea presence: with nausea Qualified Code(s): R11.2 - Nausea with vomiting, unspecified Condition: Good Discharge Date/Time: 08/12/21 01:30
[2021-08-11 22:10] LABS: BASOPHILS # (AUTO) 0.1 10^3/uL (0.0-0.1); BASOPHILS % (AUTO) 0.5 %; EOSINOPHILS # (AUTO) 0.4 10^3/uL (0.0-0.7); EOSINOPHILS % (AUTO) 3.1 %; HCT - HEMATOCRIT 38.4 % (42.0-52.0); LYMPHOCYTES # (AUTO) 0.5 10^3/uL (1.5-3.5); LYMPHOCYTES % (AUTO) 4.4 %; MEAN CORPUSCULAR HGB CONC 31.3 g/dL (32.0-36.0); MEAN CORPUSCULAR VOLUME 99.2 fL (80.0-94.0); MEAN PLATELET VOLUME 10.3 fL (7.4-11.4); MONOCYTES # (AUTO) 0.7 10^3/uL (0.0-1.0); MONOCYTES % (AUTO) 6.6 %; NEUTROPHILS # (AUTO) 9.4 10^3/uL (1.5-6.6); NEUTROPHILS % (AUTO) 84.4 %; PLT - PLATELET COUNT 175 10^3/uL (130-450); RED BLOOD COUNT 3.87 10^6/uL (4.70-6.10); RED CELL DISTRIBUTION WIDTH 16.7 % (12.0-15.0); WHITE BLOOD COUNT 11.2 x10^3/uL (4.8-10.8)
[2021-08-11] MEDS ORDERED: SODIUM CHLORIDE 0.9% 1,000 ML IV STA (22:16)
[2021-08-11] MEDS ORDERED: ONDANSETRON 4 MG/2 ML VIAL IVP STA (22:16)
[2021-08-11 22:25] LABS: ALBUMIN 4.1 g/dL (3.2-5.5); ALBUMIN/GLOBULIN RATIO 1.1 (1.0-2.2); BILIRUBIN,TOTAL 1.6 mg/dL (0.2-1.0); CALCIUM 8.7 mg/dL (8.5-10.3); CREATININE 2.3 mg/dL (0.6-1.2); MAGNESIUM 1.7 mg/dL (1.7-2.8); POTASSIUM 3.8 mmol/L (3.5-5.0); TOTAL PROTEIN 7.8 g/dL (6.7-8.2)
--- NOTE | 2021-08-11 22:49 | XRAY Report ---
PROCEDURE: Chest 2 View X-Ray INDICATIONS: dyspnea, possible aspiration TECHNIQUE: 2 view(s) of the chest. COMPARISON: Earlier in the day on 08/11/2021, 04/19/2021, 11/25/2020 FINDINGS: Surgical changes and devices: A pacer device can be seen. Sternotomy changes are noted. Lungs and pleura: A moderately sized right-sided pleural effusion is seen. No left-sided pleural eff usion is seen. No pneumothorax is seen. Mild generalized interstitial prominence can be seen. Mediastinum: Mediastinal contours are normal. Heart size is moderately enlarged. Bones and chest wall: No suspicious bony abnormalities. Postoperative and degenerative changes are s een. Soft tissues appear unremarkable. IMPRESSION: Moderately sized right-sided pleural effusion with cardiomegaly and interstitial promine nce. CHF is suspected. The imaging findings are similar to priors. Reviewed by: Aj Alaniz MD on 08/11/2021 9:47 PM JON Approved by: Aj Alaniz MD on 08/11/2021 9:47 PM JON Station ID: [email or web address]
[2021-08-11 23:41] LABS: CORONAVIRUS 229E-RESP PCR NOT DETECTED; CORONAVIRUS HKU1-RESP PCR NOT DETECTED; CORONAVIRUS NL63-RESP PCR NOT DETECTED; CORONAVIRUS OC43-RESP PCR NOT DETECTED; HUMAN METAPNEUMOVIRUS NOT DETECTED; SARS-CoV-2 -RESP PCR PANEL NOT DETECTED
[2021-08-11 23:42] LABS: B. PARAPERTUSSIS- RESP PCR PAN NOT DETECTED; B. PERTUSSIS- RESP PCR PANEL NOT DETECTED; C. PNEUMONIAE- RESP PCR PANEL NOT DETECTED; INFLUENZA A- RESP PCR PANEL NOT DETECTED; INFLUENZA B - RESP PCR PANEL NOT DETECTED; M. PNEUMONIAE- RESP PCR PANEL NOT DETECTED; PARAINFLUENZA VIRUS 1 NOT DETECTED; PARAINFLUENZA VIRUS 2 NOT DETECTED; PARAINFLUENZA VIRUS 3 NOT DETECTED; PARAINFLUENZA VIRUS 4 NOT DETECTED; RHINOVIRUS/ENTEROVIRUS NOT DETECTED; RSV- RESP PCR PANEL NOT DETECTED
[2021-08-12] MEDS ORDERED: PROCHLORPERAZINE 10 MG/2 ML VIAL IVP PRN (00:46)
[2021-08-12] MEDS ORDERED: ONDANSETRON 4 MG/2 ML VIAL IVP PRN (00:46)
[2021-08-12] MEDS ORDERED: ONDANSETRON ODT 4 MG TABLET TL PRN (00:46)
[2021-08-12] MEDS ORDERED: PROMETHAZINE 25 MG TABLET PO PRN (00:55)
[2021-08-12] MEDS ORDERED: LACTATED RINGERS 1,000 ML IV SCH (01:00)
--- NOTE | 2021-08-12 01:34 | HISTORY & PHYSICAL EXAMINATION ---
Chief Complaint - Chief Complaint Chief Complaint: Hypoxia/vomitting History of Present Illness - Admitted From Admitted From:: Emergency department - History Obtained From Records Reviewed: [facility] History obtained from: Patient and ED provider Exam Limitations: Severe hearing loss and patient comfort level - History of Present Illness HPI Comment/Other: This 85 year old male with history of Pulmonary HTN, iron deficiency anemia, htn, CAD, an A-fib presented to ED earlier today for abdominal pain, nausea, and vomiting thought to be attributed to a type of gastritis. Upon discharging the patient with promethazine and pain medication the patient vomited in the lobby and was readmitted to the ED. A pleural effusion was noted on x-ray that has been previously documented and that he normally suffers SOB from along with his pulmonary htn. The patient was given oxygen and labs were drawn in the ED. He is admitted to the floor for hypoxia. The patient is afebrile, has an elevated WBC count, and appears slightly hypoxic. His HR is 70, BP is currently 90/40, and O2 saturation of 98% on 3L. He is severely hard of hearing, but can answer questions appropriately. His baseline and ROS is difficult to obtain due his hea ring loss and level of comfort at this time. History - Past Medical History Cardiovascular: reports: Hypertension, High cholesterol, Coronary artery disease, Atrial fibrillation, Murmur, Valve disorder, Other Respiratory: reports: Shortness of breath, Other Neuro: reports: Migraines Endocrine/Autoimmune: reports: None GI: reports: GERD, Ulcers, Colon polyps : reports: Benign prostate hypertrophy, Retention, Other HEENT: reports: Chronic hearing loss Psych: reports: None Musculoskeletal: reports: Osteoarthritis, Gout Derm: reports: None, Other MRSA Hx?: No - Past Surgical History General: reports: Colonoscopy, EGD, Other Ortho: reports: Other Cardiovascular: reports: Valve replacement, Pacemaker, Cardiac catheterization, Other HEENT: reports: Cataracts, Other Derm: reports: Skin cancer surgery - Family & Social History Family History Comment/Other: Dad at age 78 of coronary artery disease. 1 sister has osteoarthritis. 2 children are healthy Living Situation: With spouse/s.o. Social History Notes: for close to 64 years next week. 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 in the [facility] area. He used to smoke. 1-1/2 packs/day for 4 years and quit in 1968. No history of alcohol use. No history of recreational substance abuse. - Substance History Use: Uses substance without health or social issues: NONE - POLST Patient has POLST: No POLST Status: DNR Meds/Allgy - Home Medications Home Medications: Ambulatory Orders Medication Instructions Recorded Confirmed Metoprolol Succinate [Toprol Xl] 25 mg ORAL DAILY 08/15/16 08/11/21 Simvastatin 20 mg ORAL QPM 08/15/16 08/11/21 Ferrous Sulfate 1 tab PO DAILY 01/14/18 08/11/21 Losartan Potassium 12.5 mg PO DAILY 01/14/18 08/11/21 Pantoprazole [Protonix] 40 mg PO DAILY 01/14/18 08/11/21 Umeclidinium Brm/Vilanterol Tr 1 puffs INH DAILY 01/14/18 08/11/21 [Anoro Ellipta 62.5-25 Mcg INH] Tamsulosin [Flomax] 0.4 mg PO BID 04/19/21 08/11/21 Torsemide 40 mg PO DAILY 04/19/21 08/11/21 allopurinoL [Zyloprim] 100 mg PO DAILY 04/19/21 08/11/21 Famotidine [Pepcid] 20 mg PO BID #20 tablet 08/11/21 08/11/21 HYDROcod/ACETAM 5/325 [Bruce 5/325] 1 ea PO Q6H PRN #12 tablet 08/11/21 08/11/21 Promethazine [Phenergan] 25 mg PO Q6H PRN #12 tab 08/11/21 08/11/21 - Allergies Allergies/Adverse Reactions: Allergies Allergy/AdvReac Type Severity Reaction Status Date / Time Iodine and Iodide Containing Allergy Rash Verified 08/11/21 21:58 Produc dabigatran etexilate AdvReac Unknown Verified 08/11/21 21:58 [From Pradaxa] tizanidine AdvReac syncope Verified 08/11/21 21:58 Review of Systems - Constitutional Constitutional: reports: Fatigue, Chills, Weakness - Respiratory Respiratory: reports: Cough, Wheezing, SOB with exertion - Gastrointestinal Gastrointestinal: denies: Abdominal pain - All Other Systems All Other Systems: reports: Other (No more could be completed due to hearing loss and patient comfort level) Prior Level of Functionality: Prior level of functioning is difficult to guage based on limited hx. Patient does have dyspnea on exertion at home. Limits his general activity level. Exam - Vital Signs Reviewed Vital Signs: Yes Vital Signs: Vital Signs x48h Temp Pulse Resp BP Pulse Ox 08/12/21 01:09 38.1 C H 08/12/21 00:32 22 86 L 08/12/21 00:24 70 24 112/62 93 08/12/21 00:00 37.1 C 70 26 H 117/62 96 08/11/21 22:56 70 41 H 105/58 L 98 08/11/21 22:00 98 08/11/21 21:54 36.6 C 63 20 120/97 H 91 L - Physical Exam General Appearance: positive: Mild distress (Appears uncomfortable), Other (Appe ars tired and frail. Answers questions appropriately with eyes closed and follows commands.) Eyes Bilateral: positive: PERRL Neck: positive: No JVD, Trachea midline. negative: Lymphadenopathy (R), Lymphadenopathy (L) Respiratory: positive: Chest non-tender, Wheezes (Mild wheezes) Cardiovascular: positive: Regular rate & rhythm, Systolic murmur Peripheral Pulses: positive: 2+ Abdomen: positive: Non-tender, Nml bowel sounds, No distention (Mild di stention). negative: Guarding Skin: positive: Color nml Extremities: positive: Pedal edema Neurologic/Psychiatric: positive: Oriented x3 (Is oriented, but slightly slow to respond), CN's nml (2-12), Motor nml, Sensation nml Conclusion/Plan - Problem List (1) Hypoxia Conclusion/Plan: This patients hypoxia is likely due to a combination of issues. This includes his pulmonary hypertension, chronic anemia, current illness stressing his system, pleural effusion, and possible aspiration pneumonia from vomiting. His current oxygenation status is fairly good with 98% on 3L via nasal canula with a RR of 22. Currently he is stable and will be observed over night to see if his WBC continues to elevate, develops a fever, or any further signs of pneumonia. Will continue to provide O2 and give home meds. Will order a repeat C-XRAY and BMP. Will reassess in the AM for the need for abx therapy. (2) Chemical pneumonitis Conclusion/Plan: The patient has likely aspirated with his vomiting and has probably developed a chemical pneuomonitis. This is evidenced by his increased RR, hypoxia, and C- Xray, and clinical presentation. The patient doesn't appear to have pneumonia with him being a-febrile, chest x ray results, and clinical presentation. However, this does not mean is not developing pneumonia or an empyema that could necessitate the use of abx. At this time the patient does not need antibiotics. As condition continues to evolve he may need antibiotic therapy in the morning. Will repeat c xray, BMP, and other labs in the morning to reassess. (3) Pulmonary hypertension Conclusion/Plan: This patient has documented pulmonary htn. This is probably contributory to his current hypoxemic state. He is currently being treated with furosemide for this condition. Due to his current status he is need of fluids. However, with his pulmonary htn fluid overload needs to be avoided. He is to receive 83ml of Lactated Ringer per hour. Will reassess in the morning. (4) Vomiting Conclusion/Plan: This patient is likely vomiting from a type of gastritis. Originally a biliary cause was suspected, but his CT was negative for biliary abnormalities. His appendix, pancreas, and kidneys also appeared normal on CT. Will continue to give lactated ringers as previously indicated, nausea medication as needed, and other symptomatic relief. Will reassess labs in the morning. Qualifiers: Vomiting type: unspecified Vomiting Intractability: intractable Nausea presence: with nausea Qualified Code(s): R11.2 - Nausea with vomiting, unspecified (5) Chronic kidney disease, stage IV (severe) Conclusion/Plan: Stable at this time. Repeat labs in the morning. Continue to avoid nephrotoxic agents. - Lab Results Fish Bones: 08/11/21 22:06 08/11/21 22:06 Other Lab Results: WBC 11.2 x10^3/uL (4.8-10.8) H 08/11/21 22:06 RBC 3.87 10^6/uL (4.70-6.10) L 08/11/21 22:06 Hgb 12.0 g/dL (14.0-18.0) L 08/11/21 22:06 Hct 38.4 % (42.0-52.0) L 08/11/21 22:06 MCV 99.2 fL (80.0-94.0) H 08/11/21 22:06 MCH 31.0 pg (27.0-31.0) 08/11/21 22:06 MCHC 31.3 g/dL (32.0-36.0) L 08/11/21 22:06 RDW 16.7 % (12.0-15.0) H 08/11/21 22:06 Plt Count 175 10^3/uL (130-450) 08/11/21 22:06 MPV 10.3 fL (7.4-11.4) 08/11/21 22:06 Neut # (Auto) 9.4 10^3/uL (1.5-6.6) H 08/11/21 22:06 Lymph # (Auto) 0.5 10^3/uL (1.5-3.5) L 08/11/21 22:06 Gilliam # (Auto) 0.7 10^3/uL (0.0-1.0) 08/11/21 22:06 Eos # (Auto) 0.4 10^3/uL (0.0-0.7) 08/11/21 22:06 Baso # (Auto) 0.1 10^3/uL (0.0-0.1) 08/11/21 22:06 Absolute Nucleated RBC 0.00 x10^3/uL 08/11/21 22:06 Nucleated RBC % 0.0 /100WBC 08/11/21 22:06 Sodium 140 mmol/L (135-145) 08/11/21 22:06 Potassium 3.8 mmol/L (3.5-5.0) 08/11/21 22:06 Chloride 99 mmol/L (101-111) L 08/11/21 22:06 Carbon Dioxide 26 mmol/L (21-32) 08/11/21 22:06 Anion Gap 15.0 (6-13) H 08/11/21 22:06 BUN 26 mg/dL (6-20) H 08/11/21 22:06 Creatinine 2.3 mg/dL (0.6-1.2) H 08/11/21 22:06 Estimated GFR (MDRD) 27 (>89) L 10/01/21 22:06 Glucose 164 mg/dL (70-100) H 08/11/21 22:06 Calcium 8.7 mg/dL (8.5-10.3) 08/11/21 22:06 Magnesium 1.7 mg/dL (1.7-2.8) 08/11/21 22:06 Total Bilirubin 1.6 mg/dL (0.2-1.0) H 08/11/21 22:06 AST 37 IU/L (10-42) 08/11/21 22:06 ALT 19 IU/L (10-60) 08/11/21 22:06 Alkaline Phosphatase 174 IU/L (42-121) H 08/11/21 22:06 Total Protein 7.8 g/dL (6.7-8.2) 08/11/21 22:06 Albumin 4.1 g/dL (3.2-5.5) 08/11/21 22:06 Globulin 3.7 g/dL (2.1-4.2) 08/11/21 22:06 Albumin/Globulin Ratio 1.1 (1.0-2.2) 08/11/21 22:06 Lipase 30 U/L (22-51) 08/11/21 22:06 Nasal Adenovirus (PCR) NOT DETECTED 08/11/21 22:43 Nasal B. parapertussis DNA (PCR) NOT DETECTED 08/11/21 22:43 Nasal Coronavir 229E PCR NOT DETECTED 08/11/21 22:43 Nasal Coronavir HKU1 PCR NOT DETECTED 08/11/21 22:43 Nasal Coronavir NL63 PCR NOT DETECTED 08/11/21 22:43 Nasal Coronavir OC43 PCR NOT DETECTED 08/11/21 22:43 Nasal Enterovir/Rhinovir PCR NOT DETECTED 08/11/21 22:43 Nasal Influenza B PCR NOT DETECTED 08/11/21 22:43 Nasal Influenza A PCR NOT DETECTED 08/11/21 22:43 Nasal Parainfluen 1 PCR NOT DETECTED 08/11/21 22:43 Nasal Parainfluen 2 PCR NOT DETECTED 08/11/21 22:43 Nasal Parainfluen 3 PCR NOT DETECTED 08/11/21 22:43 Nasal Parainfluen 4 PCR NOT DETECTED 08/11/21 22:43 Nasal RSV (PCR) NOT DETECTED 08/11/21 22:43 Nasal B.pertussis DNA PCR NOT DETECTED 08/11/21 22:43 Nasal C.pneumoniae (PCR) NOT DETECTED 08/11/21 22:43 Valeriy Human Metapneumo PCR NOT DETECTED 08/11/21 22:43 Nasal M.pneumoniae (PCR) NOT DETECTED 08/11/21 22:43 Nasal SARS-CoV-2 (PCR) NOT DETECTED 08/11/21 22:43 - Diagnostic Imaging Results Diagnostic Imaging Results: positive: Final report reviewed
[2021-08-12] MEDS: SODIUM CHLORIDE FLUSH 0.9% 10 ML SYRINGE IVP SCH ×3 (01:55→17:03)
[2021-08-12 07:02] LABS: CALCIUM 8.3 mg/dL (8.5-10.3); CREATININE 2.6 mg/dL (0.6-1.2); POTASSIUM 3.4 mmol/L (3.5-5.0)
[2021-08-12 07:23] LABS: BASOPHILS % (AUTO) 0.4 %; EOSINOPHILS % (AUTO) 2.7 %; HCT - HEMATOCRIT 33.8 % (42.0-52.0); HGB - HEMOGLOBIN 10.9 g/dL (14.0-18.0); LYMPHOCYTES % (AUTO) 1.6 %; MEAN CORPUSCULAR HEMOGLOBIN 31.6 pg (27.0-31.0); MEAN CORPUSCULAR HGB CONC 32.2 g/dL (32.0-36.0); MEAN PLATELET VOLUME 12.4 fL (7.4-11.4); MONOCYTES % (AUTO) 7.4 %; NEUTROPHILS % (AUTO) 86.9 %; PLT - PLATELET COUNT 135 10^3/uL (130-450); RED BLOOD COUNT 3.45 10^6/uL (4.70-6.10); RED CELL DISTRIBUTION WIDTH 16.7 % (12.0-15.0); WHITE BLOOD COUNT 9.2 x10^3/uL (4.8-10.8)
--- NOTE | 2021-08-12 07:47 | PHARMACY PROGRESS NOTE ---
- Best Possible Medication History Admit Date and Time: 08/12/21 0046 Processed by: Pharmacy Medication History completed: Yes Patient Interview: Completed Secondary Source(s): Physician records, Pharmacy records, Insurance records ([facility] OBTAINED AND PROCESSED BY PROVIDER) As the person ultimately responsible for medication therapy, providers are able to order a medication from an existing home medication list in [facility] via the "Reconcile Routine" prior to Confirmation of that medication by student support services director. Such practice is discouraged except when the physician, in their clinical judgment, deems that a medical need exists for a medication without regard to previous use.
[2021-08-12] MEDS ORDERED: PIPERACILLIN/TAZOBACTAM 3.375 GM in SODIUM CHLORIDE 0.9% MINIBAG 100 ML IV ONE (08:00)
[2021-08-12] MEDS ORDERED: D5.45NS W/20 MEQ KCL 1,000 ML IV SCH ×3 (08:00→15:18)
[2021-08-12 08:03] LABS: ABNORMAL LYMPHS % (MANUAL) 0 %; BAND NEUTROPHILS % (MANUAL) 37 %; LYMPHOCYTES # (MANUAL) 0.4 10^3/uL (1.5-3.5); LYMPHOCYTES % (MANUAL) 3 %; MONOCYTES # (MANUAL) 0.6 10^3/uL (0.0-1.0); NEUTROPHILS # (MANUAL) 8.2 10^3/uL (1.5-6.6); PLATELET ESTIMATE, MANUAL NORMAL (130-450,000) (NORMAL); PLATELET MORPHOLOGY NORMAL APPEARANCE (NORMAL); REACTIVE LYMPHS % (MANUAL) 1 %
[2021-08-12 08:04] LABS: DIFFERENTIAL COMMENT MANUAL DIFFERENTIAL
[2021-08-12] MEDS ORDERED: METOPROLOL SUCCINATE 25 MG TABLET PO SCH (09:00)
[2021-08-12] MEDS ORDERED: TORSEMIDE 20 MG TABLET PO SCH ×2 (09:00→09:25)
[2021-08-12] MEDS ORDERED: LOSARTAN 50 MG TABLET PO SCH ×2 (09:00→09:24)
[2021-08-12] MEDS: SACCHAROMYCES BOULARDII 250 MG CAPSULE PO SCH ×2 (09:30→17:03)
[2021-08-12] MEDS: PANTOPRAZOLE 40 MG TABLET PO SCH (09:30)
[2021-08-12] MEDS: TAMSULOSIN 0.4 MG CAPSULE PO SCH ×2 (09:31→20:34)
[2021-08-12] MEDS: FAMOTIDINE 20 MG TABLET PO SCH ×2 (09:31→20:34)
[2021-08-12] MEDS: PIPERACILLIN/TAZOBACTAM 3.375 GM in SODIUM CHLORIDE 0.9% MINIBAG 100 ML IV SCH ×2 (11:48→20:27)
--- NOTE | 2021-08-12 12:38 | XRAY Report ---
PROCEDURE: Chest 1 View X-Ray INDICATIONS: chemical pneumonitis TECHNIQUE: One view of the chest was acquired. COMPARISON: August 11, 2021 FINDINGS: Surgical changes and devices: None. Lungs and pleura: Moderate right pleural effusion has enlarged from the prior exam. Left lung and ple ural space clear. Mediastinum: Mediastinal contours appear normal. Heart size is enlarged. Is a dual-chamber left-side d pacemaker present. Midline sternotomy wires noted. Bones and chest wall: No suspicious bony lesions. Overlying soft tissues appear unremarkable. IMPRESSION: Enlarging moderate right pleural effusion Reviewed by: Thomas Lunsford MD on 08/12/2021 11:36 AM JON Approved by: Thomas Lunsford MD on 08/12/2021 11:36 AM AKHORTENSIA Station ID: [id number]
[2021-08-12] MEDS ORDERED: POTASSIUM CHLORIDE 20 MEQ TABLET PO ONE (15:25)
[2021-08-12] MEDS: LACTATED RINGERS 1,000 ML IV SCH (15:49)
[2021-08-12] MEDS ORDERED: SODIUM CHLORIDE 0.9% 500 ML IV ONE (16:49)
[2021-08-12] MEDS ORDERED: LACTATED RINGERS 500 ML IV ONE (22:42)
[2021-08-13] MEDS: SODIUM CHLORIDE FLUSH 0.9% 10 ML SYRINGE IVP SCH ×3 (00:31→16:30)
[2021-08-13] MEDS: PIPERACILLIN/TAZOBACTAM 3.375 GM in SODIUM CHLORIDE 0.9% MINIBAG 100 ML IV SCH ×3 (03:50→20:35)
[2021-08-13 07:12] LABS: BASOPHILS % (AUTO) 0.3 %; EOSINOPHILS % (AUTO) 0.3 %; HCT - HEMATOCRIT 33.1 % (42.0-52.0); HGB - HEMOGLOBIN 10.5 g/dL (14.0-18.0); LYMPHOCYTES # (AUTO) 0.3 10^3/uL (1.5-3.5); MEAN CORPUSCULAR HGB CONC 31.7 g/dL (32.0-36.0); MEAN CORPUSCULAR VOLUME 97.6 fL (80.0-94.0); MEAN PLATELET VOLUME 12.4 fL (7.4-11.4); MONOCYTES # (AUTO) 0.7 10^3/uL (0.0-1.0); MONOCYTES % (AUTO) 7.5 %; NEUTROPHILS # (AUTO) 8.5 10^3/uL (1.5-6.6); NEUTROPHILS % (AUTO) 87.8 %; PLT - PLATELET COUNT 113 10^3/uL (130-450); RED BLOOD COUNT 3.39 10^6/uL (4.70-6.10); RED CELL DISTRIBUTION WIDTH 17.2 % (12.0-15.0); WHITE BLOOD COUNT 9.7 x10^3/uL (4.8-10.8)
[2021-08-13 07:16] LABS: CALCIUM 8.4 mg/dL (8.5-10.3); CREATININE 2.7 mg/dL (0.6-1.2); POTASSIUM 4.3 mmol/L (3.5-5.0)
[2021-08-13] MEDS: PANTOPRAZOLE 40 MG TABLET PO SCH (08:20)
[2021-08-13] MEDS: TAMSULOSIN 0.4 MG CAPSULE PO SCH ×2 (08:20→20:35)
[2021-08-13] MEDS: oxyCODONE 5 MG TABLET PO PRN ×4 (08:20→20:35)
[2021-08-13] MEDS: SACCHAROMYCES BOULARDII 250 MG CAPSULE PO SCH ×2 (08:21→16:30)
[2021-08-13] MEDS: FAMOTIDINE 20 MG TABLET PO SCH ×2 (08:21→20:35)
[2021-08-13] MEDS: LACTATED RINGERS 1,000 ML IV SCH ×3 (08:22→20:39)
[2021-08-13] MEDS: ACETAMINOPHEN 325 MG TABLET PO PRN ×3 (12:16→20:34)
[2021-08-13] MEDS: SODIUM CHLORIDE FLUSH 0.9% 10 ML SYRINGE IVP PRN (12:17)
[2021-08-13 12:27] LABS: GLUCOSE, URINE (UA) NEGATIVE (NEGATIVE); KETONES,URINE (UA) TRACE mg/dL (NEGATIVE); LEUKOCYTE ESTERASE, URINE NEGATIVE (NEGATIVE); NITRITE,URINE NEGATIVE (NEGATIVE); OCCULT BLOOD,URINE SMALL (NEGATIVE); PH,URINE 5.5 PH (5.0-7.5); PROTEIN,URINE TRACE mg/dL (NEGATIVE); UROBILINOGEN,URINE 0.2 (NORMAL) E.U./dL (NORMAL)
[2021-08-13 12:39] LABS: BILIRUBIN,URINE NEGATIVE (NEGATIVE); CLARITY,URINE CLEAR (CLEAR); ICTOTEST,URINE NEGATIVE
[2021-08-13 12:53] LABS: AMORPHOUS SEDIMENT,UR Moderate /LPF; BACTERIA,URINE Moderate /HPF (None Seen); CASTS, URINE 0-2 Granular Casts /LPF; RBC,URINE 0-5 /HPF (0-5); SQUAMOUS EPITHELIAL CELL,UR FEW Squamous (<= Few); WBC,URINE 0-3 /HPF (0-3)
--- NOTE | 2021-08-13 13:12 | PROVIDER PROGRESS NOTE ---
Assessment/Plan - Problem List (1) Sepsis Assessment/Plan: stable and resolved. now Patient's blood pressure is in normal range, lactic acid become normal range. patient yesterday present Hypotension, elevated lactic acid, Hypoxia, Blood culture show Bacteremia, and Aspiration pneumonia and UTI. Continue antibiotics Zosyn, continue gently IVF (2)bacteremia Blood culture show Bacteremia, Negative bacillus. UA culture show likely patient had UTI, Plus patient had acute aspiration which could have caused patient had aspiration pneumonia. We will repeat blood culture on tomorrow, Continue treated with antibiotics Zosyn. (3)aspiration pneumonia significantly improved. pt had 97% O2 sat on room air now. pt had witnessed aspiration in the hospital lobby, And patient showed significant hypoxia. We will continue antibiotics Zosyn. (4)UTI UA culture show likely patient had possible UTI which is likely cause pt's bacteremia. Continue treated with antibiotics Zosyn, urine culture sensitive study is pending (5) Hypoxia resolved. pt had 97% O2 sat on room air now (6) Pulmonary hypertension Conclusion/Plan: This patient has documented pulmonary htn. Patient may continue follow-up with his building architect and his under presser as an outpatient to manage (7) Vomiting resolved. CT of the abdomen review unremarkable, it is likely caused by virus gastritis. (8) Chronic kidney disease, stage IV (severe) Conclusion/Plan: creatinine is 2.7 now, slight elevated, we will hold Lasix and give pt gently IVF Repeat labs in the morning. Continue to avoid nephrotoxic agents. (9)pleural effusion CXR reveals pt special right moderate size pleural effusion, pt has hx of pleu ral effusion, it is likely caused by pt's diastolic heart failure plus CKD at stage 4. But pt has stable oxygen sats at 97% without Respiratory distress. We will continue vital signs monitor, Continue precaution fluids overload. - Current Meds Current Meds: Current Medications Generic Name Dose Route Start Last Admin Trade Name Freq PRN Reason Stop Dose Admin Acetaminophen 650 mg 08/12/21 00:46 08/13/21 12:16 Acetaminophen 325 Mg Tablet PO 650 mg Q4HR PRN Administration Pain 1 to 4 Famotidine 20 mg 08/12/21 09:00 08/13/21 08:21 Famotidine 20 Mg Tablet PO 20 mg BID FLORES Administration Piperacillin Sod/Tazobactam 100 mls @ 25 mls/hr 08/12/21 12:00 08/13/21 12:17 Sod 3.375 gm/ Sodium Chloride IV 25 mls/hr Q8H FLORES Administration Oxycodone HCl 5 mg 08/12/21 00:46 08/13/21 12:16 Oxycodone 5 Mg Tablet PO 5 mg Q4HR PRN Administration Pain 5 to 7 Pantoprazole Sodium 40 mg 08/12/21 09:00 08/13/21 08:20 Pantoprazole 40 Mg Tablet PO 40 mg DAILY FLORES Administration Saccharomyces Boulardii 250 mg 08/12/21 08:00 08/13/21 08:21 Saccharomyces Boulardii 250 Mg Capsule PO 250 mg BIDWM FLORES Administration Sodium Chloride 10 ml 08/12/21 00:46 08/13/21 12:17 Sodium Chloride Flush 0.9% 10 Ml Syringe IVP 10 ml PRN PRN Administration NEEDED PER PROVIDER ORDERS Sodium Chloride 10 ml 08/12/21 01:00 08/13/21 08:23 Sodium Chloride Flush 0.9% 10 Ml Syringe IVP Not Given 0100,0900,1700 FLORES Tamsulosin HCl 0.4 mg 08/12/21 09:00 08/13/21 08:20 Tamsulosin 0.4 Mg Capsule PO 0.4 mg BID FLORES Administration - Lab Result Fish Bone Diagrams: 08/13/21 06:10 08/13/21 06:10 - Additional Planning My Orders: My Active Orders 08/14/21 05:00 BMP - BASIC METABOLIC PANEL [CHEM] DAILYLAB CBC - COMP BLD CT W/AUTO DIFF [HEME] DAILYLAB 08/15/21 05:00 BMP - BASIC METABOLIC PANEL [CHEM] DAILYLAB CBC - COMP BLD CT W/AUTO DIFF [HEME] DAILYLAB 08/16/21 05:00 BMP - BASIC METABOLIC PANEL [CHEM] DAILYLAB CBC - COMP BLD CT W/AUTO DIFF [HEME] DAILYLAB 08/17/21 05:00 BMP - BASIC METABOLIC PANEL [CHEM] DAILYLAB CBC - COMP BLD CT W/AUTO DIFF [HEME] DAILYLAB Subjective - Subjective Patient Reports: Feeling Better Objective Vital Signs: Vital Signs - 24 hr 08/12/21 08/12/21 08/12/21 14:16 16:00 22:45 Temperature 36.3 C L Heart Rate [ 70 73 Brachial] Respiratory 18 Rate Blood Pressure 101/52 L 84/48 L 90/42 L [Left Brachial artery] O2 Saturation 95 97 08/12/21 08/13/21 08/13/21 23:48 06:15 08:00 Temperature 37.5 C 36.9 C 36.2 C L Heart Rate [ 70 70 69 Brachial] Respiratory 20 20 18 Rate Blood Pressure 114/52 L 112/63 122/63 [Left Brachial artery] O2 Saturation 96 97 Oxygen O2 Source Room air Oxygen Flow Rate 3 I&O (Last 24 Hrs): Intake and Output Totals x24h 08/11/21 08/12/21 08/13/21 23:59 23:59 23:59 Intake Total 3645.00 2180.000 Output Total 250 Balance 3645.00 1930.000 General: Alert, Oriented x3, Cooperative, No acute distress HEENT: Atraumatic Neck: Supple Lymphatic: no adenopathy Neuro: Alert, Non Focal, Oriented Times 3 Cardiovascular: Regular rate, Normal S1, Normal S2 Respiratory: Chest non-tender, No respiratory distress Abdomen: Normal bowel sounds, Soft, No tenderness Extremities: Normal pulses - Results Results: Laboratory Results WBC 9.7 x10^3/uL (4.8-10.8) 08/13/21 06:10 RBC 3.39 10^6/uL (4.70-6.10) L 08/13/21 06:10 Hgb 10.5 g/dL (14.0-18.0) L 08/13/21 06:10 Hct 33.1 % (42.0-52.0) L 08/13/21 06:10 MCV 97.6 fL (80.0-94.0) H 08/13/21 06:10 MCH 31.0 pg (27.0-31.0) 08/13/21 06:10 MCHC 31.7 g/dL (32.0-36.0) L 08/13/21 06:10 RDW 17.2 % (12.0-15.0) H 08/13/21 06:10 Plt Count 113 10^3/uL (130-450) L 08/13/21 06:10 MPV 12.4 fL (7.4-11.4) H 08/13/21 06:10 Neut # (Auto) 8.5 10^3/uL (1.5-6.6) H 08/13/21 06:10 Lymph # (Auto) 0.3 10^3/uL (1.5-3.5) L 08/13/21 06:10 [place] # (Auto) 0.7 10^3/uL (0.0-1.0) 08/13/21 06:10 Eos # (Auto) 0.0 10^3/uL (0.0-0.7) 08/13/21 06:10 Baso # (Auto) 0.0 10^3/uL (0.0-0.1) 08/13/21 06:10 Absolute Nucleated RBC 0.00 x10^3/uL 08/13/21 06:10 Total Counted 100 08/12/21 06:14 Band Neuts % (Manual) 37 % (0-10) H 08/12/21 06:14 Reactive Lymphs % (Man) 1 % 08/12/21 06:14 Abnorm Lymph % (Manual) 0 % 08/12/21 06:14 Nucleated RBC % 0.0 /100WBC 08/13/21 06:10 Neutrophils # (Manual) 8.2 10^3/uL (1.5-6.6) H 08/12/21 06:14 Lymphocytes # (Manual) 0.4 10^3/uL (1.5-3.5) L 08/12/21 06:14 Monocytes # (Manual) 0.6 10^3/uL (0.0-1.0) 08/12/21 06:14 Eosinophils # (Manual) 0.0 10^3/uL (0-0.7) 08/12/21 06:14 Basophils # (Manual) 0.0 10^3/uL (0-0.1) 08/12/21 06:14 Differential Comment MANUAL DIFFERENTIAL 08/12/21 06:14 Platelet Estimate NORMAL (130-450,000) (NORMAL) 08/12/21 06:14 Platelet Morphology NORMAL APPEARANCE (NORMAL) 08/12/21 06:14 RBC Morph Micro Appear 2+ HYPOCHROMASIA (NORMAL) 1+ MACROCYTOSIS (NORMAL) 08/12/21 06:14 RBC Morph Micro Appear 2+ HYPOCHROMASIA (NORMAL) 1+ MACROCYTOSIS (NORMAL) 08/12/21 06:14 Sodium 139 mmol/L (135-145) 08/13/21 06:10 Potassium 4.3 mmol/L (3.5-5.0) 08/13/21 06:10 Chloride 100 mmol/L (101-111) L 08/13/21 06:10 Carbon Dioxide 25 mmol/L (21-32) 08/13/21 06:10 Anion Gap 14.0 (6-13) H 08/13/21 06:10 BUN 38 mg/dL (6-20) H 08/13/21 06:10 Creatinine 2.7 mg/dL (0.6-1.2) H 08/13/21 06:10 Estimated GFR (MDRD) 23 (>89) L 08/13/21 06:10 Glucose 111 mg/dL (70-100) H 08/13/21 06:10 Lactic Acid 2.2 mmol/L (0.5-2.2) 08/12/21 21:10 Calcium 8.4 mg/dL (8.5-10.3) L 08/13/21 06:10 Magnesium 1.7 mg/dL (1.7-2.8) 08/11/21 22:06 Total Bilirubin 1.6 mg/dL (0.2-1.0) H 08/11/21 22:06 AST 37 IU/L (10-42) 08/11/21 22:06 ALT 19 IU/L (10-60) 08/11/21 22:06 Alkaline Phosphatase 174 IU/L (42-121) H 08/11/21 22:06 Troponin I High Sens 40.7 ng/L (2.3-19.7) H* 08/12/21 21:10 Total Protein 7.8 g/dL (6.7-8.2) 08/11/21 22:06 Albumin 4.1 g/dL (3.2-5.5) 08/11/21 22:06 Globulin 3.7 g/dL (2.1-4.2) 08/11/21 22:06 Albumin/Globulin Ratio 1.1 (1.0-2.2) 08/11/21 22:06 Lipase 30 U/L (22-51) 08/11/21 22:06 Urine Color DARK YELLOW 08/13/21 12:08 Urine Clarity CLEAR (CLEAR) 08/13/21 12:08 Urine pH 5.5 PH (5.0-7.5) 08/13/21 12:08 Ur Specific [place] 1.015 (1.002-1.030) 08/13/21 12:08 Urine Protein TRACE mg/dL (NEGATIVE) 08/13/21 12:08 Urine Glucose (UA) NEGATIVE mg/dL (NEGATIVE) 08/13/21 12:08 Urine Ketones TRACE mg/dL (NEGATIVE) 08/13/21 12:08 Urine Occult Blood SMALL (NEGATIVE) H 08/13/21 12:08 Urine Nitrite NEGATIVE (NEGATIVE) 08/13/21 12:08 Urine Bilirubin NEGATIVE (NEGATIVE) 08/13/21 12:08 Urine Urobilinogen 0.2 (NORMAL) E.U./dL (NORMAL) 08/13/21 12:08 Ur Leukocyte Esterase NEGATIVE (NEGATIVE) 08/13/21 12:08 Urine RBC 0-5 /HPF (0-5) 08/13/21 12:08 Urine WBC 0-3 /HPF (0-3) 08/13/21 12:08 Ur Squamous Epith Cells FEW Squamous (<= Few) 08/13/21 12:08 Amorphous Sediment Moderate /LPF 08/13/21 12:08 Urine Bacteria Moderate /HPF (None Seen) H 08/13/21 12:08 Urine Casts 0-2 Granular Casts /LPF 08/13/21 12:08 Urine Culture Comments NOT INDICATED 08/13/21 12:08 Nasal Adenovirus (PCR) NOT DETECTED 08/11/21 22:43 Nasal B. parapertussis DNA (PCR) NOT DETECTED 08/11/21 22:43 Nasal Coronavir 229E PCR NOT DETECTED 08/11/21 22:43 Nasal Coronavir HKU1 PCR NOT DETECTED 08/11/21 22:43 Nasal Coronavir NL63 PCR NOT DETECTED 08/11/21 22:43 Nasal Coronavir OC43 PCR NOT DETECTED 08/11/21 22:43 Nasal Enterovir/Rhinovir PCR NOT DETECTED 08/11/21 22:43 Nasal Influenza B PCR NOT DETECTED 08/11/21 22:43 Nasal Influenza A PCR NOT DETECTED 08/11/21 22:43 Nasal Parainfluen 1 PCR NOT DETECTED 08/11/21 22:43 Nasal Parainfluen 2 PCR NOT DETECTED 08/11/21 22:43 Nasal Parainfluen 3 PCR NOT DETECTED 08/11/21 22:43 Nasal Parainfluen 4 PCR NOT DETECTED 08/11/21 22:43 Nasal RSV (PCR) NOT DETECTED 08/11/21 22:43 Nasal B.pertussis DNA PCR NOT DETECTED 08/11/21 22:43 Nasal C.pneumoniae (PCR) NOT DETECTED 08/11/21 22:43 Valeriy Human Metapneumo PCR NOT DETECTED 08/11/21 22:43 Nasal M.pneumoniae (PCR) NOT DETECTED 08/11/21 22:43 Nasal SARS-CoV-2 (PCR) NOT DETECTED 08/11/21 22:43 - Procedures Procedures: Procedures EXCISION OF ASCENDING COLON, ENDO (08/15/16) EXCISION OF CECUM, ENDO, DIAGN (04/19/21) EXCISION OF DUODENUM, ENDO, DIAGN (04/19/21) EXCISION OF ESOPHAGOGASTRIC JUNCTION, ENDO, DIAGN (04/19/21) EXCISION OF ESOPHAGUS, ENDO, DIAGN (01/15/18) EXCISION OF ILEUM, ENDO, DIAGN (04/19/21) EXCISION OF LOWER ESOPHAGUS, ENDO, DIAGN (04/19/21) EXCISION OF STOMACH, PYLORUS, ENDO, DIAGN (04/19/21) INSPECTION OF LOWER INTESTINAL TRACT, ENDO (08/27/18) TRANSFUSE NONAUT RED BLOOD CELLS IN PERIPH VEIN, PERC (04/19/21) ABX Reporting Has patient been on IV antibiotics over the past 48 hours?: Yes Current Medications - Current Medications Current Medications: Active Medications Acetaminophen (Acetaminophen 325 Mg Tablet) 650 mg PO Q4HR PRN PRN Reason: Pain 1 to 4 Last Admin: 08/13/21 12:16 Dose: 650 mg Documented by: Famotidine (Famotidine 20 Mg Tablet) 20 mg PO BID [facility] Last Admin: 08/13/21 08:21 Dose: 20 mg Documented by: Piperacillin Sod/Tazobactam (Sod 3.375 gm/ Sodium Chloride) 100 mls @ 25 mls/hr IV Q8H [facility] Last Admin: 08/13/21 12:17 Dose: 25 mls/hr Documented by: Lactated Ringer's (Lr) 1,000 mls @ 83.333 mls/hr IV .Q12H [facility] Stop: 08/14/21 13:59 Ondansetron HCl (Ondansetron Odt 4 Mg Tablet) 4 mg TL Q6HR PRN PRN Reason: Nausea / Vomiting Ondansetron HCl (Ondansetron 4 Mg/2 Ml Vial) 4 mg IVP Q6HR PRN PRN Reason: Nausea / Vomiting Oxycodone HCl (Oxycodone 5 Mg Tablet) 5 mg PO Q4HR PRN PRN Reason: Pain 5 to 7 Last Admin: 08/13/21 12:16 Dose: 5 mg Documented by: Pantoprazole Sodium (Pantoprazole 40 Mg Tablet) 40 mg PO DAILY [facility] Last Admin: 08/13/21 08:20 Dose: 40 mg Documented by: Prochlorperazine Edisylate (Prochlorperazine 10 Mg/2 Ml Vial) 10 mg IVP Q6HR PRN PRN Reason: Nausea / Vomiting Promethazine HCl (Promethazine 25 Mg Tablet) 25 mg PO Q6H PRN PRN Reason: Nausea / Vomiting Saccharomyces Boulardii (Saccharomyces Boulardii 250 Mg Capsule) 250 mg PO BIDWM [facility] Last Admin: 08/13/21 08:21 Dose: 250 mg Documented by: Sodium Chloride (Sodium Chloride Flush 0.9% 10 Ml Syringe) 10 ml IVP PRN PRN PRN Reason: NEEDED PER PROVIDER ORDERS Last Admin: 08/13/21 12:17 Dose: 10 ml Documented by: Sodium Chloride (Sodium Chloride Flush 0.9% 10 Ml Syringe) 10 ml IVP 0100,0900,1700 [facility] Last Admin: 08/13/21 08:23 Dose: Not Given Documented by: Tamsulosin HCl (Tamsulosin 0.4 Mg Capsule) 0.4 mg PO BID [facility] Last Admin: 08/13/21 08:20 Dose: 0.4 mg Documented by: Metoprolol Succinate [Toprol Xl] 25 mg ORAL DAILY 08/15/16 Simvastatin 20 mg ORAL QPM 08/15/16 Ferrous Sulfate 1 tab PO DAILY 01/14/18 Losartan Potassium 12.5 mg PO DAILY 01/14/18 Pantoprazole [Protonix] 40 mg PO DAILY 01/14/18 Umeclidinium Brm/Vilanterol Tr [Anoro Ellipta 62.5-25 Mcg INH] 1 puffs INH DAILY 01/14/18 Tamsulosin [Flomax] 0.4 mg PO BID 04/19/21 Torsemide 40 mg PO DAILY 04/19/21 allopurinoL [Zyloprim] 100 mg PO DAILY 04/19/21
[2021-08-14] MEDS: oxyCODONE 5 MG TABLET PO PRN ×3 (00:26→08:53)
[2021-08-14] MEDS: ACETAMINOPHEN 325 MG TABLET PO PRN ×4 (00:26→18:46)
[2021-08-14] MEDS: SODIUM CHLORIDE FLUSH 0.9% 10 ML SYRINGE IVP SCH ×4 (00:35→23:51)
[2021-08-14] MEDS: PIPERACILLIN/TAZOBACTAM 3.375 GM in SODIUM CHLORIDE 0.9% MINIBAG 100 ML IV SCH ×3 (04:37→20:57)
[2021-08-14 07:04] LABS: BASOPHILS % (AUTO) 0.4 %; EOSINOPHILS # (AUTO) 0.1 10^3/uL (0.0-0.7); EOSINOPHILS % (AUTO) 0.9 %; HCT - HEMATOCRIT 32.1 % (42.0-52.0); LYMPHOCYTES # (AUTO) 0.2 10^3/uL (1.5-3.5); LYMPHOCYTES % (AUTO) 1.9 %; MEAN CORPUSCULAR HEMOGLOBIN 30.7 pg (27.0-31.0); MEAN CORPUSCULAR HGB CONC 31.2 g/dL (32.0-36.0); MEAN CORPUSCULAR VOLUME 98.5 fL (80.0-94.0); MEAN PLATELET VOLUME 12.5 fL (7.4-11.4); MONOCYTES # (AUTO) 0.8 10^3/uL (0.0-1.0); MONOCYTES % (AUTO) 8.2 %; NEUTROPHILS # (AUTO) 8.4 10^3/uL (1.5-6.6); NEUTROPHILS % (AUTO) 87.6 %; PLT - PLATELET COUNT 113 10^3/uL (130-450); RED BLOOD COUNT 3.26 10^6/uL (4.70-6.10); RED CELL DISTRIBUTION WIDTH 17.4 % (12.0-15.0); WHITE BLOOD COUNT 9.5 x10^3/uL (4.8-10.8)
[2021-08-14 07:14] LABS: CALCIUM 8.7 mg/dL (8.5-10.3); CREATININE 2.4 mg/dL (0.6-1.2)
[2021-08-14] MEDS: PANTOPRAZOLE 40 MG TABLET PO SCH (08:51)
[2021-08-14] MEDS: TAMSULOSIN 0.4 MG CAPSULE PO SCH ×2 (08:52→20:57)
[2021-08-14] MEDS: FAMOTIDINE 20 MG TABLET PO SCH ×2 (08:52→20:57)
[2021-08-14] MEDS: SACCHAROMYCES BOULARDII 250 MG CAPSULE PO SCH ×2 (08:54→18:46)
--- NOTE | 2021-08-14 12:13 | PROVIDER PROGRESS NOTE ---
Assessment/Plan - Problem List (1) Sepsis Assessment/Plan: 08/14 Continue hemodynamic stable. pt report he feel good. after treated with antibiotics, we repeat blood culture is pending. pt's previous blood culture show klebsiella pneumoniae, Continue antibiotics Zosyn. stable and resolved. now Patient's blood pressure is in normal range, lactic acid become normal range. patient yesterday present Hypotension, elevated lactic acid, Hypoxia, Blood culture show Bacteremia, and Aspiration pneumonia and UTI. Continue antibiotics Zosyn, continue gently IVF (2)bacteremia 08/14 blood culture show klebsiella pneumoniae positive, we will continue treat with Zosyn and repeat blood culture is pending. Blood culture show Bacteremia, Negative bacillus. UA culture show likely patient had UTI, Plus patient had acute aspiration which could have caused patient had aspiration pneumonia. We will repeat blood culture on tomorrow, Continue treated with antibiotics Zosyn. (3)aspiration pneumonia 08/14 pt continue have stable respiratory status, aspiration precaution, continue antibiotics significantly improved. pt had 97% O2 sat on room air now. pt had witnessed aspiration in the hospital lobby, And patient showed significant hypoxia. We will continue antibiotics Zosyn. (4)UTI UA culture show likely patient had possible UTI which is likely cause pt's bacteremia. Continue treated with antibiotics Zosyn, urine culture sensitive study is pending (5) Hypoxia resolved. pt had 97% O2 sat on room air now (6) Pulmonary hypertension Conclusion/Plan: This patient has documented pulmonary htn. Patient may continue follow-up with his side splitter and his backrest assembler as an outpatient to manage (7) Vomiting resolved. CT of the abdomen review unremarkable, it is likely caused by virus gastritis. (8) Chronic kidney disease, stage IV (severe) Conclusion/Plan: creatinine is 2.7 now, slight elevated, we will hold Lasix and give pt gently IVF Repeat labs in the morning. Continue to avoid nephrotoxic agents. (9)pleural effusion CXR reveals pt special right moderate size pleural effusion, pt has hx of pleural effusion, it is likely caused by pt's diastolic heart failure plus CKD at stage 4. But pt has stable oxygen sats at 97% without Respiratory distress. We will con tinue vital signs monitor, Continue precaution fluids overload. - Current Meds Current Meds: Current Medications Generic Name Dose Route Start Last Admin Trade Name Freq PRN Reason Stop Dose Admin Acetaminophen 650 mg 08/12/21 00:46 08/14/21 08:52 Acetaminophen 325 Mg Tablet PO 650 mg Q4HR PRN Administration Pain 1 to 4 Famotidine 20 mg 08/12/21 09:00 08/14/21 08:52 Famotidine 20 Mg Tablet PO 20 mg BID FLORES Administration Piperacillin Sod/Tazobactam 100 mls @ 25 mls/hr 08/12/21 12:00 08/14/21 08:53 Sod 3.375 gm/ Sodium Chloride IV Infused Q8H FLORES Infusion Oxycodone HCl 5 mg 08/12/21 00:46 08/14/21 08:53 Oxycodone 5 Mg Tablet PO 5 mg Q4HR PRN Administration Pain 5 to 7 Pantoprazole Sodium 40 mg 08/12/21 09:00 08/14/21 08:51 Pantoprazole 40 Mg Tablet PO 40 mg DAILY FLORES Administration Saccharomyces Boulardii 250 mg 08/12/21 08:00 08/14/21 08:54 Saccharomyces Boulardii 250 Mg Capsule PO 250 mg BIDWM FLORES Administration Sodium Chloride 10 ml 08/12/21 00:46 08/13/21 12:17 Sodium Chloride Flush 0.9% 10 Ml Syringe IVP 10 ml PRN PRN Administration NEEDED PER PROVIDER ORDERS Sodium Chloride 10 ml 08/12/21 01:00 08/14/21 08:53 Sodium Chloride Flush 0.9% 10 Ml Syringe IVP 10 ml 0100,0900,1700 FLORES Administration Tamsulosin HCl 0.4 mg 08/12/21 09:00 08/14/21 08:52 Tamsulosin 0.4 Mg Capsule PO 0.4 mg BID FLORES Administration - Lab Result Fish Bone Diagrams: 08/14/21 06:14 08/14/21 06:14 - Additional Planning My Orders: My Active Orders 08/13/21 13:26 Out of bed 3+ hours today [RC] TID 08/13/21 18:07 Blood Culture [CULTURE, BLOOD #1] [RM] Urgent 08/13/21 18:14 Blood Culture [CULTURE, BLOOD #2] [RM] Urgent 08/15/21 05:00 BMP - BASIC METABOLIC PANEL [CHEM] DAILYLAB CBC - COMP BLD CT W/AUTO DIFF [HEME] DAILYLAB 08/16/21 05:00 BMP - BASIC METABOLIC PANEL [CHEM] DAILYLAB CBC - COMP BLD CT W/AUTO DIFF [HEME] DAILYLAB 08/17/21 05:00 BMP - BASIC METABOLIC PANEL [CHEM] DAILYLAB CBC - COMP BLD CT W/AUTO DIFF [HEME] DAILYLAB Subjective - Subjective Patient Reports: Feeling Better Objective Vital Signs: Vital Signs - 24 hr 08/13/21 08/13/21 08/14/21 16:00 23:45 06:40 Temperature 36.1 C L 36.3 C L 36.2 C L Heart Rate [ 70 Brachial] Heart Rate [ 70 70 Radial] Respiratory 16 16 20 Rate Blood Pressure 105/56 L [Left Brachial artery] Blood Pressure 103/57 L 107/65 [Right Radial artery] O2 Saturation 96 94 93 Oxygen O2 Source Room air Oxygen Flow Rate 3 I&O (Last 24 Hrs): Intake and Output Totals x24h 08/12/21 08/13/21 08/14/21 23:59 23:59 23:59 Intake Total 3645.00 4163.000 1250 Output Total 250 Balance 3645.00 3913.000 1250 General: Alert, Oriented x3, Cooperative, No acute distress HEENT: Atraumatic Neck: Supple Lymphatic: no adenopathy Neuro: Alert, Non Focal, Oriented Times 3 Cardiovascular: Regular rate, Normal S1, Normal S2 Respiratory: Chest non-tender, No respiratory distress Abdomen: Normal bowel sounds, Soft Extremities: Normal pulses - Results Results: Laboratory Results WBC 9.5 x10^3/uL (4.8-10.8) 08/14/21 06:14 RBC 3.26 10^6/uL (4.70-6.10) L 08/14/21 06:14 Hgb 10.0 g/dL (14.0-18.0) L 08/14/21 06:14 Hct 32.1 % (42.0-52.0) L 08/14/21 06:14 MCV 98.5 fL (80.0-94.0) H 08/14/21 06:14 MCH 30.7 pg (27.0-31.0) 08/14/21 06:14 MCHC 31.2 g/dL (32.0-36.0) L 08/14/21 06:14 RDW 17.4 % (12.0-15.0) H 08/14/21 06:14 Plt Count 113 10^3/uL (130-450) L 08/14/21 06:14 MPV 12.5 fL (7.4-11.4) H 08/14/21 06:14 Neut # (Auto) 8.4 10^3/uL (1.5-6.6) H 08/14/21 06:14 Lymph # (Auto) 0.2 10^3/uL (1.5-3.5) L 08/14/21 06:14 [place] # (Auto) 0.8 10^3/uL (0.0-1.0) 08/14/21 06:14 Eos # (Auto) 0.1 10^3/uL (0.0-0.7) 08/14/21 06:14 Baso # (Auto) 0.0 10^3/uL (0.0-0.1) 08/14/21 06:14 Absolute Nucleated RBC 0.00 x10^3/uL 08/14/21 06:14 Total Counted 100 08/12/21 06:14 Band Neuts % (Manual) 37 % (0-10) H 08/12/21 06:14 Reactive Lymphs % (Man) 1 % 08/12/21 06:14 Abnorm Lymph % (Manual) 0 % 08/12/21 06:14 Nucleated RBC % 0.0 /100WBC 08/14/21 06:14 Neutrophils # (Manual) 8.2 10^3/uL (1.5-6.6) H 08/12/21 06:14 Lymphocytes # (Manual) 0.4 10^3/uL (1.5-3.5) L 08/12/21 06:14 Monocytes # (Manual) 0.6 10^3/uL (0.0-1.0) 08/12/21 06:14 Eosinophils # (Manual) 0.0 10^3/uL (0-0.7) 08/12/21 06:14 Basophils # (Manual) 0.0 10^3/uL (0-0.1) 08/12/21 06:14 Differential Comment MANUAL DIFFERENTIAL 08/12/21 06:14 Platelet Estimate NORMAL (130-450,000) (NORMAL) 08/12/21 06:14 Platelet Morphology NORMAL APPEARANCE (NORMAL) 08/12/21 06:14 RBC Morph Micro Appear 2+ HYPOCHROMASIA (NORMAL) 1+ MACROCYTOSIS (NORMAL) 08/12/21 06:14 RBC Morph Micro Appear 2+ HYPOCHROMASIA (NORMAL) 1+ MACROCYTOSIS (NORMAL) 08/12/21 06:14 Sodium 142 mmol/L (135-145) 08/14/21 06:14 Potassium 4.0 mmol/L (3.5-5.0) 08/14/21 06:14 Chloride 106 mmol/L (101-111) 08/14/21 06:14 Carbon Dioxide 26 mmol/L (21-32) 08/14/21 06:14 Anion Gap 10.0 (6-13) 08/14/21 06:14 BUN 38 mg/dL (6-20) H 08/14/21 06:14 Creatinine 2.4 mg/dL (0.6-1.2) H 08/14/21 06:14 Estimated GFR (MDRD) 26 (>89) L 08/14/21 06:14 Glucose 108 mg/dL (70-100) H 08/14/21 06:14 Lactic Acid 2.2 mmol/L (0.5-2.2) 08/12/21 21:10 Calcium 8.7 mg/dL (8.5-10.3) 08/14/21 06:14 Magnesium 1.7 mg/dL (1.7-2.8) 08/11/21 22:06 Total Bilirubin 1.6 mg/dL (0.2-1.0) H 08/11/21 22:06 AST 37 IU/L (10-42) 08/11/21 22:06 ALT 19 IU/L (10-60) 08/11/21 22:06 Alkaline Phosphatase 174 IU/L (42-121) H 08/11/21 22:06 Troponin I High Sens 40.7 ng/L (2.3-19.7) H* 08/12/21 21:10 Total Protein 7.8 g/dL (6.7-8.2) 08/11/21 22:06 Albumin 4.1 g/dL (3.2-5.5) 08/11/21 22:06 Globulin 3.7 g/dL (2.1-4.2) 08/11/21 22:06 Albumin/Globulin Ratio 1.1 (1.0-2.2) 08/11/21 22:06 Lipase 30 U/L (22-51) 08/11/21 22:06 Urine Color DARK YELLOW 08/13/21 12:08 Urine Clarity CLEAR (CLEAR) 08/13/21 12:08 Urine pH 5.5 PH (5.0-7.5) 08/13/21 12:08 Ur Specific [place] 1.015 (1.002-1.030) 08/13/21 12:08 Urine Protein TRACE mg/dL (NEGATIVE) 08/13/21 12:08 Urine Glucose (UA) NEGATIVE mg/dL (NEGATIVE) 08/13/21 12:08 Urine Ketones TRACE mg/dL (NEGATIVE) 08/13/21 12:08 Urine Occult Blood SMALL (NEGATIVE) H 08/13/21 12:08 Urine Nitrite NEGATIVE (NEGATIVE) 08/13/21 12:08 Urine Bilirubin NEGATIVE (NEGATIVE) 08/13/21 12:08 Urine Urobilinogen 0.2 (NORMAL) E.U./dL (NORMAL) 08/13/21 12:08 Ur Leukocyte Esterase NEGATIVE (NEGATIVE) 08/13/21 12:08 Urine RBC 0-5 /HPF (0-5) 08/13/21 12:08 Urine WBC 0-3 /HPF (0-3) 08/13/21 12:08 Ur Squamous Epith Cells FEW Squamous (<= Few) 08/13/21 12:08 Amorphous Sediment Moderate /LPF 08/13/21 12:08 Urine Bacteria Moderate /HPF (None Seen) H 08/13/21 12:08 Urine Casts 0-2 Granular Casts /LPF 08/13/21 12:08 Urine Culture Comments NOT INDICATED 08/13/21 12:08 Nasal Adenovirus (PCR) NOT DETECTED 08/11/21 22:43 Nasal B. parapertussis DNA (PCR) NOT DETECTED 08/11/21 22:43 Nasal Coronavir 229E PCR NOT DETECTED 08/11/21 22:43 Nasal Coronavir HKU1 PCR NOT DETECTED 08/11/21 22:43 Nasal Coronavir NL63 PCR NOT DETECTED 08/11/21 22:43 Nasal Coronavir OC43 PCR NOT DETECTED 08/11/21 22:43 Nasal Enterovir/Rhinovir PCR NOT DETECTED 08/11/21 22:43 Nasal Influenza B PCR NOT DETECTED 08/11/21 22:43 Nasal Influenza A PCR NOT DETECTED 08/11/21 22:43 Nasal Parainfluen 1 PCR NOT DETECTED 08/11/21 22:43 Nasal Parainfluen 2 PCR NOT DETECTED 08/11/21 22:43 Nasal Parainfluen 3 PCR NOT DETECTED 08/11/21 22:43 Nasal Parainfluen 4 PCR NOT DETECTED 08/11/21 22:43 Nasal RSV (PCR) NOT DETECTED 08/11/21 22:43 Nasal B.pertussis DNA PCR NOT DETECTED 08/11/21 22:43 Nasal C.pneumoniae (PCR) NOT DETECTED 08/11/21 22:43 Valeriy Human Metapneumo PCR NOT DETECTED 08/11/21 22:43 Nasal M.pneumoniae (PCR) NOT DETECTED 08/11/21 22:43 Nasal SARS-CoV-2 (PCR) NOT DETECTED 08/11/21 22:43 - Procedures Procedures: Procedures EXCISION OF ASCENDING COLON, ENDO (08/15/16) EXCISION OF CECUM, ENDO, DIAGN (04/19/21) EXCISION OF DUODENUM, ENDO, DIAGN (04/19/21) EXCISION OF ESOPHAGOGASTRIC JUNCTION, ENDO, DIAGN (04/19/21) EXCISION OF ESOPHAGUS, ENDO, DIAGN (01/15/18) EXCISION OF ILEUM, ENDO, DIAGN (04/19/21) EXCISION OF LOWER ESOPHAGUS, ENDO, DIAGN (04/19/21) EXCISION OF STOMACH, PYLORUS, ENDO, DIAGN (04/19/21) INSPECTION OF LOWER INTESTINAL TRACT, ENDO (08/27/18) TRANSFUSE NONAUT RED BLOOD CELLS IN PERIPH VEIN, PERC (04/19/21) ABX Reporting Has patient been on IV antibiotics over the past 48 hours?: Yes Current Medications - Current Medications Current Medications: Active Medications Acetaminophen (Acetaminophen 325 Mg Tablet) 650 mg PO Q4HR PRN PRN Reason: Pain 1 to 4 Last Admin: 08/14/21 08:52 Dose: 650 mg Documented by: Famotidine (Famotidine 20 Mg Tablet) 20 mg PO BID [facility] Last Admin: 08/14/21 08:52 Dose: 20 mg Documented by: Piperacillin Sod/Tazobactam (Sod 3.375 gm/ Sodium Chloride) 100 mls @ 25 mls/hr IV Q8H FLORES Last Admin: 08/14/21 13:06 Dose: 25 mls/hr Documented by: Ondansetron HCl (Ondansetron Odt 4 Mg Tablet) 4 mg TL Q6HR PRN PRN Reason: Nausea / Vomiting Ondansetron HCl (Ondansetron 4 Mg/2 Ml Vial) 4 mg IVP Q6HR PRN PRN Reason: Nausea / Vomiting Oxycodone HCl (Oxycodone 5 Mg Tablet) 5 mg PO Q4HR PRN PRN Reason: Pain 5 to 7 Last Admin: 08/14/21 08:53 Dose: 5 mg Documented by: Pantoprazole Sodium (Pantoprazole 40 Mg Tablet) 40 mg PO DAILY [facility] Last Admin: 08/14/21 08:51 Dose: 40 mg Documented by: Prochlorperazine Edisylate (Prochlorperazine 10 Mg/2 Ml Vial) 10 mg IVP Q6HR PRN PRN Reason: Nausea / Vomiting Promethazine HCl (Promethazine 25 Mg Tablet) 25 mg PO Q6H PRN PRN Reason: Nausea / Vomiting Saccharomyces Boulardii (Saccharomyces Boulardii 250 Mg Capsule) 250 mg PO BIDWM [facility] Last Admin: 08/14/21 08:54 Dose: 250 mg Documented by: Sodium Chloride (Sodium Chloride Flush 0.9% 10 Ml Syringe) 10 ml IVP PRN PRN PRN Reason: NEEDED PER PROVIDER ORDERS Last Admin: 08/14/21 13:08 Dose: 10 ml Documented by: Sodium Chloride (Sodium Chloride Flush 0.9% 10 Ml Syringe) 10 ml IVP 0100,0900,1700 [facility] Last Admin: 08/14/21 08:53 Dose: 10 ml Documented by: Tamsulosin HCl (Tamsulosin 0.4 Mg Capsule) 0.4 mg PO BID [facility] Last Admin: 08/14/21 08:52 Dose: 0.4 mg Documented by: Metoprolol Succinate [Toprol Xl] 25 mg ORAL DAILY 08/15/16 Simvastatin 20 mg ORAL QPM 08/15/16 Ferrous Sulfate 1 tab PO DAILY 01/14/18 Losartan Potassium 12.5 mg PO DAILY 01/14/18 Pantoprazole [Protonix] 40 mg PO DAILY 01/14/18 Umeclidinium Brm/Vilanterol Tr [Anoro Ellipta 62.5-25 Mcg INH] 1 puffs INH DAILY 01/14/18 Tamsulosin [Flomax] 0.4 mg PO BID 04/19/21 Torsemide 40 mg PO DAILY 04/19/21 allopurinoL [Zyloprim] 100 mg PO DAILY 04/19/21
[2021-08-14] MEDS: SODIUM CHLORIDE FLUSH 0.9% 10 ML SYRINGE IVP PRN (13:08)
[2021-08-14] MEDS: ATORVASTATIN 10 MG TABLET PO SCH (20:57)
[2021-08-15] MEDS: PIPERACILLIN/TAZOBACTAM 3.375 GM in SODIUM CHLORIDE 0.9% MINIBAG 100 ML IV SCH ×3 (03:54→20:36)
[2021-08-15 06:25] LABS: BASOPHILS # (AUTO) 0.1 10^3/uL (0.0-0.1); BASOPHILS % (AUTO) 0.5 %; EOSINOPHILS # (AUTO) 0.1 10^3/uL (0.0-0.7); EOSINOPHILS % (AUTO) 1.2 %; HCT - HEMATOCRIT 35.2 % (42.0-52.0); HGB - HEMOGLOBIN 11.2 g/dL (14.0-18.0); LYMPHOCYTES # (AUTO) 0.5 10^3/uL (1.5-3.5); LYMPHOCYTES % (AUTO) 4.9 %; MEAN CORPUSCULAR HEMOGLOBIN 31.5 pg (27.0-31.0); MEAN CORPUSCULAR HGB CONC 31.8 g/dL (32.0-36.0); MEAN CORPUSCULAR VOLUME 98.9 fL (80.0-94.0); MEAN PLATELET VOLUME 12.3 fL (7.4-11.4); MONOCYTES # (AUTO) 0.9 10^3/uL (0.0-1.0); MONOCYTES % (AUTO) 8.9 %; NEUTROPHILS # (AUTO) 8.7 10^3/uL (1.5-6.6); NEUTROPHILS % (AUTO) 83.3 %; PLT - PLATELET COUNT 130 10^3/uL (130-450); RED BLOOD COUNT 3.56 10^6/uL (4.70-6.10); RED CELL DISTRIBUTION WIDTH 17.5 % (12.0-15.0); WHITE BLOOD COUNT 10.4 x10^3/uL (4.8-10.8)
[2021-08-15 06:34] LABS: CALCIUM 8.8 mg/dL (8.5-10.3); CREATININE 2.6 mg/dL (0.6-1.2); POTASSIUM 3.8 mmol/L (3.5-5.0)
[2021-08-15] MEDS: SACCHAROMYCES BOULARDII 250 MG CAPSULE PO SCH ×2 (09:11→17:25)
[2021-08-15] MEDS: TAMSULOSIN 0.4 MG CAPSULE PO SCH ×2 (09:12→20:36)
[2021-08-15] MEDS: ACETAMINOPHEN 325 MG TABLET PO PRN (09:12)
[2021-08-15] MEDS: FAMOTIDINE 20 MG TABLET PO SCH ×2 (09:12→20:36)
[2021-08-15] MEDS: PANTOPRAZOLE 40 MG TABLET PO SCH (09:12)
[2021-08-15] MEDS: SODIUM CHLORIDE FLUSH 0.9% 10 ML SYRINGE IVP SCH ×2 (09:14→17:25)
[2021-08-15] MEDS ORDERED: TORSEMIDE 20 MG TABLET PO SCH (10:00)
--- NOTE | 2021-08-15 13:55 | XRAY Report ---
PROCEDURE: Chest 1 View X-Ray INDICATIONS: Shortness of breath TECHNIQUE: One view of the chest was acquired. COMPARISON: 08/12/2021 FINDINGS: Unchanged and moderate-sized right pleural effusion with overlying atelectasis and airspace disease. Left lung and pleural space are clear other than mildly increased interstitial markings similar to pr ior study. Median sternotomy changes and left chest wall cardiac pacing device again noted. Cardiomeg michele is similar. IMPRESSION: Cardiomegaly with stable findings of interstitial pulmonary edema and moderate-sized right pleural ef fusion Reviewed by: Weston Angulo MD on 08/15/2021 1:53 PM PDT Approved by: Weston Angulo MD on 08/15/2021 1:53 PM PDT Station ID: [id number]
[2021-08-15] MEDS ORDERED: HEPARIN 5,000 UNIT/ML VIAL SUBQ SCH (14:00)
--- NOTE | 2021-08-15 14:30 | PROVIDER PROGRESS NOTE ---
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 pt presented orthostatic hypotension in the morning when PT saw pt. rechecked and re-assessed pt, his blood pressure was at normal arrange, and pt is Hemodynamically stable. Pt has pulmonary edema with moderate pleural effusion at right lung. Re-assessed pt, found pt's blood pressure was drop to 76/34, pt is barely response. Pt is DNR code status. I called pt's , his son and his daughter, hope they can come to hospital to see pt. check troponin, it rise to 114 from previous 40. Repeat EKG show ventricular-paced rhythm, without acute change from 08/11 EKG to indicate ischemic change. pt's Torsemide was hold, pt has no blood pressure given because orthostatic hypotension. pt was Lovenox Bid to treat potential [facility]. pt was given 1.5 liter of Bolus IVF of NS, pt was given Dopamine remain dosage for rising his BP. we tried to transfer to ICU but no bed is available. Medical floor can not do Dopamine drip titrate. Per pt's request, I did call pt's devulcanizer tender at [phone], no body p ick up phone. I also called [facility]. If pt became hemodynamically stable, we will call [facility] again. Likely all hospital is full. I explained this situation to pt's and son, they understood the situation. Discussed pt's care with pt's and his son at the bedside. They confirm pt is DNR. If pt became Hemodynamic stable, pt's hope to transfer to [facility] or other hospital for high level care. they also did understand right now all hospital is full and difficult to transfer pt. If pt can not be transferred, keep at our hospital for medical management. But If pt can not make, they understood pt's Hemodynamic unstable situation, keep pt on DNR, then call and update to them. we will repeat to check troponin, continue Lovenox, remain on Dopamine until pt's BP stable, lab and vital monitor closely. CXR was already ordered. (2) Sepsis Assessment/Plan: 08/15 repeat CBC show elevated WBC which could be reactive. pt has no fever. pt continue to have Zosyn, repeat Blood culture was negative for bacteremia. 08/14 Continue hemodynamic stable. pt report he feel good. after treated with antibiotics, we repeat blood culture is pending. pt's previous blood culture show klebsiella pneumoniae, Continue antibiotics Zosyn. stable and resolved. now Patient's blood pressure is in normal range, lactic acid become normal range. patient yesterday present Hypotension, elevated lactic acid, Hypoxia, Blood culture show Bacteremia, and Aspiration pneumonia and UTI. Continue antibiotics Zosyn, continue gently IVF (3)bacteremia 08/15 repeat Blood culture show negative for bacteremia, continue IV antibiotics at hospital now. 08/14 blood culture show klebsiella pneumoniae positive, we will continue treat with Zosyn and repeat blood culture is pending. Blood culture show Bacteremia, Negative bacillus. UA culture show likely patient had UTI, Plus patient had acute aspiration which could have caused patient had aspiration pneumonia. We will repeat blood culture on tomorrow, Continue treated with antibiotics Zosyn. (3)aspiration pneumonia 08/15 repeat CXR show stable, continue antibiotics treatment. 08/14 pt continue have stable respiratory status, aspiration precaution, continue antibiotics significantly improved. pt had 97% O2 sat on room air now. pt had witnessed aspiration in the hospital lobby, And patient showed significant hypoxia. We will continue antibiotics Zosyn. (4)UTI UA culture show likely patient had possible UTI which is likely cause pt's bacteremia. Continue treated with antibiotics Zosyn, urine culture sensitive study is pending (5) Hypoxia resolved. pt had 98% O2 sat on room air (6) Pulmonary hypertension Conclusion/Plan: This patient has documented pulmonary htn. 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 CT of the abdomen review unremarkable, it is likely caused by virus gastritis. 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 Repeat lab. Continue to avoid nephrotoxic agents. (9)pleural effusion CXR reveals pt special right moderate size pleural effusion, pt has hx of pleural effusion, it is likely caused by pt's diastolic heart failure plus CKD at stage 4. But pt has stable oxygen sats at 97% without Respiratory distress. We will continue vital signs monitor, Continue precaution fluids overload. - Current Meds Current Meds: Current Medications Generic Name Dose Route Start Last Admin Trade Name Freq PRN Reason Stop Dose Admin Acetaminophen 650 mg 08/12/21 00:46 08/15/21 09:12 Acetaminophen 325 Mg Tablet PO 650 mg Q4HR PRN Administration Pain 1 to 4 Atorvastatin Calcium 10 mg 08/14/21 21:00 08/14/21 20:57 Atorvastatin 10 Mg Tablet PO 10 mg QPM FLORES Administration Famotidine 20 mg 08/12/21 09:00 08/15/21 09:12 Famotidine 20 Mg Tablet PO 20 mg BID FLORES Administration Heparin Sodium (Porcine) 5,000 unit 08/15/21 14:00 08/15/21 13:47 Heparin 5,000 Unit/Ml Vial SUBQ 5,000 unit BID FLORES Administration Piperacillin Sod/Tazobactam 100 mls @ 25 mls/hr 08/12/21 12:00 08/15/21 12:17 Sod 3.375 gm/ Sodium Chloride IV 25 mls/hr Q8H FLORES Administration Ondansetron HCl 4 mg 08/12/21 00:46 08/15/21 09:15 Ondansetron Odt 4 Mg Tablet TL 4 mg Q6HR PRN Administration Nausea / Vomiting Pantoprazole Sodium 40 mg 08/12/21 09:00 08/15/21 09:12 Pantoprazole 40 Mg Tablet PO 40 mg DAILY FLORES Administration Saccharomyces Boulardii 250 mg 08/12/21 08:00 08/15/21 09:11 Saccharomyces Boulardii 250 Mg Capsule PO 250 mg BIDWM FLORES Administration Sodium Chloride 10 ml 08/12/21 00:46 08/14/21 13:08 Sodium Chloride Flush 0.9% 10 Ml Syringe IVP 10 ml PRN PRN Administration NEEDED PER PROVIDER ORDERS Sodium Chloride 10 ml 08/12/21 01:00 08/15/21 09:14 Sodium Chloride Flush 0.9% 10 Ml Syringe IVP 10 ml 0100,0900,1700 FLORES Administration Tamsulosin HCl 0.4 mg 08/12/21 09:00 08/15/21 09:12 Tamsulosin 0.4 Mg Capsule PO 0.4 mg BID FLORES Administration - Lab Result Fish Bone Diagrams: 08/16/21 04:59 08/16/21 04:59 - Additional Planning My Orders: My Active Orders 08/14/21 21:00 Atorvastatin [Lipitor] 10 mg PO QPM 08/15/21 Evaluate and Treat OT [OT] Routine Evaluate and Treat PT [PT] Routine 08/15/21 13:16 Echo Transthoracic Complete [ECHO] Stat 08/15/21 14:00 Heparin [Heparin Sodium (Porcine)] 5,000 unit SUBQ BID 08/15/21 14:26 EKG - Electrocardiogram [RC] .ONCE 08/16/21 05:00 BMP - BASIC METABOLIC PANEL [CHEM] DAILYLAB CBC - COMP BLD CT W/AUTO DIFF [HEME] DAILYLAB 08/17/21 05:00 BMP - BASIC METABOLIC PANEL [CHEM] DAILYLAB CBC - COMP BLD CT W/AUTO DIFF [HEME] DAILYLAB Subjective - Subjective Patient Reports: Other (unresponse) Objective Vital Signs: Vital Signs - 24 hr 08/14/21 08/14/21 08/15/21 15:57 16:41 00:11 Temperature 36.2 C L 36.4 C L Heart Rate [ Activity] Heart Rate [ 72 Brachial] Heart Rate [ 74 70 Radial] Heart Rate [ Sitting] Heart Rate [ Supine] Respiratory 16 20 Rate Blood Pressure [Activity] Blood Pressure 100/52 L [Left Brachial artery] Blood Pressure 90/48 L 110/64 [Right Radial artery] Blood Pressure [Sitting] Blood Pressure [Supine] O2 Saturation 96 94 08/15/21 08/15/21 08/15/21 07:46 10:50 11:59 Temperature 36.2 C L 37.3 C Heart Rate [ 70 Activity] Heart Rate [ 70 70 Brachial] Heart Rate [ Radial] Heart Rate [ 74 Sitting] Heart Rate [ 70 Supine] Respiratory 18 18 Rate Blood Pressure 79/46 L [Activity] Blood Pressure 115/50 L 123/75 [Left Brachial artery] Blood Pressure [Right Radial artery] Blood Pressure 97/46 L [Sitting] Blood Pressure 84/73 L [Supine] O2 Saturation 95 94 Oxygen O2 Source Room air Oxygen Flow Rate 3 I&O (Last 24 Hrs): Intake and Output Totals x24h 08/13/21 08/14/21 08/15/21 23:59 23:59 23:59 Intake Total 4163.000 1570 440 Output Total 250 Balance 3913.000 1570 440 General: Other (unresponse) HEENT: Atraumatic Cardiovascular: Regular rate, Normal S1, Normal S2 Respiratory: Chest non-tender, No respiratory distress Abdomen: Soft - Results Results: Laboratory Results WBC 10.4 x10^3/uL (4.8-10.8) 08/15/21 05:52 RBC 3.56 10^6/uL (4.70-6.10) L 08/15/21 05:52 Hgb 11.2 g/dL (14.0-18.0) L 08/15/21 05:52 Hct 35.2 % (42.0-52.0) L 08/15/21 05:52 MCV 98.9 fL (80.0-94.0) H 08/15/21 05:52 MCH 31.5 pg (27.0-31.0) H 08/15/21 05:52 MCHC 31.8 g/dL (32.0-36.0) L 08/15/21 05:52 RDW 17.5 % (12.0-15.0) H 08/15/21 05:52 Plt Count 130 10^3/uL (130-450) 08/15/21 05:52 MPV 12.3 fL (7.4-11.4) H 08/15/21 05:52 Neut # (Auto) 8.7 10^3/uL (1.5-6.6) H 08/15/21 05:52 Lymph # (Auto) 0.5 10^3/uL (1.5-3.5) L 08/15/21 05:52 Potter # (Auto) 0.9 10^3/uL (0.0-1.0) 08/15/21 05:52 Eos # (Auto) 0.1 10^3/uL (0.0-0.7) 08/15/21 05:52 Baso # (Auto) 0.1 10^3/uL (0.0-0.1) 08/15/21 05:52 Absolute Nucleated RBC 0.00 x10^3/uL 08/15/21 05:52 Total Counted 100 08/12/21 06:14 Band Neuts % (Manual) 37 % (0-10) H 08/12/21 06:14 Reactive Lymphs % (Man) 1 % 08/12/21 06:14 Abnorm Lymph % (Manual) 0 % 08/12/21 06:14 Nucleated RBC % 0.0 /100WBC 08/15/21 05:52 Neutrophils # (Manual) 8.2 10^3/uL (1.5-6.6) H 08/12/21 06:14 Lymphocytes # (Manual) 0.4 10^3/uL (1.5-3.5) L 08/12/21 06:14 Monocytes # (Manual) 0.6 10^3/uL (0.0-1.0) 08/12/21 06:14 Eosinophils # (Manual) 0.0 10^3/uL (0-0.7) 08/12/21 06:14 Basophils # (Manual) 0.0 10^3/uL (0-0.1) 08/12/21 06:14 Differential Comment MANUAL DIFFERENTIAL 08/12/21 06:14 Platelet Estimate NORMAL (130-450,000) (NORMAL) 08/12/21 06:14 Platelet Morphology NORMAL APPEARANCE (NORMAL) 08/12/21 06:14 RBC Morph Micro Appear 2+ HYPOCHROMASIA (NORMAL) 1+ MACROCYTOSIS (NORMAL) 08/12/21 06:14 RBC Morph Micro Appear 2+ HYPOCHROMASIA (NORMAL) 1+ MACROCYTOSIS (NORMAL) 08/12/21 06:14 Sodium 141 mmol/L (135-145) 08/15/21 05:52 Potassium 3.8 mmol/L (3.5-5.0) 08/15/21 05:52 Chloride 102 mmol/L (101-111) 08/15/21 05:52 Carbon Dioxide 24 mmol/L (21-32) 08/15/21 05:52 Anion Gap 15.0 (6-13) H 08/15/21 05:52 BUN 40 mg/dL (6-20) H 08/15/21 05:52 Creatinine 2.6 mg/dL (0.6-1.2) H 08/15/21 05:52 Estimated GFR (MDRD) 24 (>89) L 08/15/21 05:52 Glucose 102 mg/dL (70-100) H 08/15/21 05:52 Lactic Acid 2.2 mmol/L (0.5-2.2) 08/12/21 21:10 Calcium 8.8 mg/dL (8.5-10.3) 08/15/21 05:52 Magnesium 1.7 mg/dL (1.7-2.8) 08/11/21 22:06 Total Bilirubin 1.6 mg/dL (0.2-1.0) H 08/11/21 22:06 AST 37 IU/L (10-42) 08/11/21 22:06 ALT 19 IU/L (10-60) 08/11/21 22:06 Alkaline Phosphatase 174 IU/L (42-121) H 08/11/21 22:06 Troponin I High Sens 115.7 ng/L (2.3-19.7) H* 08/15/21 13:40 Total Protein 7.8 g/dL (6.7-8.2) 08/11/21 22:06 Albumin 4.1 g/dL (3.2-5.5) 08/11/21 22:06 Globulin 3.7 g/dL (2.1-4.2) 08/11/21 22:06 Albumin/Globulin Ratio 1.1 (1.0-2.2) 08/11/21 22:06 Lipase 30 U/L (22-51) 08/11/21 22:06 Urine Color DARK YELLOW 08/13/21 12:08 Urine Clarity CLEAR (CLEAR) 08/13/21 12:08 Urine pH 5.5 PH (5.0-7.5) 08/13/21 12:08 Ur Specific [place] 1.015 (1.002-1.030) 08/13/21 12:08 Urine Protein TRACE mg/dL (NEGATIVE) 08/13/21 12:08 Urine Glucose (UA) NEGATIVE mg/dL (NEGATIVE) 08/13/21 12:08 Urine Ketones TRACE mg/dL (NEGATIVE) 08/13/21 12:08 Urine Occult Blood SMALL (NEGATIVE) H 08/13/21 12:08 Urine Nitrite NEGATIVE (NEGATIVE) 08/13/21 12:08 Urine Bilirubin NEGATIVE (NEGATIVE) 08/13/21 12:08 Urine Urobilinogen 0.2 (NORMAL) E.U./dL (NORMAL) 08/13/21 12:08 Ur Leukocyte Esterase NEGATIVE (NEGATIVE) 08/13/21 12:08 Urine RBC 0-5 /HPF (0-5) 08/13/21 12:08 Urine WBC 0-3 /HPF (0-3) 08/13/21 12:08 Ur Squamous Epith Cells FEW Squamous (<= Few) 08/13/21 12:08 Amorphous Sediment Moderate /LPF 08/13/21 12:08 Urine Bacteria Moderate /HPF (None Seen) H 08/13/21 12:08 Urine Casts 0-2 Granular Casts /LPF 08/13/21 12:08 Urine Culture Comments NOT INDICATED 08/13/21 12:08 Nasal Adenovirus (PCR) NOT DETECTED 08/11/21 22:43 Nasal B. parapertussis DNA (PCR) NOT DETECTED 08/11/21 22:43 Nasal Coronavir 229E PCR NOT DETECTED 08/11/21 22:43 Nasal Coronavir HKU1 PCR NOT DETECTED 08/11/21 22:43 Nasal Coronavir NL63 PCR NOT DETECTED 08/11/21 22:43 Nasal Coronavir OC43 PCR NOT DETECTED 08/11/21 22:43 Nasal Enterovir/Rhinovir PCR NOT DETECTED 08/11/21 22:43 Nasal Influenza B PCR NOT DETECTED 08/11/21 22:43 Nasal Influenza A PCR NOT DETECTED 08/11/21 22:43 Nasal Parainfluen 1 PCR NOT DETECTED 08/11/21 22:43 Nasal Parainfluen 2 PCR NOT DETECTED 08/11/21 22:43 Nasal Parainfluen 3 PCR NOT DETECTED 08/11/21 22:43 Nasal Parainfluen 4 PCR NOT DETECTED 08/11/21 22:43 Nasal RSV (PCR) NOT DETECTED 08/11/21 22:43 Nasal B.pertussis DNA PCR NOT DETECTED 08/11/21 22:43 Nasal C.pneumoniae (PCR) NOT DETECTED 08/11/21 22:43 Valeriy Human Metapneumo PCR NOT DETECTED 08/11/21 22:43 Nasal M.pneumoniae (PCR) NOT DETECTED 08/11/21 22:43 Nasal SARS-CoV-2 (PCR) NOT DETECTED 08/11/21 22:43 - Procedures Procedures: Procedures EXCISION OF ASCENDING COLON, ENDO (08/15/16) EXCISION OF CECUM, ENDO, DIAGN (04/19/21) EXCISION OF DUODENUM, ENDO, DIAGN (04/19/21) EXCISION OF ESOPHAGOGASTRIC JUNCTION, ENDO, DIAGN (04/19/21) EXCISION OF ESOPHAGUS, ENDO, DIAGN (01/15/18) EXCISION OF ILEUM, ENDO, DIAGN (04/19/21) EXCISION OF LOWER ESOPHAGUS, ENDO, DIAGN (04/19/21) EXCISION OF STOMACH, PYLORUS, ENDO, DIAGN (04/19/21) INSPECTION OF LOWER INTESTINAL TRACT, ENDO (08/27/18) TRANSFUSE NONAUT RED BLOOD CELLS IN PERIPH VEIN, PERC (04/19/21) ABX Reporting Has patient been on IV antibiotics over the past 48 hours?: Yes Current Medications - Current Medications Current Medications: Active Medications Acetaminophen (Acetaminophen 325 Mg Tablet) 650 mg PO Q4HR PRN PRN Reason: Pain 1 to 4 Last Admin: 08/15/21 09:12 Dose: 650 mg Documented by: Atorvastatin Calcium (Atorvastatin 10 Mg Tablet) 10 mg PO QPM [facility] Last Admin: 08/14/21 20:57 Dose: 10 mg Documented by: Enoxaparin Sodium (Enoxaparin 80 Mg/0.8 Ml Syringe) 80 mg SUBQ Q24H [facility] Last Admin: 08/15/21 16:05 Dose: 80 mg Documented by: Famotidine (Famotidine 20 Mg Tablet) 20 mg PO BID [facility] Last Admin: 08/15/21 09:12 Dose: 20 mg Documented by: Piperacillin Sod/Tazobactam (Sod 3.375 gm/ Sodium Chloride) 100 mls @ 25 mls/hr IV Q8H [facility] Last Infusion: 08/15/21 16:20 Dose: Infused Documented by: Dopamine HCl/Dextrose (Dopamine) 800 mg in 500 mls @ 5.67 mls/hr IV .Q72H [facility]; Protocol Last Admin: 08/15/21 15:55 Dose: 2 mcg/kg/min, 5.67 mls/hr Documented by: Ondansetron HCl (Ondansetron Odt 4 Mg Tablet) 4 mg TL Q6HR PRN PRN Reason: Nausea / Vomiting Last Admin: 08/15/21 09:15 Dose: 4 mg Documented by: Ondansetron HCl (Ondansetron 4 Mg/2 Ml Vial) 4 mg IVP Q6HR PRN PRN Reason: Nausea / Vomiting Last Admin: 08/15/21 16:06 Dose: 4 mg Documented by: Pantoprazole Sodium (Pantoprazole 40 Mg Tablet) 40 mg PO DAILY [facility] Last Admin: 08/15/21 09:12 Dose: 40 mg Documented by: Prochlorperazine Edisylate (Prochlorperazine 10 Mg/2 Ml Vial) 10 mg IVP Q6HR PRN PRN Reason: Nausea / Vomiting Last Admin: 08/15/21 15:02 Dose: 10 mg Documented by: Promethazine HCl (Promethazine 25 Mg Tablet) 25 mg PO Q6H PRN PRN Reason: Nausea / Vomiting Saccharomyces Boulardii (Saccharomyces Boulardii 250 Mg Capsule) 250 mg PO BIDWM [facility] Last Admin: 08/15/21 09:11 Dose: 250 mg Documented by: Sodium Chloride (Sodium Chloride Flush 0.9% 10 Ml Syringe) 10 ml IVP PRN PRN PRN Reason: NEEDED PER PROVIDER ORDERS Last Admin: 08/14/21 13:08 Dose: 10 ml Documented by: Sodium Chloride (Sodium Chloride Flush 0.9% 10 Ml Syringe) 10 ml IVP 0100 ,0900,1700 [facility] Last Admin: 08/15/21 09:14 Dose: 10 ml Documented by: Tamsulosin HCl (Tamsulosin 0.4 Mg Capsule) 0.4 mg PO BID [facility] Last Admin: 08/15/21 09:12 Dose: 0.4 mg Documented by: Metoprolol Succinate [Toprol Xl] 25 mg ORAL DAILY 08/15/16 Simvastatin 20 mg ORAL QPM 08/15/16 Ferrous Sulfate 1 tab PO DAILY 01/14/18 Losartan Potassium 12.5 mg PO DAILY 01/14/18 Pantoprazole [Protonix] 40 mg PO DAILY 01/14/18 Umeclidinium Brm/Vilanterol Tr [Anoro Ellipta 62.5-25 Mcg INH] 1 puffs INH DAILY 01/14/18 Tamsulosin [Flomax] 0.4 mg PO BID 04/19/21 Torsemide 40 mg PO DAILY 04/19/21 allopurinoL [Zyloprim] 100 mg PO DAILY 04/19/21
[2021-08-15] MEDS ORDERED: SODIUM CHLORIDE 0.9% 500 ML IV ONE (14:36)
[2021-08-15] MEDS ORDERED: SODIUM CHLORIDE 0.9% 1,000 ML IV ONE (15:21)
[2021-08-15] MEDS ORDERED: DOPamine 800 MG/500 ML 800 MG/500 ML BAG IV SCH ×5 (16:00→19:46)
[2021-08-15] MEDS: ENOXAPARIN 80 MG/0.8 ML SYRINGE SUBQ SCH (16:05)
[2021-08-15 16:56] LABS: BASOPHILS # (AUTO) 0.1 10^3/uL (0.0-0.1); BASOPHILS % (AUTO) 0.5 %; EOSINOPHILS # (AUTO) 0.4 10^3/uL (0.0-0.7); EOSINOPHILS % (AUTO) 3.2 %; HCT - HEMATOCRIT 31.9 % (42.0-52.0); HGB - HEMOGLOBIN 10.2 g/dL (14.0-18.0); LYMPHOCYTES # (AUTO) 0.3 10^3/uL (1.5-3.5); MEAN CORPUSCULAR HEMOGLOBIN 31.1 pg (27.0-31.0); MEAN CORPUSCULAR VOLUME 97.3 fL (80.0-94.0); MEAN PLATELET VOLUME 11.5 fL (7.4-11.4); MONOCYTES # (AUTO) 1.1 10^3/uL (0.0-1.0); MONOCYTES % (AUTO) 7.8 %; NEUTROPHILS # (AUTO) 11.5 10^3/uL (1.5-6.6); NEUTROPHILS % (AUTO) 84.9 %; PLT - PLATELET COUNT 105 10^3/uL (130-450); RED BLOOD COUNT 3.28 10^6/uL (4.70-6.10); RED CELL DISTRIBUTION WIDTH 17.6 % (12.0-15.0); WHITE BLOOD COUNT 13.6 x10^3/uL (4.8-10.8)
[2021-08-15 17:08] LABS: ALBUMIN 2.3 g/dL (3.2-5.5); ALBUMIN/GLOBULIN RATIO 0.8 (1.0-2.2); BILIRUBIN,TOTAL 5.6 mg/dL (0.2-1.0); CALCIUM 8.3 mg/dL (8.5-10.3); CREATININE 2.7 mg/dL (0.6-1.2); POTASSIUM 3.3 mmol/L (3.5-5.0); TOTAL PROTEIN 5.3 g/dL (6.7-8.2)
[2021-08-15] MEDS ORDERED: LIDOCAINE 2% URO-JET 5 ML SYRINGE UR ONE (17:19)
[2021-08-15] MEDS: D5.45NS W/20 MEQ KCL 1,000 ML IV SCH (17:52)
[2021-08-15] MEDS: ATORVASTATIN 10 MG TABLET PO SCH (20:36)
[2021-08-15 22:31] LABS: ABG BASE EXCESS -0.5 mmol/L (-2.0-3.0); ABG HCO3 24.8 mmol/L (22.0-26.0); ABG OXYGEN SATURATION 94 % (94-98); ABG PCO2 43 mmHg (34-45); ABG PH 7.38 (7.35-7.45); ABG PO2 68 mmHg (80-100); ABG TCO2 26.1 MMOL/L (21.0-29.0); ALLEN TEST POSITIVE
[2021-08-15] MEDS: DOPamine 800 MG/500 ML 800 MG/500 ML BAG IV SCH (22:39)
[2021-08-16] MEDS: D5.45NS W/20 MEQ KCL 1,000 ML IV SCH (03:43)
[2021-08-16] MEDS: PIPERACILLIN/TAZOBACTAM 3.375 GM in SODIUM CHLORIDE 0.9% MINIBAG 100 ML IV SCH ×3 (04:12→22:16)
[2021-08-16] MEDS: SODIUM CHLORIDE FLUSH 0.9% 10 ML SYRINGE IVP SCH ×5 (05:23→18:29)
[2021-08-16 05:50] LABS: BASOPHILS # (AUTO) 0.1 10^3/uL (0.0-0.1); BASOPHILS % (AUTO) 0.5 %; EOSINOPHILS % (AUTO) 0.1 %; HCT - HEMATOCRIT 32.4 % (42.0-52.0); HGB - HEMOGLOBIN 10.2 g/dL (14.0-18.0); LYMPHOCYTES # (AUTO) 0.5 10^3/uL (1.5-3.5); LYMPHOCYTES % (AUTO) 2.9 %; MEAN CORPUSCULAR HEMOGLOBIN 30.5 pg (27.0-31.0); MEAN CORPUSCULAR HGB CONC 31.5 g/dL (32.0-36.0); MEAN PLATELET VOLUME 12.5 fL (7.4-11.4); MONOCYTES # (AUTO) 1.3 10^3/uL (0.0-1.0); MONOCYTES % (AUTO) 8.3 %; NEUTROPHILS # (AUTO) 13.4 10^3/uL (1.5-6.6); NEUTROPHILS % (AUTO) 87.1 %; PLT - PLATELET COUNT 144 10^3/uL (130-450); RED BLOOD COUNT 3.34 10^6/uL (4.70-6.10); RED CELL DISTRIBUTION WIDTH 17.8 % (12.0-15.0); WHITE BLOOD COUNT 15.4 x10^3/uL (4.8-10.8)
[2021-08-16 05:57] LABS: CALCIUM 8.2 mg/dL (8.5-10.3); CREATININE 2.7 mg/dL (0.6-1.2); POTASSIUM 4.1 mmol/L (3.5-5.0)
--- NOTE | 2021-08-16 08:58 | XRAY Report ---
PROCEDURE: Chest 1 View X-Ray INDICATIONS: Leukocytosis, Hypotension, Elevated troponin TECHNIQUE: One view of the chest was acquired. COMPARISON: 08/15/2021, 08/12/2021 FINDINGS: Surgical changes and devices: Left chest wall pacemaker and median sternotomy wire positions are unch anged.. Lungs and pleura: Persistent right-sided pleural effusion is seen with right middle and lower lobe at electasis. Mild pulmonary vascular congestion is seen. There is suggestion of mild pulmonary edema. N o gross pneumothorax. Trace left pleural effusion is likely present. Mediastinum: Mediastinal contours appear normal. Heart size is enlarged. Bones and chest wall: No suspicious bony lesions. Overlying soft tissues appear unremarkable. IMPRESSION: Persistent small to moderate right pleural effusion with right middle and lower lobe atelectasis. Pul monary edema and suggestion of trace left pleural effusion. No gross pneumothorax. Reviewed by: Blue Vera MD on 08/16/2021 8:57 AM PDT Approved by: Blue Vera MD on 08/16/2021 8:57 AM PDT Station ID: [id number]
[2021-08-16] MEDS: polyethylene glycoL 3350 17 GM PACKET PO SCH (10:44)
[2021-08-16] MEDS: DOCUSATE SODIUM 250 MG CAPSULE PO SCH (10:45)
[2021-08-16] MEDS: SACCHAROMYCES BOULARDII 250 MG CAPSULE PO SCH ×2 (10:45→18:28)
[2021-08-16] MEDS: TAMSULOSIN 0.4 MG CAPSULE PO SCH ×2 (10:46→22:16)
--- NOTE | 2021-08-16 14:51 | PROVIDER PROGRESS NOTE ---
Assessment/Plan - Problem List (1) Hypotension Assessment/Plan: Patient became severely hypotensive yesterday requiring IV dopamine infusion and also had concurrent elevated troponin levels leading to concern for possible NSTEMI or type II WA. Has responded fairly well to IV fluids as well as dopamine infusion and although was previously mentating poorly with lethargic and obtunded status has since reverted to his alert baseline mental status. Currently continues at dopamine 5 mcg/kg/min Still somewhat hypotensive but MAP is in acceptable range He is relatively asymptomatic but has not ambulated as he chooses not to. Given the patient's wishes for comfort measures only, anticipate we will withdraw dopamine soon once everyone is on the same page with his goals of care. (2) Cardiac shock syndrome Assessment/Plan: As above, hypotensive with elevated cardiac enzymes. Possibly type II WA but in any case patient does not wish to have any further treatment. He is alert and oriented and we will honor his wishes. (3) Bacteremia Assessment/Plan: Uremia appears to be responding to antibiotics with most recent blood cultures negative. Currently on Zosyn but again based on patient expressed wishes for head CT passing, we will likely be withdrawing care soon once family members are allowed to discuss with patient. Palliative consult will be requested. - Current Meds Current Meds: Current Medications Generic Name Dose Route Start Last Admin Trade Name Freq PRN Reason Stop Dose Admin Acetaminophen 650 mg 08/12/21 00:46 08/15/21 09:12 Acetaminophen 325 Mg Tablet PO 650 mg Q4HR PRN Administration Pain 1 to 4 Atorvastatin Calcium 10 mg 08/14/21 21:00 08/15/21 20:36 Atorvastatin 10 Mg Tablet PO Not Given QPM FLORES Docusate Sodium 250 - 500 mg 08/16/21 10:00 08/16/21 10:45 Docusate Sodium 250 Mg Capsule PO 250 mg DAILY FLORES Administration Enoxaparin Sodium 80 mg 08/15/21 16:00 08/15/21 16:05 Enoxaparin 80 Mg/0.8 Ml Syringe SUBQ 80 mg Q24H FLORES Administration Famotidine 20 mg 08/12/21 09:00 08/15/21 20:36 Famotidine 20 Mg Tablet PO Not Given BID FLORES Piperacillin Sod/Tazobactam 100 mls @ 25 mls/hr 08/12/21 12:00 08/16/21 13:12 Sod 3.375 gm/ Sodium Chloride IV 25 mls/hr Q8H FLORES Administration Dopamine HCl/Dextrose 800 mg in 500 mls @ 14.175 mls/hr 08/15/21 22:18 08/16/21 10:11 Dopamine IV 5 mcg/kg/min .[id number] FLORES 14.175 mls/hr Titration Protocol 5 MCG/KG/MIN Ondansetron HCl 4 mg 08/12/21 00:46 08/15/21 09:15 Ondansetron Odt 4 Mg Tablet TL 4 mg Q6HR PRN Administration Nausea / Vomiting Ondansetron HCl 4 mg 08/12/21 00:46 08/15/21 16:06 Ondansetron 4 Mg/2 Ml Vial IVP 4 mg Q6HR PRN Administration Nausea / Vomiting Pantoprazole Sodium 40 mg 08/12/21 09:00 08/15/21 09:12 Pantoprazole 40 Mg Tablet PO 40 mg DAILY FLORES Administration Polyethylene Glycol 17 gm 08/16/21 11:00 08/16/21 10:44 Polyethylene Glycol 3350 17 Gm Packet PO 17 gm DAILY FLORES Administration Prochlorperazine Edisylate 10 mg 08/12/21 00:46 08/15/21 15:02 Prochlorperazine 10 Mg/2 Ml Vial IVP 10 mg Q6HR PRN Administration Nausea / Vomiting Promethazine HCl 25 mg 08/12/21 00:55 08/15/21 18:25 Promethazine 25 Mg Tablet PO 25 mg Q6H PRN Administration Nausea / Vomiting Saccharomyces Boulardii 250 mg 08/12/21 08:00 08/16/21 10:45 Saccharomyces Boulardii 250 Mg Capsule PO 250 mg BIDWM FLORES Administration Sodium Chloride 10 ml 08/12/21 00:46 08/14/21 13:08 Sodium Chloride Flush 0.9% 10 Ml Syringe IVP 10 ml PRN PRN Administration NEEDED PER PROVIDER ORDERS Sodium Chloride 10 ml 08/12/21 01:00 08/16/21 09:43 Sodium Chloride Flush 0.9% 10 Ml Syringe IVP 10 ml 0100,0900,1700 FLORES Administration Tamsulosin HCl 0.4 mg 08/12/21 09:00 08/16/21 10:46 Tamsulosin 0.4 Mg Capsule PO 0.4 mg BID FLORES Administration - Lab Result Fish Bone Diagrams: 08/16/21 04:59 08/16/21 04:59 Subjective - Subjective Patient Reports: Resting Comfortably (He has no complaints but he does not want to participate in physical therapy.He denies any pain including chest pain.) Objective Vital Signs: Vital Signs - 24 hr 08/15/21 08/15/21 08/15/21 15:27 15:50 16:50 Temperature Heart Rate [ Brachial] Heart Rate [ Monitoring electrodes] Heart Rate [ 70 70 70 Radial] Respiratory 12 Rate Blood Pressure 74/43 L 84/48 L [Left Brachial artery] Blood Pressure 62/39 L [Right Radial artery] O2 Saturation 98 08/15/21 08/15/21 08/15/21 17:26 17:52 18:49 Temperature Heart Rate [ Brachial] Heart Rate [ Monitoring electrodes] Heart Rate [ 74 69 69 Radial] Respiratory Rate Blood Pressure 81/37 L 92/40 L 92/41 L [Left Brachial artery] Blood Pressure [Right Radial artery] O2 Saturation 08/15/21 08/15/21 08/15/21 19:07 19:30 20:00 Temperature Heart Rate [ 70 76 70 Brachial] Heart Rate [ Monitoring electrodes] Heart Rate [ Radial] Respiratory 16 Rate Blood Pressure 81/36 L 92/35 L 109/46 L [Left Brachial artery] Blood Pressure [Right Radial artery] O2 Saturation 97 08/15/21 08/15/21 08/15/21 20:37 21:16 22:00 Temperature 36.6 C Heart Rate [ 80 70 78 Brachial] Heart Rate [ Monitoring electrodes] Heart Rate [ Radial] Respiratory 22 Rate Blood Pressure 113/48 L 97/45 L 113/56 L [Left Brachial artery] Blood Pressure [Right Radial artery] O2 Saturation 100 08/15/21 08/16/21 08/16/21 23:00 00:00 01:00 Temperature Heart Rate [ 89 Brachial] Heart Rate [ Monitoring electrodes] Heart Rate [ 81 80 Radial] Respiratory 16 17 9 L Rate Blood Pressure 109/52 L 109/54 L 112/62 [Left Brachial artery] Blood Pressure [Right Radial artery] O2 Saturation 100 100 100 08/16/21 08/16/21 08/16/21 01:57 03:00 04:00 Temperature 36.7 C Heart Rate [ Brachial] Heart Rate [ 75 72 72 Monitoring electrodes] Heart Rate [ Radial] Respiratory 15 18 19 Rate Blood Pressure 110/58 L 115/59 L 99/55 L [Left Brachial artery] Blood Pressure [Right Radial artery] O2 Saturation 100 100 100 08/16/21 08/16/21 08/16/21 05:00 06:00 07:00 Temperature 36.4 C L Heart Rate [ Brachial] Heart Rate [ 72 70 64 Monitoring electrodes] Heart Rate [ Radial] Respiratory 17 21 25 H Rate Blood Pressure 123/64 105/64 [Left Brachial artery] Blood Pressure [Right Radial artery] O2 Saturation 100 100 100 08/16/21 08/16/21 08/16/21 08:00 09:00 09:27 Temperature 36.6 C Heart Rate [ Brachial] Heart Rate [ 71 72 Monitoring electrodes] Heart Rate [ Radial] Respiratory 18 25 H Rate Blood Pressure 103/57 L 103/57 L [Left Brachial artery] Blood Pressure [Right Radial artery] O2 Saturation 98 98 08/16/21 08/16/21 08/16/21 10:00 11:00 12:50 Temperature 36.7 C Heart Rate [ Brachial] Heart Rate [ 70 70 75 Monitoring electrodes] Heart Rate [ Radial] Respiratory 18 17 21 Rate Blood Pressure 96/51 L 101/51 L 108/54 L [Left Brachial artery] Blood Pressure [Right Radial artery] O2 Saturation 97 97 98 08/16/21 14:00 Temperature 36.6 C Heart Rate [ Brachial] Heart Rate [ 70 Monitoring electrodes] Heart Rate [ Radial] Respiratory 21 Rate Blood Pressure 96/51 L [Left Brachial artery] Blood Pressure [Right Radial artery] O2 Saturation 98 Oxygen O2 Source Room air Oxygen Flow Rate 3 I&O (Last 24 Hrs): Intake and Output Totals x24h 08/14/21 08/15/21 08/16/21 23:59 23:59 23:59 Intake Total 1570 2063.710 3133.899 Output Total 115 516 Balance 1570 5831.218 9038.899 General: Alert, Oriented x3, Cooperative, No acute distress Neuro: Alert, Non Focal, CN 2-12 Grossly Intact, Oriented Times 3 Cardiovascular: Regular rate, Normal S1, Normal S2 Respiratory: Chest non-tender, No respiratory distress, Breath sounds nml Abdomen: Normal bowel sounds Skin: No rashes - Results Results: Laboratory Results WBC 15.4 x10^3/uL (4.8-10.8) H 08/16/21 04:59 RBC 3.34 10^6/uL (4.70-6.10) L 08/16/21 04:59 Hgb 10.2 g/dL (14.0-18.0) L 08/16/21 04:59 Hct 32.4 % (42.0-52.0) L 08/16/21 04:59 MCV 97.0 fL (80.0-94.0) H 08/16/21 04:59 MCH 30.5 pg (27.0-31.0) 08/16/21 04:59 MCHC 31.5 g/dL (32.0-36.0) L 08/16/21 04:59 RDW 17.8 % (12.0-15.0) H 08/16/21 04:59 Plt Count 144 10^3/uL (130-450) 08/16/21 04:59 MPV 12.5 fL (7.4-11.4) H 08/16/21 04:59 Neut # (Auto) 13.4 10^3/uL (1.5-6.6) H 08/16/21 04:59 Lymph # (Auto) 0.5 10^3/uL (1.5-3.5) L 08/16/21 04:59 Green # (Auto) 1.3 10^3/uL (0.0-1.0) H 08/16/21 04:59 Eos # (Auto) 0.0 10^3/uL (0.0-0.7) 08/16/21 04:59 Baso # (Auto) 0.1 10^3/uL (0.0-0.1) 08/16/21 04:59 Absolute Nucleated RBC 0.00 x10^3/uL 08/16/21 04:59 Total Counted 100 08/12/21 06:14 Band Neuts % (Manual) 37 % (0-10) H 08/12/21 06:14 Reactive Lymphs % (Man) 1 % 08/12/21 06:14 Abnorm Lymph % (Manual) 0 % 08/12/21 06:14 Nucleated RBC % 0.0 /100WBC 08/16/21 04:59 Neutrophils # (Manual) 8.2 10^3/uL (1.5-6.6) H 08/12/21 06:14 Lymphocytes # (Manual) 0.4 10^3/uL (1.5-3.5) L 08/12/21 06:14 Monocytes # (Manual) 0.6 10^3/uL (0.0-1.0) 08/12/21 06:14 Eosinophils # (Manual) 0.0 10^3/uL (0-0.7) 08/12/21 06:14 Basophils # (Manual) 0.0 10^3/uL (0-0.1) 08/12/21 06:14 Differential Comment MANUAL DIFFERENTIAL 08/12/21 06:14 Platelet Estimate NORMAL (130-450,000) (NORMAL) 08/12/21 06:14 Platelet Morphology NORMAL APPEARANCE (NORMAL) 08/12/21 06:14 RBC Morph Micro Appear 2+ HYPOCHROMASIA (NORMAL) 1+ MACROCYTOSIS (NORMAL) 08/12/21 06:14 RBC Morph Micro Appear 2+ HYPOCHROMASIA (NORMAL) 1+ MACROCYTOSIS (NORMAL) 08/12/21 06:14 Bld Gas Analysis Time 0 08/15/21 22:23 Sample Site RIGHT RADIAL 08/15/21 22:23 ABG pH 7.38 (7.35-7.45) 08/15/21 22:23 ABG pCO2 43 mmHg (34-45) 08/15/21 22:23 ABG pO2 68 mmHg (80-100) L 08/15/21 22:23 ABG HCO3 24.8 mmol/L (22.0-26.0) 08/15/21 22:23 ABG Total CO2 26.1 MMOL/L (21.0-29.0) 08/15/21 22:23 ABG O2 Saturation 94 % (94-98) 08/15/21 22:23 ABG Base Excess -0.5 mmol/L (-2.0-3.0) 08/15/21 22:23 Da Test POSITIVE 08/15/21 22:23 O2 Delivery Device NASAL CANNULA 08/15/21 22:23 O2 Liters/Min 2.00 LPM 08/15/21 22:23 Sodium 142 mmol/L (135-145) 08/16/21 04:59 Potassium 4.1 mmol/L (3.5-5.0) 08/16/21 04:59 Chloride 109 mmol/L (101-111) 08/16/21 04:59 Carbon Dioxide 24 mmol/L (21-32) 08/16/21 04:59 Anion Gap 9.0 (6-13) 08/16/21 04:59 BUN 44 mg/dL (6-20) H 08/16/21 04:59 Creatinine 2.7 mg/dL (0.6-1.2) H 08/16/21 04:59 Estimated GFR (MDRD) 23 (>89) L 08/16/21 04:59 Glucose 143 mg/dL (70-100) H 08/16/21 04:59 Lactic Acid 2.2 mmol/L (0.5-2.2) 08/12/21 21:10 Calcium 8.2 mg/dL (8.5-10.3) L 08/16/21 04:59 Magnesium 1.7 mg/dL (1.7-2.8) 08/11/21 22:06 Total Bilirubin 5.6 mg/dL (0.2-1.0) H 08/15/21 16:49 AST 31 IU/L (10-42) 08/15/21 16:49 ALT 31 IU/L (10-60) 08/15/21 16:49 Alkaline Phosphatase 276 IU/L (42-121) H 08/15/21 16:49 Troponin I High Sens 136.4 ng/L (2.3-19.7) H* 08/15/21 21:56 Total Protein 5.3 g/dL (6.7-8.2) L 08/15/21 16:49 Albumin 2.3 g/dL (3.2-5.5) L 08/15/21 16:49 Globulin 3.0 g/dL (2.1-4.2) 08/15/21 16:49 Albumin/Globulin Ratio 0.8 (1.0-2.2) L 08/15/21 16:49 Lipase 30 U/L (22-51) 08/11/21 22:06 Urine Color DARK YELLOW 08/13/21 12:08 Urine Clarity CLEAR (CLEAR) 08/13/21 12:08 Urine pH 5.5 PH (5.0-7.5) 08/13/21 12:08 Ur Specific [place] 1.015 (1.002-1.030) 08/13/21 12:08 Urine Protein TRACE mg/dL (NEGATIVE) 08/13/21 12:08 Urine Glucose (UA) NEGATIVE mg/dL (NEGATIVE) 08/13/21 12:08 Urine Ketones TRACE mg/dL (NEGATIVE) 08/13/21 12:08 Urine Occult Blood SMALL (NEGATIVE) H 08/13/21 12:08 Urine Nitrite NEGATIVE (NEGATIVE) 08/13/21 12:08 Urine Bilirubin NEGATIVE (NEGATIVE) 08/13/21 12:08 Urine Urobilinogen 0.2 (NORMAL) E.U./dL (NORMAL) 08/13/21 12:08 Ur Leukocyte Esterase NEGATIVE (NEGATIVE) 08/13/21 12:08 Urine RBC 0-5 /HPF (0-5) 08/13/21 12:08 Urine WBC 0-3 /HPF (0-3) 08/13/21 12:08 Ur Squamous Epith Cells FEW Squamous (<= Few) 08/13/21 12:08 Amorphous Sediment Moderate /LPF 08/13/21 12:08 Urine Bacteria Moderate /HPF (None Seen) H 08/13/21 12:08 Urine Casts 0-2 Granular Casts /LPF 08/13/21 12:08 Urine Culture Comments NOT INDICATED 08/13/21 12:08 Nasal Adenovirus (PCR) NOT DETECTED 08/11/21 22:43 Nasal B. parapertussis DNA (PCR) NOT DETECTED 08/11/21 22:43 Nasal Coronavir 229E PCR NOT DETECTED 08/11/21 22:43 Nasal Coronavir HKU1 PCR NOT DETECTED 08/11/21 22:43 Nasal Coronavir NL63 PCR NOT DETECTED 08/11/21 22:43 Nasal Coronavir OC43 PCR NOT DETECTED 08/11/21 22:43 Nasal Enterovir/Rhinovir PCR NOT DETECTED 08/11/21 22:43 Nasal Influenza B PCR NOT DETECTED 08/11/21 22:43 Nasal Influenza A PCR NOT DETECTED 08/11/21 22:43 Nasal Parainfluen 1 PCR NOT DETECTED 08/11/21 22:43 Nasal Parainfluen 2 PCR NOT DETECTED 08/11/21 22:43 Nasal Parainfluen 3 PCR NOT DETECTED 08/11/21 22:43 Nasal Parainfluen 4 PCR NOT DETECTED 08/11/21 22:43 Nasal RSV (PCR) NOT DETECTED 08/11/21 22:43 Nasal Screen MRSA (PCR) NEGATIVE (NEGATIVE) 08/15/21 21:55 Nasal B.pertussis DNA PCR NOT DETECTED 08/11/21 22:43 Nasal C.pneumoniae (PCR) NOT DETECTED 08/11/21 22:43 Valeriy Human Metapneumo PCR NOT DETECTED 08/11/21 22:43 Nasal M.pneumoniae (PCR) NOT DETECTED 08/11/21 22:43 Nasal SARS-CoV-2 (PCR) NOT DETECTED 08/11/21 22:43 - Procedures Procedures: Procedures EXCISION OF ASCENDING COLON, ENDO (08/15/16) EXCISION OF CECUM, ENDO, DIAGN (04/19/21) EXCISION OF DUODENUM, ENDO, DIAGN (04/19/21) EXCISION OF ESOPHAGOGASTRIC JUNCTION, ENDO, DIAGN (04/19/21) EXCISION OF ESOPHAGUS, ENDO, DIAGN (01/15/18) EXCISION OF ILEUM, ENDO, DIAGN (04/19/21) EXCISION OF LOWER ESOPHAGUS, ENDO, DIAGN (04/19/21) EXCISION OF STOMACH, PYLORUS, ENDO, DIAGN (04/19/21) INSPECTION OF LOWER INTESTINAL TRACT, ENDO (08/27/18) TRANSFUSE NONAUT RED BLOOD CELLS IN PERIPH VEIN, PERC (04/19/21) ABX Reporting Has patient been on IV antibiotics over the past 48 hours?: No
[2021-08-16] MEDS: ENOXAPARIN 80 MG/0.8 ML SYRINGE SUBQ SCH (15:57)
[2021-08-16] MEDS: PANTOPRAZOLE 40 MG TABLET PO SCH (18:27)
[2021-08-16] MEDS: ATORVASTATIN 10 MG TABLET PO SCH (22:16)
[2021-08-17] MEDS: DOPamine 800 MG/500 ML 800 MG/500 ML BAG IV SCH (06:11)
[2021-08-17] MEDS: SODIUM CHLORIDE FLUSH 0.9% 10 ML SYRINGE IVP SCH ×4 (06:11→23:02)
[2021-08-17] MEDS: PIPERACILLIN/TAZOBACTAM 3.375 GM in SODIUM CHLORIDE 0.9% MINIBAG 100 ML IV SCH ×3 (06:11→19:32)
[2021-08-17] MEDS: polyethylene glycoL 3350 17 GM PACKET PO SCH (08:19)
[2021-08-17] MEDS: PANTOPRAZOLE 40 MG TABLET PO SCH (08:21)
[2021-08-17] MEDS: DOCUSATE SODIUM 250 MG CAPSULE PO SCH (08:21)
[2021-08-17] MEDS: TAMSULOSIN 0.4 MG CAPSULE PO SCH ×2 (12:42→20:13)
[2021-08-17] MEDS: SACCHAROMYCES BOULARDII 250 MG CAPSULE PO SCH ×2 (12:42→17:13)
--- NOTE | 2021-08-17 13:05 | PROVIDER PROGRESS NOTE ---
Assessment/Plan - Problem List (1) Hypotension Assessment/Plan: Patient became severely hypotensive yesterday requiring IV dopamine infusion and also had concurrent elevated troponin levels leading to concern for possible NSTEMI or type II AK. Has responded fairly well to IV fluids as well as dopamine infusion and although was previously mentating poorly with lethargic and obtunded status has since reverted to his alert baseline mental status. Currently continues at dopamine about 4 mcg/kg/min Still somewhat hypotensive but MAP is in acceptable range He is relatively asymptomatic but has not ambulated as he chooses not to. Given the patient's wishes for comfort measures only, will try to wean off dopamine today (2) Cardiac shock syndrome Assessment/Plan: As above, hypotensive with elevated cardiac enzymes. Possibly type II AK but in any case patient does not wish to have any further treatment. He is alert and oriented and we will honor his wishes. (3) Bacteremia Assessment/Plan: Bactermia appears to be responding to antibiotics with most recent blood cultures negative. Currently on Zosyn but again based on patient expressed wishes no further medical treatment, we will likely be withdrawing care soon once family members are allowed to discuss with patient, and discharge plan can be set up. Hospice consult requested. - Current Meds Current Meds: Current Medications Generic Name Dose Route Start Last Admin Trade Name Freq PRN Reason Stop Dose Admin Acetaminophen 650 mg 08/12/21 00:46 08/15/21 09:12 Acetaminophen 325 Mg Tablet PO 650 mg Q4HR PRN Administration Pain 1 to 4 Atorvastatin Calcium 10 mg 08/14/21 21:00 08/16/21 22:16 Atorvastatin 10 Mg Tablet PO Not Given QPM FLORES Docusate Sodium 250 - 500 mg 08/16/21 10:00 08/17/21 08:21 Docusate Sodium 250 Mg Capsule PO 250 mg DAILY FLORES Administration Enoxaparin Sodium 80 mg 08/15/21 16:00 08/16/21 15:57 Enoxaparin 80 Mg/0.8 Ml Syringe SUBQ 80 mg Q24H FLORES Administration Piperacillin Sod/Tazobactam 100 mls @ 25 mls/hr 08/12/21 12:00 08/17/21 12:38 Sod 3.375 gm/ Sodium Chloride IV 25 mls/hr Q8H FLORES Administration Dopamine HCl/Dextrose 800 mg in 500 mls @ 14.175 mls/hr 08/15/21 22:18 08/17/21 08:30 Dopamine IV 0 mcg/kg/min .[id number] FLORES 0 mls/hr Titration Protocol 5 MCG/KG/MIN Ondansetron HCl 4 mg 08/12/21 00:46 08/15/21 09:15 Ondansetron Odt 4 Mg Tablet TL 4 mg Q6HR PRN Administration Nausea / Vomiting Ondansetron HCl 4 mg 08/12/21 00:46 08/15/21 16:06 Ondansetron 4 Mg/2 Ml Vial IVP 4 mg Q6HR PRN Administration Nausea / Vomiting Pantoprazole Sodium 40 mg 08/12/21 09:00 08/17/21 08:21 Pantoprazole 40 Mg Tablet PO 40 mg DAILY FLORES Administration Polyethylene Glycol 17 gm 08/16/21 11:00 08/17/21 08:19 Polyethylene Glycol 3350 17 Gm Packet PO 17 gm DAILY FLORES Administration Prochlorperazine Edisylate 10 mg 08/12/21 00:46 08/15/21 15:02 Prochlorperazine 10 Mg/2 Ml Vial IVP 10 mg Q6HR PRN Administration Nausea / Vomiting Promethazine HCl 25 mg 08/12/21 00:55 08/15/21 18:25 Promethazine 25 Mg Tablet PO 25 mg Q6H PRN Administration Nausea / Vomiting Saccharomyces Boulardii 250 mg 08/12/21 08:00 08/17/21 12:42 Saccharomyces Boulardii 250 Mg Capsule PO 250 mg BIDWM FLORES Administration Sodium Chloride 10 ml 08/12/21 00:46 08/14/21 13:08 Sodium Chloride Flush 0.9% 10 Ml Syringe IVP 10 ml PRN PRN Administration NEEDED PER PROVIDER ORDERS Sodium Chloride 10 ml 08/12/21 01:00 08/17/21 12:40 Sodium Chloride Flush 0.9% 10 Ml Syringe IVP 10 ml 0100,0900,1700 FLORES Administration Tamsulosin HCl 0.4 mg 08/12/21 09:00 08/17/21 12:42 Tamsulosin 0.4 Mg Capsule PO 0.4 mg BID FLORES Administration - Lab Result Fish Bone Diagrams: 08/16/21 04:59 08/16/21 04:59 Subjective - Subjective Patient Reports: Feeling Better, Resting Comfortably, No Complaints, Other (Wants to - asking about physician assisted suicide) Objective Vital Signs: Vital Signs - 24 hr 08/16/21 08/16/21 08/16/21 14:00 16:00 17:00 Temperature 36.6 C 36.5 C Heart Rate [ 70 70 70 Monitoring electrodes] Respiratory 21 19 22 Rate Blood Pressure 96/51 L 97/58 L 110/57 L [Left Brachial artery] O2 Saturation 98 97 96 08/16/21 08/16/21 08/16/21 18:00 19:00 20:00 Temperature 36.8 C Heart Rate [ 75 75 70 Monitoring electrodes] Respiratory 20 20 20 Rate Blood Pressure 96/51 L 106/55 L 83/66 L [Left Brachial artery] O2 Saturation 96 97 96 08/16/21 08/16/21 08/16/21 21:00 22:00 23:00 Temperature Heart Rate [ 70 70 78 Monitoring electrodes] Respiratory 23 20 20 Rate Blood Pressure 91/50 L 110/58 L 114/60 [Left Brachial artery] O2 Saturation 97 93 96 08/17/21 08/17/21 08/17/21 00:00 01:00 01:58 Temperature 36.8 C Heart Rate [ 77 70 74 Monitoring electrodes] Respiratory 23 20 21 Rate Blood Pressure 98/50 L 101/61 114/60 [Left Brachial artery] O2 Saturation 97 96 97 08/17/21 08/17/21 08/17/21 03:00 03:56 05:00 Temperature 36.8 C Heart Rate [ 70 71 70 Monitoring electrodes] Respiratory 19 21 21 Rate Blood Pressure 91/46 L 108/55 L [Left Brachial artery] O2 Saturation 95 97 95 08/17/21 08/17/21 08/17/21 06:00 07:00 08:00 Temperature Heart Rate [ 70 71 70 Monitoring electrodes] Respiratory 21 20 29 H Rate Blood Pressure 94/53 L 111/60 114/67 [Left Brachial artery] O2 Saturation 95 96 95 08/17/21 08/17/21 08/17/21 08:15 08:30 08:45 Temperature Heart Rate [ 70 70 70 Monitoring electrodes] Respiratory 24 33 H 26 H Rate Blood Pressure 124/63 124/62 113/52 L [Left Brachial artery] O2 Saturation 96 95 97 08/17/21 08/17/21 08/17/21 09:00 10:00 10:15 Temperature Heart Rate [ 72 70 70 Monitoring electrodes] Respiratory 21 21 27 H Rate Blood Pressure 103/52 L 81/43 L 101/54 L [Left Brachial artery] O2 Saturation 100 99 08/17/21 08/17/21 08/17/21 10:30 11:00 12:00 Temperature Heart Rate [ 70 71 74 Monitoring electrodes] Respiratory 19 21 25 H Rate Blood Pressure 84/50 L 98/56 L 105/60 [Left Brachial artery] O2 Saturation 100 98 99 Oxygen O2 Source Room air Oxygen Flow Rate 3 I&O (Last 24 Hrs): Intake and Output Totals x24h 08/15/21 08/16/21 08/17/21 23:59 23:59 23:59 Intake Total 2063.710 3506.399 1073.160 Output Total 115 796 570 Balance 0477.100 5821.399 503.160 General: Alert, Oriented x3, Other (Very mentally acute and well oriented.) HEENT: Atraumatic Neuro: Alert, CN 2-12 Grossly Intact, Oriented Times 3 Respiratory: No respiratory distress - Results Results: Laboratory Results WBC 15.4 x10^3/uL (4.8-10.8) H 08/16/21 04:59 RBC 3.34 10^6/uL (4.70-6.10) L 08/16/21 04:59 Hgb 10.2 g/dL (14.0-18.0) L 08/16/21 04:59 Hct 32.4 % (42.0-52.0) L 08/16/21 04:59 MCV 97.0 fL (80.0-94.0) H 08/16/21 04:59 MCH 30.5 pg (27.0-31.0) 08/16/21 04:59 MCHC 31.5 g/dL (32.0-36.0) L 08/16/21 04:59 RDW 17.8 % (12.0-15.0) H 08/16/21 04:59 Plt Count 144 10^3/uL (130-450) 08/16/21 04:59 MPV 12.5 fL (7.4-11.4) H 08/16/21 04:59 Neut # (Auto) 13.4 10^3/uL (1.5-6.6) H 08/16/21 04:59 Lymph # (Auto) 0.5 10^3/uL (1.5-3.5) L 08/16/21 04:59 [place] # (Auto) 1.3 10^3/uL (0.0-1.0) H 08/16/21 04:59 Eos # (Auto) 0.0 10^3/uL (0.0-0.7) 08/16/21 04:59 Baso # (Auto) 0.1 10^3/uL (0.0-0.1) 08/16/21 04:59 Absolute Nucleated RBC 0.00 x10^3/uL 08/16/21 04:59 Total Counted 100 08/12/21 06:14 Band Neuts % (Manual) 37 % (0-10) H 08/12/21 06:14 Reactive Lymphs % (Man) 1 % 08/12/21 06:14 Abnorm Lymph % (Manual) 0 % 08/12/21 06:14 Nucleated RBC % 0.0 /100WBC 08/16/21 04:59 Neutrophils # (Manual) 8.2 10^3/uL (1.5-6.6) H 08/12/21 06:14 Lymphocytes # (Manual) 0.4 10^3/uL (1.5-3.5) L 08/12/21 06:14 Monocytes # (Manual) 0.6 10^3/uL (0.0-1.0) 08/12/21 06:14 Eosinophils # (Manual) 0.0 10^3/uL (0-0.7) 08/12/21 06:14 Basophils # (Manual) 0.0 10^3/uL (0-0.1) 08/12/21 06:14 Differential Comment MANUAL DIFFERENTIAL 08/12/21 06:14 Platelet Estimate NORMAL (130-450,000) (NORMAL) 08/12/21 06:14 Platelet Morphology NORMAL APPEARANCE (NORMAL) 08/12/21 06:14 RBC Morph Micro Appear 2+ HYPOCHROMASIA (NORMAL) 1+ MACROCYTOSIS (NORMAL) 08/12/21 06:14 RBC Morph Micro Appear 2+ HYPOCHROMASIA (NORMAL) 1+ MACROCYTOSIS (NORMAL) 08/12/21 06:14 Bld Gas Analysis Time 2230 08/15/21 22:23 Sample Site RIGHT RADIAL 08/15/21 22:23 ABG pH 7.38 (7.35-7.45) 08/15/21 22:23 ABG pCO2 43 mmHg (34-45) 08/15/21 22:23 ABG pO2 68 mmHg (80-100) L 08/15/21 22:23 ABG HCO3 24.8 mmol/L (22.0-26.0) 08/15/21 22: ABG Total CO2 26.1 MMOL/L (21.0-29.0) 08/15/21 22: ABG O2 Saturation 94 % (94-98) 08/15/21 22: ABG Base Excess -0.5 mmol/L (-2.0-3.0) 08/15/21 22:23 Da Test POSITIVE 08/15/21 22:23 O2 Delivery Device NASAL CANNULA 08/15/21 22:23 O2 Liters/Min 2.00 LPM 08/15/21 22:23 Sodium 142 mmol/L (135-145) 08/16/21 04:59 Potassium 4.1 mmol/L (3.5-5.0) 08/16/21 04:59 Chloride 109 mmol/L (101-111) 08/16/21 04:59 Carbon Dioxide 24 mmol/L (21-32) 08/16/21 04:59 Anion Gap 9.0 (6-13) 08/16/21 04:59 BUN 44 mg/dL (6-20) H 08/16/21 04:59 Creatinine 2.7 mg/dL (0.6-1.2) H 08/16/21 04:59 Estimated GFR (MDRD) 23 (>89) L 08/16/21 04:59 Glucose 143 mg/dL (70-100) H 08/16/21 04:59 Lactic Acid 2.2 mmol/L (0.5-2.2) 08/12/21 21:10 Calcium 8.2 mg/dL (8.5-10.3) L 08/16/21 04:59 Magnesium 1.7 mg/dL (1.7-2.8) 08/11/21 22:06 Total Bilirubin 5.6 mg/dL (0.2-1.0) H 08/15/21 16:49 AST 31 IU/L (10-42) 08/15/21 16:49 ALT 31 IU/L (10-60) 08/15/21 16:49 Alkaline Phosphatase 276 IU/L (42-121) H 08/15/21 16:49 Troponin I High Sens 136.4 ng/L (2.3-19.7) H* 08/15/21 21:56 Total Protein 5.3 g/dL (6.7-8.2) L 08/15/21 16:49 Albumin 2.3 g/dL (3.2-5.5) L 08/15/21 16:49 Globulin 3.0 g/dL (2.1-4.2) 08/15/21 16:49 Albumin/Globulin Ratio 0.8 (1.0-2.2) L 08/15/21 16:49 Lipase 30 U/L (22-51) 08/11/21 22:06 Urine Color DARK YELLOW 08/13/21 12:08 Urine Clarity CLEAR (CLEAR) 08/13/21 12:08 Urine pH 5.5 PH (5.0-7.5) 08/13/21 12:08 Ur Specific [place] 1.015 (1.002-1.030) 08/13/21 12:08 Urine Protein TRACE mg/dL (NEGATIVE) 08/13/21 12:08 Urine Glucose (UA) NEGATIVE mg/dL (NEGATIVE) 08/13/21 12:08 Urine Ketones TRACE mg/dL (NEGATIVE) 08/13/21 12:08 Urine Occult Blood SMALL (NEGATIVE) H 08/13/21 12:08 Urine Nitrite NEGATIVE (NEGATIVE) 08/13/21 12:08 Urine Bilirubin NEGATIVE (NEGATIVE) 08/13/21 12:08 Urine Urobilinogen 0.2 (NORMAL) E.U./dL (NORMAL) 08/13/21 12:08 Ur Leukocyte Esterase NEGATIVE (NEGATIVE) 08/13/21 12:08 Urine RBC 0-5 /HPF (0-5) 08/13/21 12:08 Urine WBC 0-3 /HPF (0-3) 08/13/21 12:08 Ur Squamous Epith Cells FEW Squamous (<= Few) 08/13/21 12:08 Amorphous Sediment Moderate /LPF 08/13/21 12:08 Urine Bacteria Moderate /HPF (None Seen) H 08/13/21 12:08 Urine Casts 0-2 Granular Casts /LPF 08/13/21 12:08 Urine Culture Comments NOT INDICATED 08/13/21 12:08 Nasal Adenovirus (PCR) NOT DETECTED 08/11/21 22:43 Nasal B. parapertussis DNA (PCR) NOT DETECTED 08/11/21 22:43 Nasal Coronavir 229E PCR NOT DETECTED 08/11/21 22:43 Nasal Coronavir HKU1 PCR NOT DETECTED 08/11/21 22:43 Nasal Coronavir NL63 PCR NOT DETECTED 08/11/21 22:43 Nasal Coronavir OC43 PCR NOT DETECTED 08/11/21 22:43 Nasal Enterovir/Rhinovir PCR NOT DETECTED 08/11/21 22:43 Nasal Influenza B PCR NOT DETECTED 08/11/21 22:43 Nasal Influenza A PCR NOT DETECTED 08/11/21 22:43 Nasal Parainfluen 1 PCR NOT DETECTED 08/11/21 22:43 Nasal Parainfluen 2 PCR NOT DETECTED 08/11/21 22:43 Nasal Parainfluen 3 PCR NOT DETECTED 08/11/21 22:43 Nasal Parainfluen 4 PCR NOT DETECTED 08/11/21 22:43 Nasal RSV (PCR) NOT DETECTED 08/11/21 22:43 Nasal Screen MRSA (PCR) NEGATIVE (NEGATIVE) 08/15/21 21:55 Nasal B.pertussis DNA PCR NOT DETECTED 08/11/21 22:43 Nasal C.pneumoniae (PCR) NOT DETECTED 08/11/21 22:43 Valeriy Human Metapneumo PCR NOT DETECTED 08/11/21 22:43 Nasal M.pneumoniae (PCR) NOT DETECTED 08/11/21 22:43 Nasal SARS-CoV-2 (PCR) NOT DETECTED 08/11/21 22:43 - Procedures Procedures: Procedures EXCISION OF ASCENDING COLON, ENDO (08/15/16) EXCISION OF CECUM, ENDO, DIAGN (04/19/21) EXCISION OF DUODENUM, ENDO, DIAGN (04/19/21) EXCISION OF ESOPHAGOGASTRIC JUNCTION, ENDO, DIAGN (04/19/21) EXCISION OF ESOPHAGUS, ENDO, DIAGN (01/15/18) EXCISION OF ILEUM, ENDO, DIAGN (04/19/21) EXCISION OF LOWER ESOPHAGUS, ENDO, DIAGN (04/19/21) EXCISION OF STOMACH, PYLORUS, ENDO, DIAGN (04/19/21) INSPECTION OF LOWER INTESTINAL TRACT, ENDO (08/27/18) TRANSFUSE NONAUT RED BLOOD CELLS IN PERIPH VEIN, PERC (04/19/21) ABX Reporting Has patient been on IV antibiotics over the past 48 hours?: Yes
[2021-08-17] MEDS: ENOXAPARIN 80 MG/0.8 ML SYRINGE SUBQ SCH (17:13)
[2021-08-17] MEDS: SODIUM CHLORIDE FLUSH 0.9% 10 ML SYRINGE IVP PRN (19:36)
[2021-08-17] MEDS: ATORVASTATIN 10 MG TABLET PO SCH (20:13)
[2021-08-18] MEDS: PIPERACILLIN/TAZOBACTAM 3.375 GM in SODIUM CHLORIDE 0.9% MINIBAG 100 ML IV SCH (04:07)
[2021-08-18] MEDS: SODIUM CHLORIDE FLUSH 0.9% 10 ML SYRINGE IVP PRN ×2 (04:07→08:39)
[2021-08-18] MEDS: TAMSULOSIN 0.4 MG CAPSULE PO SCH (09:58)
[2021-08-18] MEDS: PANTOPRAZOLE 40 MG TABLET PO SCH (09:58)
[2021-08-18] MEDS: SACCHAROMYCES BOULARDII 250 MG CAPSULE PO SCH (09:58)
[2021-08-18] MEDS: SODIUM CHLORIDE FLUSH 0.9% 10 ML SYRINGE IVP SCH (10:03)
[2021-08-18] MEDS: polyethylene glycoL 3350 17 GM PACKET PO SCH (10:04)
[2021-08-18] MEDS: DOCUSATE SODIUM 250 MG CAPSULE PO SCH (10:05)
[2021-08-18 12:09] VITALS: BP 105/54
--- NOTE | 2021-08-18 12:33 | Discharge Plan ---
Discharge Plan Problem Reviewed?: Yes Disposition: Home, Self Care Condition: Good Prescriptions: Tamsulosin [Flomax] 0.4 mg PO DAILY #30 cap Saccharomyces Boulardii [Florastor] 250 mg PO BIDWM #60 cap Codeine Phosphate/Guaifenesin [Guaifen-Codeine 200-20 mg/10Ml] 10 ml PO Q6H PRN #60 ml PRN Reason: Cough No Smoking: If you smoke, Please STOP! Call for help. Follow-up with: Basia Shaw PA-C [Primary Care Provider] -
--- NOTE | 2021-08-18 18:21 | DISCHARGE SUMMARY ---
"Discharge Summary Admit Date: 08/12/21 Discharge Date: 08/18/21 Discharging Provider: Melvin Tavares MD Primary Care Provider: Dhiraj Shaw Code Status: Do Not Attempt Resuscitation Condition at Discharge: Good Discharge Disposition: 01 Home, Self Care - DIAGNOSES Admission Diagnoses: Hypoxia Chemical pneumonitis Pulmonary hypertension Vomiting CKD stage IV Discharge Diagnoses with Status of Each Condition: Hypotension - Improved Cardiac shock syndrome - Improved Bacteremia - Stable CKD stage IV - Stable - HPI History of Present Illness: This 85 year old male with history of Pulmonary HTN, iron deficiency anemia, htn, CAD, an A-fib presented to ED earlier today for abdominal pain, nausea, and vomiting thought to be attributed to a type of gastritis. Upon discharging the patient with promethazine and pain medication the patient vomited in the lobby and was readmitted to the ED. A pleural effusion was noted on x-ray that has been previously documented and that he normally suffers SOB from along with his pulmonary htn. The patient was given oxygen and labs were drawn in the ED. He is admitted to the floor for hypoxia. The patient is afebrile, has an elevated WBC count, and appears slightly hypoxic. His HR is 70, BP is currently 90/40, and O2 saturation of 98% on 3L. He is severely hard of hearing, but can answer questions appropriately. His baseline and ROS is difficult to obtain due his hearing loss and level of comfort at this time. - CONSULTS | PROCEDURES Consultations: Hospice - HOSPITAL COURSE Hospital Course: Patient was admitted On IV antibiotics. He did well on room air. Vomiting improved. Renal function improved. Pleural effusion was medically managed. He is doing fairly well however on 08 15 he had a an episode of severe hypotension and change in mental status, becoming very lethargic. He was started on dopamine drip. Family was called and is he also had elevated troponins during this time and it was considered that he may be having an NSTEMI. They arrived and expressed wishes that as long as he is kept comfortable, that he is not to be resuscitated and that they were ready to say their goodbyes. The next day he continued to be on dopamine and recovered quite well, mentation normalized, troponin started to trend down. It was thought possibly he was deh ydrated, became hypovolemic and hypotensive from this. However this experience prompted discussion about goals of care and end-of-life. Patient initially expressed wishes to , in fact even asking for help finding information on assisted suicide. He then changed his mind and decided he would like to survive long enough to go home, and was seen by the hospice attending, and he agreed to go home with minimal interventions, and will be admitted to hospice in the coming days.He was given enough antibiotics to complete his course for bacteremia. - ALLERGIES Allergies/Adverse Reactions: Allergies Allergy/AdvReac Type Severity Reaction Status Date / Time Iodine and Iodide Containing Allergy Rash Verified 08/11/21 21:58 Produc dabigatran etexilate AdvReac Unknown Verified 08/11/21 21:58 [From Pradaxa] tizanidine AdvReac syncope Verified 08/11/21 21:58 - MEDICATIONS Home Medications: Ambulatory Orders Medication Instructions Recorded Confirmed Metoprolol Succinate [Toprol Xl] 25 mg ORAL DAILY 08/15/16 08/11/21 Simvastatin 20 mg ORAL QPM 08/15/16 08/11/21 Ferrous Sulfate 1 tab PO DAILY 01/14/18 08/11/21 Losartan Potassium 12.5 mg PO DAILY 01/14/18 08/11/21 Pantoprazole [Protonix] 40 mg PO DAILY 01/14/18 08/11/21 Umeclidinium Brm/Vilanterol Tr 1 puffs INH DAILY 01/14/18 08/11/21 [Anoro Ellipta 62.5-25 Mcg INH] Tamsulosin [Flomax] 0.4 mg PO BID 04/19/21 08/11/21 Torsemide 40 mg PO DAILY 04/19/21 08/11/21 allopurinoL [Zyloprim] 100 mg PO DAILY 04/19/21 08/11/21 Famotidine [Pepcid] 20 mg PO BID #20 tablet 08/11/21 08/11/21 HYDROcod/ACETAM 5/325 [[place] 5/325] 1 ea PO Q6H PRN #12 tablet 08/11/21 08/11/21 Promethazine [Phenergan] 25 mg PO Q6H PRN #12 tab 08/11/21 08/11/21 Codeine Phosphate/Guaifenesin 10 ml PO Q6H PRN #60 ml 08/18/21 [Guaifen-Codeine 200-20 mg/10Ml] Saccharomyces Boulardii [Florastor] 250 mg PO BIDWM #60 cap 08/18/21 Tamsulosin [Flomax] 0.4 mg PO DAILY #30 cap 08/18/21 levoFLOXacin [Levaquin] 500 mg PO DAILY 8 Days #8 tablet 08/18/21 - PHYSICAL EXAM AT DISCHARGE General Appearance: positive: No acute distress Respiratory: positive: Chest non-tender, No respiratory distress, Breath sounds nml Cardiovascular: positive: Regular rate & rhythm, No murmur, No gallop Neurologic/Psychiatric: positive: Oriented x3 - LABS Result Diagrams: 08/16/21 04:59 08/16/21 04:59 - FOLLOW UP Follow Up: PCP and Hospice - TIME SPENT Time Spent in Discharge (Minutes): 46"
== END 2021-08-18 13:25 | disposition home or self-care (01) | DRG 871 ==
LOC: ED 21:48 → MS2 08-12 00:46 → OBSVTOIN 08-13 10:43 → INTOOBSV 08-13 10:43 → ICU 08-15 21:54
PROVIDERS: ADMIT Specialist; ATTEND Family Medicine Sports Medicine
DX: A41.9 Sepsis, unspecified organism (principal); R11.2 Nausea with vomiting, unspecified; J69.0 Pneumonitis due to inhalation of food and vomit; R57.0 Cardiogenic shock; I21.4 Non-ST elevation (NSTEMI) myocardial infarction; I48.91 Unspecified atrial fibrillation; J91.8 Pleural effusion in other conditions classified elsewhere; N18.4 Chronic kidney disease, stage 4 (severe); E78.00 Pure hypercholesterolemia, unspecified; N39.0 Urinary tract infection, site not specified; I13.0 Hypertensive heart and chronic kidney disease with heart failure and stage 1 through stage 4 chronic kidney disease, or unspecified chronic kidney disease; I50.32 Chronic diastolic (congestive) heart failure; I48.0 Paroxysmal atrial fibrillation; D50.9 Iron deficiency anemia, unspecified; R09.02 Hypoxemia; I27.20 Pulmonary hypertension, unspecified; Z20.822 Contact with and (suspected) exposure to COVID-19; R11.10 Vomiting, unspecified; E86.0 Dehydration; I25.10 Atherosclerotic heart disease of native coronary artery without angina pectoris; Z95.2 Presence of prosthetic heart valve; K21.9 Gastro-esophageal reflux disease without esophagitis; N40.1 Benign prostatic hyperplasia with lower urinary tract symptoms; R33.8 Other retention of urine; M19.90 Unspecified osteoarthritis, unspecified site; M10.9 Gout, unspecified; H91.90 Unspecified hearing loss, unspecified ear; Z66 Do not resuscitate; Z79.899 Other long term (current) drug therapy; Z87.11 Personal history of peptic ulcer disease; Z86.010 Personal history of colon polyps; Z87.891 Personal history of nicotine dependence; Z95.0 Presence of cardiac pacemaker; Z51.5 Encounter for palliative care
CPT/HCPCS: 36415; 36600; 71045; 71046; 80048; 80053; 81001; 82803; 83605; 83690; 83735; 84484; 85025; 87040; 87077; 87150; 87181; 87631; 93005; 93306; 96361; 96365; 96366; 96375; 96376; 97162; 97165; A9270; G0378; J1650; J7120; Q0162; Q0169; 0202U; 87086

== ENCOUNTER 2022-05-09 19:49 | Outpatient (CLI) | payer MEDICARE, OTHER | END 2022-05-09 19:50 | disposition left against medical advice (07) | LOC: EMS 19:49 | DX: R06.02 Shortness of breath (principal); R53.1 Weakness ==

== ENCOUNTER 2022-05-23 19:35 | Outpatient (CLI) | payer MEDICARE, OTHER | END 2022-05-23 19:36 | disposition EMS.NT | LOC: EMS 19:35 | DX: M25.511 Pain in right shoulder (principal); S81.812A Laceration without foreign body, left lower leg, initial encounter; W01.0XXA Fall on same level from slipping, tripping and stumbling without subsequent striking against object, initial encounter; Y92.009 Unspecified place in unspecified non-institutional (private) residence as the place of occurrence of the external cause ==

== ENCOUNTER 2022-09-13 21:04 | Outpatient (CLI) | payer MEDICARE, OTHER | END 2022-09-13 21:05 | disposition EMS.NT | LOC: EMS 21:04 | DX: Z03.89 Encounter for observation for other suspected diseases and conditions ruled out (principal) ==

== ENCOUNTER 2022-10-08 16:10 | Outpatient (CLI) | payer MEDICARE, OTHER | END 2022-10-08 23:59 | disposition EMS.NT | LOC: EMS 16:10 | DX: R55 Syncope and collapse (principal); S00.01XA Abrasion of scalp, initial encounter; W18.39XA Other fall on same level, initial encounter; Y92.008 Other place in unspecified non-institutional (private) residence as the place of occurrence of the external cause ==